=== PATIENT | female | born 2000 | race Caucasian/White ===

== ENCOUNTER 2021-11-30 13:02 | Emergency (ER) | payer OTHER, SELFPAY ==
[2021-11-30 13:22] VITALS: BP 120/86; BP 129/67; PULSE 80; RESP 16; TEMP 35.9; O2SAT 94; O2SAT 98; BMI 18.2
--- NOTE | 2021-11-30 13:59 | ED_ITS ---
HPI - General Adult General Chief complaint: ETOH/Substance Use Stated complaint: HEROIN SNORTED,NOT OD,NO NARCAN GIVEN PER EMS Time Seen by Provider: 11/30/21 13:55 Source: patient and EMS Mode of arrival: EMS Limitations: no limitations History of Present Illness HPI narrative: 21-year-old female history of drug abuse brought in by EMS for possible OD. Patient is known history of heroin abuser, patient admitted to snoring heroin today, found by her father who called the ambulance, reportedly that the patient was sober for a while. Patient in the ED is diaphoretic, semi responsive only to rubbing her chest, with pinpoint pupil, patient was given 4 mg of nasal Narcan more awake. Patient declined depression, no SI, no HI. Related Data Allergies Allergy/AdvReac Type Severity Reaction Status Date / Time egg [EGGS] Allergy Unknown UNKNOWN Unverified 04/09/20 19:11 gluten [GLUTEN] Allergy Unknown UNKNOWN Unverified 04/09/20 19:11 DAIRY PRODUCTS Allergy Unknown UNKNOWN Uncoded 04/09/20 19:11 Review of Systems Review of Systems: All other systems are reviewed and are negative Constitutional: Reports as per HPI and Reports no additional constitutional complaints Eyes: Reports as per HPI and Reports no additional eye complaints Reports system reviewed and no additional complaints, except as documented Cardiovascular: Reports as per HPI and Reports no additional cardiovascular complaints Respiratory: Reports as per HPI and Reports no additional respiratory complaints Gastrointestinal: Reports as per HPI and Reports no additional gastrointestinal complaints Genitourinary: Reports no additional female genitourinary complaints Musculoskeletal: Reports no additional musculoskeletal complaints Skin/Breast: Reports system reviewed and no additional complaints, except as docu Psychiatric: Reports no additional psychiatric complaints Endocrine: Reports no additional endocrine complaints Hematologic/Lymphatic: Reports no additional hematologic/lymphatic complaints Allergic/Immunologic: Reports no additional allergic/immunologic complaints Reports system reviewed and no additional complaints, except as documented and Reports Abnormal speech present [facility] Social History Social History Advance Directives: No Advance Directives Information Provided: No Patient : No Physical Exam ED Vital Signs: Vital Signs - 24 hr 11/30/21 13:22 11/30/21 15:54 Temperature 96.6 F L 97.8 F Pulse Rate 80 109 H Respiratory Rate 16 18 Blood Pressure 129/67 135/90 H Pulse Oximetry 98 99 BMI result Body Mass Index 18.2 Vital signs have been reviewed as appeared to be correct. Blood pressure normal. Heart rate normal. Respiration rate normal. Temperature normal. Oxygen saturation normal. Appearance: Alert. Oriented X3. No acute distress. Head: Normal external exam. Normocephalic. Atraumatic. No [place] signs noted. No raccoon eyes noted Eyes: Pin point pupils. EOMI. Conjunctiva and sclera normal. Eyelids normal. ENT: TM's Normal. Pharynx normal. Uvula midline. Moist mucous membranes. No trismus noted. No drooling noted. No muffled voice noted. Neck: Normal inspection. Neck supple. FROM. No adenopathy. Thyroid Normal. No meningeal signs. No neck mass noted. CVS: Normal heart rate and rhythm. Heart sound normal. No murmurs noted. Pulses normal throughout. Respiratory: No respiratory distress. Painless inspiration. Breath sounds normal. No wheezes/rales/rhonchi noted. Chest nontender. No accessory muscle usage noted or decreased air movement noted. Abdomen: Soft and nontender. Bowel sounds normal in all 4 quadrants. No distention noted. No organomegaly noted. No visible injury noted. Back: No CVA tenderness. Full range of motion noted. Skin: Skin warm and dry. Normal skin color. Normal skin turgor. No rashes/lesions/lacerations noted. Extremities: No lower extremity edema. Extremities exhibit normal range of motion. Extremities nontender. Neuro: Oriented X 3 after 4 mg of nasal Narcan was administrated. Cranial nerve exam: II-XII are grossly intact No motor deficit. No sensory deficit. Reflexes normal. Course Course Course Narrative: Assessment and plan. 21 years old female with history of heroin abuse, more responsive after was given nasal Narcan, will discharge with take-home nasal Narcan and interview with the care team. Patient declined any SI or HI. Reevaluation(s) Reevaluation #1: Several conversation with the patient to convince her for going to rehab and detox patient preferred to go home, patient feel safe to be discharged home. Time: 17:00 Discharge Plan Discharge Clinical Impression: Substance abuse Patient Disposition: Home, Self-Care Instructions: Polysubstance Abuse (ED)
[2021-11-30] MEDS: Naloxone HCl Nasal 4 MG SPRAY NOSTRILALT (14:03)
--- NOTE | 2021-11-30 14:07 | PC.NURSE ---
PT GIVEN 4 MG NASAL NARCAN D/T UNRESPONSIVENESS WHEN EVALUATED BY PROVIDER. PT RESPONSIVE TO MEDICATION, AWAKE AND ALERT, NOT IN ACUTE OPIATE WITHDRAWAL. TOLERATING PO W/O ISSUE. DENIES ANY SI/HI, BUT ADMITS TO RECREATIONAL, AND REGULAR HEROIN USE.
[2021-11-30] MEDS: methADONE HCl 20 MG/2 ML ORAL.CONC PO (15:08)
--- NOTE | 2021-11-30 15:26 | HO.SUDE ---
Addendum entered by Cee Nguyen 11/30/21 15:45: Please also see Addiction Medicine Consult note by Luzmaria Hughes APRN. Original Note: Met with pt in 6H to discuss substance use and overdose. Pt laying in bed, awake, alert, easily engaged in conversation. Pt reports using heroin, 1 bag IN [employer]. Prior to this, pt reports last use was 3 days ago. Pt had been using 1 bundle daily and reports IV use in the past. Age of first use was 15. In addition, pt reports using Vicodin, PO, to not get sick. Pt receives this through another person's prescription. Pt has been to treatment in the past, including ATS and 6 month residential tx in [place]. Most recent ATS admission in Jul 2021. Pt reporting withdrawal symptoms including upset stomach, body aches, chills. Pt visibly diaphoretic with dilated pupils. Pt is interested in methadone to address withdrawal symptoms. Has been prescribed Suboxone through [facility] on [address] as recently as 2 weeks ago but has been thinking about transitioning to methadone. Pts longest period in recovery was 2 years, pt reports having a boyfriend was helpful to maintain recovery. Pt is interested in ATS at this time. T/w will initiate bedsearch. Denies questions or concerns. Discussed with Luzmaria Hughes APRN.
--- NOTE | 2021-11-30 15:27 | HO.ADDICTCON ---
History of Present Illness Date of Service: 11/30/2021 Chief Complaint: HEROIN SNORTED,NOT OD,NO NARCAN GIVEN PER EMS Reason for Consult: overdose HPI Narrative: Patient is a 21 year old female in ED following opioid overdose requiring narcan. When seen by this fiction writer patient was awake, alert, diaphoretic, reporting chills, and restless. Reports she has been using opioids since age of 15. Had 2 years in recovery from [age] and started using again at 18. She has had approx 6 previous overdoses (this is first visit to [facility]) Has been on both vivitrol and buprenorphine--most recently buprenorphine up until about 2 weeks ago when she stopped taking it and was using heroin instead Has been using approx a bundle QD, reports prior to arrival using 1 bag IN History of IVDU Limited social supports. Lives with her father, but states he is unwilling to take her back home because I have done this to him so many times Denies any cocaine, benzodiazepine or alcohol use Tearful and requesting assistance with getting into treatment. Discussed treating withdrawals and patient declined restarting bupreorphine and accepted methadone--reporting that she had been considering transitioning to this. Only other previous methadone treatment has been in ATS setting when given as a taper during detox. Past Psychiatric History: Not reviewed Personal & Social History: Lives with her father, currently not employed. Limited social supports Review of Systems Constitutional: Reports as per HPI Diagnostics Vital Signs (24Hr): Vital Signs - 24 hr 11/30/21 13:22 Temperature 96.6 F L Pulse Rate 80 Respiratory Rate 16 Blood Pressure 129/67 Pulse Oximetry 98 BMI result Body Mass Index 18.2 Mental Status Exam Mental Status Exam Patient Appearance: Perspiring Patient Orientation: Person, Place, Time and Situation Patient Behavior: Cooperative and Crying Mood Description: Sad Affect Description: Sad Thought Process: Linear Thought Content: positive for Linear Judgement: Fair Medications Allergies Allergies Allergy/AdvReac Type Severity Reaction Status Date / Time egg [EGGS] Allergy Unknown UNKNOWN Unverified 04/09/20 19:11 gluten [GLUTEN] Allergy Unknown UNKNOWN Unverified 04/09/20 19:11 DAIRY PRODUCTS Allergy Unknown UNKNOWN Uncoded 04/09/20 19:11 Assessment & Plan Assessment & Plan (1) Opioid use disorder: Status: Acute Code(s): F11.90 - Opioid use, unspecified, uncomplicated Assessment and Plan: methadone 20mg administered to address withdrawal sx RSRN notified regarding patients desire for ATS referral/admission I spent __30____ minutes with the patient and/or on the patient floor today, greater than?50% of which was spent counseling/coordinating care. PMF Social History Social History Advance Directives: No Advance Directives Information Provided: No Patient : No
[2021-11-30 15:54] VITALS: BP 135/90; PULSE 109; RESP 18; TEMP 36.6; O2SAT 99
--- NOTE | 2021-11-30 16:30 | MHC.RECOVRN ---
Pt had been interested in ATS, referral sent to [facility] due to having a bed available. When [facility] requested phone screen, pt declined the bed. Pt states I just want to go home and see my dog and have a cigarette. My dad is coming to get me. As long as I go to treatment tomorrow I can go home. Pt plans to follow up with [facility] and encouraged to return to [facility] if needed. Pt provided with t/w contact information as well. Discussed with CARE Team as well as Luzmaria Hughes APRN.
[2021-11-30] MEDS: Ondansetron ODT 4 MG TAB.RAPDIS TRANSLINGU (16:51)
== END 2021-11-30 17:21 | disposition home or self-care (01) ==
LOC: HO.ED 14:42
PROVIDERS: Emergency Provider Emergency Medicine
DX: T40.1X1A Poisoning by heroin, accidental (unintentional), initial encounter (principal); Y92.9 Unspecified place or not applicable; F11.10 Opioid abuse, uncomplicated; Z71.51 Drug abuse counseling and surveillance of drug abuser
CPT/HCPCS: 99283

== ENCOUNTER 2023-04-13 07:50 | Outpatient (AMB) | payer OTHER, SELFPAY ==
[2023-04-13 07:55] VITALS: BP 104/52; PULSE 67; O2SAT 98; BMI 19.4
--- NOTE | 2023-04-13 07:55 | MHC.PC.OV ---
Vital Signs 04/13/23 07:55 Height 5 ft 4 in Weight 113 lb BMI 19.4 BP 104/52 L Blood Pressure Location Lt brachial Position Sitting Pulse 67 Pulse Source Pulse Oximeter Pulse Oximetry (%) 98 Oxygen Delivery Method Room Air Intake Visit Reasons: New patient-requesting physical Allergies egg [EGGS] Allergy (Unknown, Verified 04/13/23 08:10) UNKNOWN gluten [GLUTEN] Allergy (Unknown, Verified 04/13/23 08:10) UNKNOWN DAIRY PRODUCTS Allergy (Unknown, Uncoded 04/13/23 07:55) UNKNOWN Medication List - Last Reconciled 04/13/23 by Yonis Steward PA-C atomoxetine (Strattera) 40 mg PO DAILY oxcarbazepine (Trileptal) 600 mg PO BEDTIME quetiapine (Seroquel) 300 mg PO BEDTIME Tobacco use date assessed: 04/13/23 Dental Screening Dental Screen Date: 04/13/23 Did you have a dental visit in the last 12 months?: Yes Did you have a dental problem in the last 6 months where you did not have access to dental care?: No Was dental information given to patient?: Patient has dentist HPI New patient-requesting physical HPI Details Patient is a 22-year-old female here today as a new patient requesting annual physical. Patient has a past medical history significant for ADHD, major depressive disorder, opiate use disorder. .. MDD: does see a psyciatrsit and mental health therapist. He does have a history of the opiate do cyst order and has been clean and sober from opiates over the last nearly 17 months. Has had her Sever's license taken away due to reckless driving and now needs evaluations every month including drug screens to confirm her sobriety. RV paperwork filled out today in office. 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 1. Little interest or pleasure in doing things: more than half the days 2. Feeling down, depressed, or hopeless: more than half the days 3. Trouble falling or staying asleep, or sleeping too much: nearly every day 4. Feeling tired or having little energy: nearly every day 5. Poor appetite or overeating: more than half the days 6. Feeling bad about yourself - or that you are a failure or have let yourself or your family down: several days 7. Trouble concentrating on things, such as reading the newspaper or watching television: several days 8. Moving or speaking so slowly that other people could have noticed. Or the opposite - being so fidgety or restless that you have been moving around a lot more than usual: not at all 9. Thoughts that you would be better off or of hurting yourself in some way: not at all Total score: 14 Depression Screening Interpretation: Positive Source: Developed by Drs. Baltazar Granados, Estelle Taylor, David Brandt and colleagues, with an educational izabel from [employer]. Thrive Questionnaire Date Thrive assessed: 04/13/23 I am a: Patient What is your living situation today?: I have a steady place to live Within the past 12 months, did the food you bought not last and you didn't have the money to get more?: Never true Within the past 12 months, did you worry whether your food would run out before you got money to buy more?: Never true Do you have trouble paying for medicines?: No Do you have trouble getting transportation to medical appointments?: No Do you have trouble paying your heating and electricity bill?: No Do you have trouble taking care of your child, family member or friend?: No Do you have trouble with day-to-day activities such as bathing, preparing meals, shopping, managing finances, etc.?: No Are you currently unemployed and looking for a job?: No Are you interested in more education?: No Currently or been in a relationship where the following occur: no concerns reported AUDIT C Alcohol Use Questionnaire (AUDIT-C) 1. How often do you have a drink containing alcohol?: 2-4 times a month 2. How many drinks containing alcohol do you have on a typical day when you are drinking?: 1 or 2 3. How often do you have six or more drinks on one occasion?: Never Total Score: 2 MARY-7 AMB Questionnaire MARY-7 Date MARY - 7 assessed: 04/13/23 Feeling nervous, anxious, or on edge: 1 = Several days Not being able to stop or control worryin = Not at all Worrying too much about different things: 0 = Not at all Trouble relaxin = Several days Being so restless that it is hard to sit still: 1 = Several days Becoming easily annoyed or irritable: 2 = More than half the days Feeling afraid as if something awful might happen: 0 = Not at all Total MARY-7 score (0-4 normal; 5-9 mild; 10-14 moderate; 15-21 severe): 5 Source: Developed by Drs. Baltazar Granados, Estelle Taylor, David Brandt and colleagues, with an educational izabel from [employer]. Review of Systems Const Denies body aches, Denies chills, Denies excessive sweating, Denies fatigue, Denies fever(s) and Denies headache(s) Eyes Denies blurry vision ENT Denies dysphagia, Denies vertigo, Denies dizziness, Denies headache(s), Denies hearing loss and Denies tinnitus Card Denies chest pain, Denies chest pain with activity, Denies syncope, Denies irregular heart rhythm and Denies dyspnea Resp Denies chest congestion, Denies cough, Denies hemoptysis, Denies dyspnea and Denies wheezing GI Denies abdominal pain, Denies melena, Denies hematochezia, Denies coffee ground emesis, Denies dysphagia, Denies diarrhea, Denies nausea and Denies vomiting Denies urinary frequency, Denies dysuria, Denies urinary hesitancy and Denies urinary urgency Musc Denies arthralgias, Denies limited range of motion, Denies muscle cramps and Denies muscle weakness Skin/Breast Denies rash and Denies skin ulcer Neuro Denies Abnormal speech present, Denies confusion, Denies vertigo, Denies dizziness, Denies syncope, Denies headache(s), Denies memory loss and Denies seizure-like activity Psych Denies anxiety, Denies confusion, Denies depression, Denies memory loss, Denies panic attacks and Denies paranoia Endo Denies excessive sweating, Denies fatigue, Denies flushing, Denies polydipsia and Denies polyuria Aller/Immun Denies wheezing Physical exam (Primary Care) Vital Signs: Last Vital Signs Pulse 67 04/13/23 07:55 BP 104/52 L 04/13/23 07:55 Pulse Ox 98 04/13/23 07:55 Oxygen Delivery Method Room Air 04/13/23 07:55 BMI result Body Mass Index 19.4 Tobacco/Smoking Status: Tobacco use Status Tobacco use date assessed 04/13/23 04/13/23 08:07 Patient Tobacco Use Status Current everyday Tobacco 04/13/23 08:16 Tobacco use type Smokeless Tobacco 04/13/23 08:16 e-Cigarette/Vaping Use Currently Using 04/13/23 08:16 PHQ-9: PHQ-9 Score PHQ-9: Total score 14 04/13/23 08:12 Depression Screening Interpretation: Positive Thrive Assessment: Date of Thrive Assessment Date Thrive assessed 04/13/23 04/13/23 08:07 Currently or been in a relationship where the following occur: no concerns reported Const General: cooperative, comfortable, no acute distress, alert and awake; No confusion Orientation/consciousness: oriented to person, oriented to place, patient oriented x3 and No confusion HENMT Head: Yes normocephalic Ears: external ears normal and TM's normal bilaterally Face and sinus: No sinus tenderness Mouth: Normal oral and palatal mucosa present and tongue normal Teeth and gingiva: dentition normal and gingiva normal Throat: Yes posterior oropharynx normal, Yes tonsils normal and Yes uvula midline Eyes Conjunctivae: conjunctivae normal Sclerae: sclerae normal Pupils: Equal, round and reactive pupils present EOM: EOMs intact bilaterally Direct Ophthalmoscopy: No no photophobia Neck Neck: Yes no lymphadenopathy, No tender and Yes no JVD Thyroid: Thyroid normal Carotids: no bruits Chest Chest palpation & inspection: no tenderness Resp Effort & Inspection: normal respiratory effort, no audible wheezes, not labored and no stridor Auscultation: no crackles, no rales, no rhonchi and no wheezes Cardio Jugular venous distension: no JVD Rate: regular rate, not bradycardic and not tachycardic Rhythm: regular rhythm Bruits: no carotid bruits Peripheral pulses: Peripheral pulses 2+ throughout GI Inspection: Yes normal to inspection, No abdominal wall ecchymosis and No visible herniation Palpation (GI): Soft to palpation, nontender, no guarding, not rigid and No hepatosplenomegaly present Auscultation: normoactive bowel sounds General: Yes no CVA tenderness Back/Spine/Pelvis Back: no CVA tenderness and No back tenderness Cervical Spine: cervical ROM normal Thoracic/Lumbar Spine: thoracic and lumbar spine normal to inspection, straight leg raise negative bilaterally, No thoraco-lumbar ROM limited and No lumbar spinal tenderness Skin Lesions: no lesions Rashes: no rashes Wounds: no wounds Neuro General: oriented to person, oriented to place, patient oriented x3, CN's II-XI intact bilaterally and No confusion Cranial nerves: Yes Equal, round and reactive pupils present and Yes Normal accommodation reflex present Cognition (Neuro): normal cognition Speech: No Abnormal speech present Gait exam (Neuro): Normal gait present Motor exam (neuro): 5/5 motor strength present throughout Extrem Right upper extremity: full ROM; no cyanosis Left upper extremity: full ROM; no cyanosis Right lower extremity: no edema Left lower extremity: no edema Psych Appearance: grossly normal Mental Status: mental status grossly normal Affect: normal affect Attitude: cooperative Thought process: Normal thought process present Assessment and Plan Assessment & Plan (1) Annual physical exam: Code(s): Z00.00 - Encounter for general adult medical examination without abnormal findings (2) MDD (major depressive disorder), recurrent episode, moderate: Code(s): F33.1 - Major depressive disorder, recurrent, moderate Plan: Patient does have a history of major depressive disorder and bipolar disorder. See is seeing a mental health therapist and a psychiatrist who manages her mental health medication. She feels fairly well stable from a mental health point of view at this time. (3) Bipolar disorder: Code(s): F31.9 - Bipolar disorder, unspecified Qualifiers: Active/Remission status: in full remission Most recent bipolar episode type: hypomanic Qualified Code(s): F31.72 - Bipolar disorder, in full remission, most recent episode hypomanic Plan: As above Followed by psychiatrist and is on medication has stabilized her mood. (4) Screening for diabetes mellitus (DM): Code(s): Z13.1 - Encounter for screening for diabetes mellitus (5) Opioid use disorder: Code(s): F11.90 - Opioid use, unspecified, uncomplicated Plan: Patient has a history of opiate use disorder now in remission. Was on medication to help her with her opiate use disorder though now has been able to remain sober without medication. Now nearly 17 months sober from opiates. Orders: Orders Comprehensive Muse. Panel Fast Today Z13.1 - Encounter for screening for diabetes mellitus Drug Screen Urine Today F11.90 - Opioid use, unspecified, uncomplicated Drug Screen Urine Today F11.90 - Opioid use, unspecified, uncomplicated Drug Screen Urine Today F11.90 - Opioid use, unspecified, uncomplicated Drug Screen Urine Today F11.90 - Opioid use, unspecified, uncomplicated Drug Screen Urine Today F11.90 - Opioid use, unspecified, uncomplicated Drug Screen Urine Today F11.90 - Opioid use, unspecified, uncomplicated Drug Screen Urine Today F11.90 - Opioid use, unspecified, uncomplicated Drug Screen Urine Today F11.90 - Opioid use, unspecified, uncomplicated Drug Screen Urine Today F11.90 - Opioid use, unspecified, uncomplicated Drug Screen Urine Today F11.90 - Opioid use, unspecified, uncomplicated Drug Screen Urine Today F11.90 - Opioid use, unspecified, uncomplicated Drug Screen Urine Today F11.90 - Opioid use, unspecified, uncomplicated Coding Level of Care Code New Pt Prev Care [id number] Diagnoses Annual physical exam Z00.00 MDD (major depressive disorder), recurrent episode, moderate F33.1 Bipolar disorder, in full remission, most recent episode hypomanic F31.72 Active/Remission status: in full remission Most recent bipolar episode type: hypomanic Screening for diabetes mellitus (DM) Z13.1 Opioid use disorder F11.90
== END 2023-04-13 08:40 | disposition home or self-care (01) ==
PROVIDERS: PCP Physician Assistant; Visit Provider Physician Assistant
DX: Z00.00 Encounter for general adult medical examination without abnormal findings (principal); F33.1 Major depressive disorder, recurrent, moderate; Z13.1 Encounter for screening for diabetes mellitus; F11.90 Opioid use, unspecified, uncomplicated
CPT/HCPCS: 99385

== ENCOUNTER 2023-04-14 11:56 | Outpatient (REF) | payer OTHER, SELFPAY ==
[2023-04-14 14:06] LABS: Amphetamine Screen Urine Not Detected (Not Detect); Barbiturates, Urine Not Detected (Not Detect); Benzodiazepines Screen Urine Not Detected (Not Detect); Cannabinoid Screen Urine POSITIVE (Not Detect); Cocaine Screen Urine Not Detected (Not Detect); Fentanyl, urine Not Detected (Not Detect); Opiate Screen Urine Not Detected (Not Detect); Phencyclidine Screen Urine Not Detected (Not Detect)
[2023-04-14 14:12] LABS: Alanine Aminotransferase 10 U/L (0-31); Albumin Level 4.3 g/dL (3.5-5.0); Alkaline Phosphatase 62 U/L (39-117); Anion Gap 12 (12-20); Aspartate Amino Transferase 16 U/L (5-31); Bilirubin Total 0.3 mg/dL (0.0-1.0); Blood Urea Nitrogen 13 mg/dL (9-16); Carbon Dioxide 25 mmol/L (22-29); Chloride 108 mmol/L (96-108); Estimated Glomerular Filt Rate > 60; Glucose Fasting 90 mg/dL (60-99); Potassium 4.3 mmol/L (3.3-5.1); Sodium 141 mmol/L (135-145); Total Protein 6.8 g/dL (6.5-8.0)
== END 2023-04-14 11:57 | disposition home or self-care (01) ==
LOC: HO.LAB 11:56
PROVIDERS: PCP Physician Assistant; Visit Provider Physician Assistant
DX: F11.90 Opioid use, unspecified, uncomplicated (principal); Z13.1 Encounter for screening for diabetes mellitus
CPT/HCPCS: 80053; 80307

== ENCOUNTER 2023-05-11 09:42 | Outpatient (AMB) | payer OTHER, SELFPAY ==
--- NOTE | 2023-05-11 09:55 | MHC.PC.OV ---
Vital Signs 05/11/23 10:10 Height 5 ft 4 in Weight 106 lb 4 oz BMI 18.2 BP 90/66 Blood Pressure Location Lt brachial Position Sitting Respiration 16 Pulse 100 Pulse Source Pulse Oximeter Pulse Oximetry (%) 99 Oxygen Delivery Method Room Air Intake Visit Reasons: f/u Motorvehicle form Intake Note: Pt is here for [facility] Medical Evaluation Form Update. Lead Nitrate Processor Required: No Accompanied by: Self / Same As Patient Allergies egg [EGGS] Allergy (Unknown, Verified 05/11/23 10:12) UNKNOWN gluten [GLUTEN] Allergy (Unknown, Verified 05/11/23 10:12) UNKNOWN DAIRY PRODUCTS Allergy (Unknown, Uncoded 05/11/23 10:12) UNKNOWN Medication List - Last Reconciled 05/11/23 by Yonis Steward PA-C oxcarbazepine (Trileptal) 600 mg PO BEDTIME quetiapine (Seroquel) 300 mg PO BEDTIME Tobacco use date assessed: 04/13/23 Dental Screening Dental Screen Date: 05/11/23 Did you have a dental visit in the last 12 months?: Yes Did you have a dental problem in the last 6 months where you did not have access to dental care?: No Was dental information given to patient?: Patient has dentist HPI f/u Motorvehicle form HPI Details Patient is a 22-year-old female here today for follow-up visit.. Patient has a past medical history significant for ADHD, major depressive disorder, opiate use disorder. .. MDD: does see a psychiatrist and mental health therapist. He does have a history of the opiate use disorder and has been clean and sober from opiates over the last 1 1/2 yrs. Has had her Sever's license taken away due to reckless driving and now needs evaluations every month including drug screens to confirm her sobriety. RV paperwork filled out today in office. Concern--> she also reports having bilateral foot arch pain and flat feet. She has used [id number] foot arch support though has not been effective. She would like to see a advertising copywriter for professional evaluation Laboratory Tests 04/14/23 12:57 Urine Opiates Scre en Not Detected U Marijuana (THC) Screen POSITIVE H PFSH Family History Mother Lung cancer metastatic to brain Father No problems noted. 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 Baltazar Granados, Estelle Taylor, David Brandt and colleagues, with an educational iazbel from [employer]. Review of Systems Const Denies headache(s) Eyes Denies loss of vision ENT Denies vertigo, Denies dizziness, Denies headache(s) and Denies sore throat Card Denies chest pain, Denies leg edema and Denies lightheadedness Resp Denies cough, Denies hemoptysis and Denies wheezing GI Denies abdominal pain, Denies melena, Denies constipation, Denies diarrhea and Denies vomiting Denies urinary frequency, Denies dysuria and Denies urinary urgency Musc Denies arthralgias, Denies joint swelling, Denies numbness and Denies tingling Neuro Denies Abnormal speech present, Denies behavioral changes, Denies vertigo, Denies dizziness, Denies headache(s), Denies loss of vision, Denies memory loss, Denies numbness and Denies tingling Psych Denies anxiety, Denies behavioral changes, Denies depression, Denies memory loss and Denies panic attacks Abilio/Lymph Denies easy bleeding and Denies easy bruising Aller/Immun Denies wheezing Physical exam (Primary Care) Vital Signs: Last Vital Signs Pulse 100 05/11/23 10:10 Resp 16 05/11/23 10:10 BP 90/66 05/11/23 10:10 Pulse Ox 99 05/11/23 10:10 Oxygen Delivery Method Room Air 05/11/23 10:10 BMI result Body Mass Index 18.2 Tobacco/Smoking Status: Tobacco use Status Tobacco use date assessed 04/13/23 05/11/23 09:56 Patient Tobacco Use Status Current everyday Tobacco 05/11/23 09:56 Tobacco use type Smokeless Tobacco 05/11/23 09:56 e-Cigarette/Vaping Use Currently Using 05/11/23 09:56 Thrive Assessment: Date of Thrive Assessment Date Thrive assessed 04/13/23 05/11/23 09:56 Const General: healthy appearing, no acute distress, alert and awake Nutritional Appearance: well nourished Orientation/consciousness: oriented to person, oriented to place and oriented to time HENMT Ears: TM's normal bilaterally General nose exam: Normal nasal mucous membranes and turbinates present Eyes Conjunctivae: conjunctivae normal Sclerae: sclerae normal Pupils: Equal, round and reactive pupils present Neck Neck: Yes no lymphadenopathy and Yes no JVD Thyroid: Thyroid normal Carotids: no bruits Resp Effort & Inspection: normal respiratory effort and not tachypneic Auscultation: no crackles, no rales, no rhonchi and no wheezes Cardio Rate: regular rate Rhythm: regular rhythm Heart sounds: no murmurs and normal S1 and S2 GI Palpation (GI): Soft to palpation, nontender, no hepatomegaly and no splenomegaly Auscultation: normal bowel sounds Skin General skin exam: no rashes or lesions noted and dry skin Neuro General: oriented to person, oriented to place and oriented to time Cranial nerves: Yes Equal, round and reactive pupils present Speech: No Abnormal speech present Gait exam (Neuro): Normal gait present Motor exam (neuro): no tremor noted Extrem Right upper extremity: full ROM Left upper extremity: full ROM Right lower extremity: full ROM; no edema Left lower extremity: full ROM; no edema Psych Mental Status: mental status grossly normal Speech and movement: Normal speech and movement present Affect: normal affect Attitude: cooperative Thought process: Normal thought process present Assessment and Plan Assessment & Plan (1) Opioid use disorder: Code(s): F11.90 - Opioid use, unspecified, uncomplicated Plan: Patient has a history of opiate use disorder now in remission. Was on medication to help her with her opiate use disorder though now has been able to remain sober without medication. Has been sober now over a year and half. (2) Flat feet, bilateral: Code(s): M21.41 - Flat foot [pes planus] (acquired), right foot; M21.42 - Flat foot [pes planus] (acquired), left foot (3) MDD (major depressive disorder), recurrent episode, moderate: Code(s): F33.1 - Major depressive disorder, recurrent, moderate Plan: Patient does have a history of major depressive disorder and bipolar disorder. See is seeing a mental health therapist and a psychiatrist who manages her mental health medication. She feels fairly well stable from a mental health point of view at this time. (4) Bipolar disorder: Code(s): F31.9 - Bipolar disorder, unspecified Qualifiers: Active/Remission status: in full remission Most recent bipolar episode type: hypomanic Qualified Code(s): F31.72 - Bipolar disorder, in full remission, most recent episode hypomanic Plan: As above Followed by psychiatrist and is on medication has stabilized her mood. Orders: Referrals Podiatry Referral M21.41 - Flat foot [pes planus] (acquired), right foot, M21.42 - Flat foot [pes planus] (acquired), left foot Coding Level of Care Code Est Pt Level 3 (41013) Diagnoses Opioid use disorder F11.90 Flat feet, bilateral M21.41; M21.42 MDD (major depressive disorder), recurrent episode, moderate F33.1 Bipolar disorder, in full remission, most recent episode hypomanic F31.72 Active/Remission status: in full remission Most recent bipolar episode type: hypomanic
[2023-05-11 10:10] VITALS: BP 90/66; PULSE 100; RESP 16; O2SAT 99; BMI 18.2
== END 2023-05-11 10:22 | disposition home or self-care (01) ==
PROVIDERS: PCP Physician Assistant; Visit Provider Physician Assistant
DX: M21.41 Flat foot [pes planus] (acquired), right foot (principal); F31.72 Bipolar disorder, in full remission, most recent episode hypomanic; F11.90 Opioid use, unspecified, uncomplicated; M21.42 Flat foot [pes planus] (acquired), left foot
CPT/HCPCS: 99213

== ENCOUNTER 2023-06-08 14:08 | Outpatient (AMB) | payer OTHER, SELFPAY ==
[2023-06-08 14:18] VITALS: BP 102/62; PULSE 90; O2SAT 99; BMI 18.8
--- NOTE | 2023-06-08 14:18 | A.OFFPC_ITS ---
Vital Signs 06/08/23 14:18 Height 5 ft 4 in Weight 109 lb 8 oz BMI 18.8 BP 102/62 Blood Pressure Location Rt brachial Position Sitting Pulse 90 Pulse Source Pulse Oximeter Pulse Oximetry (%) 99 Oxygen Delivery Method Room Air Intake Visit Reasons: f/u Motor vehicle Mysql Database Developer Required: No Accompanied by: Self / Same As Patient Allergies egg [EGGS] Allergy (Unknown, Verified 06/08/23 14:27) UNKNOWN gluten [GLUTEN] Allergy (Unknown, Verified 06/08/23 14:27) UNKNOWN DAIRY PRODUCTS Allergy (Unknown, Uncoded 05/11/23 10:12) UNKNOWN Tobacco use date assessed: 04/13/23 Dental Screening Dental Screen Date: 06/08/23 Did you have a dental visit in the last 12 months?: Yes Did you have a dental problem in the last 6 months where you did not have access to dental care?: No Was dental information given to patient?: Patient has dentist HPI f/u Motor vehicle HPI Details Patient is a 22-year-old female here today for follow-up visit.. Patient has a past medical history significant for ADHD, major depressive disorder, opiate use disorder. .. MDD: does see a psychiatrist and mental health therapist. He does have a history of the opiate use disorder and has been clean and sober from opiates over the last 1 1/2 yrs. 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 RV paperwork filled out today in office. [facility] Family History Mother Lung cancer metastatic to brain Father No problems noted. 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 Baltazar Granados, Estelle Taylor, David Brandt and colleagues, with an educational izabel from [employer]. Review of Systems Const Denies headache(s) Eyes Denies loss of vision ENT Denies vertigo, Denies dizziness, Denies headache(s) and Denies sore throat Card Denies chest pain, Denies leg edema and Denies lightheadedness Resp Denies cough, Denies hemoptysis and Denies wheezing GI Denies abdominal pain, Denies melena, Denies constipation, Denies diarrhea and Denies vomiting Denies urinary frequency, Denies dysuria and Denies urinary urgency Musc Denies arthralgias, Denies joint swelling, Denies numbness and Denies tingling Neuro Denies Abnormal speech present, Denies behavioral changes, Denies vertigo, Denies dizziness, Denies headache(s), Denies loss of vision, Denies memory loss, Denies numbness and Denies tingling Psych Denies anxiety, Denies behavioral changes, Denies depression, Denies memory loss and Denies panic attacks Abilio/Lymph Denies easy bleeding and Denies easy bruising Aller/Immun Denies wheezing Physical exam (Primary Care) Vital Signs: Last Vital Signs Pulse 90 06/08/23 14:18 BP 102/62 06/08/23 14:18 Pulse Ox 99 06/08/23 14:18 Oxygen Delivery Method Room Air 06/08/23 14:18 BMI result Body Mass Index 18.8 Tobacco/Smoking Status: Tobacco use Status Tobacco use date assessed 04/13/23 06/08/23 14:25 Patient Tobacco Use Status Current everyday Tobacco 06/08/23 14:25 Tobacco use type Smokeless Tobacco 06/08/23 14:25 e-Cigarette/Vaping Use Currently Using 06/08/23 14:25 Thrive Assessment: Date of Thrive Assessment Date Thrive assessed 04/13/23 06/08/23 14:25 Const General: healthy appearing, no acute distress, alert and awake Nutritional Appearance: well nourished Orientation/consciousness: oriented to person, oriented to place and oriented to time HENMT Ears: TM's normal bilaterally General nose exam: Normal nasal mucous membranes and turbinates present Eyes Conjunctivae: conjunctivae normal Sclerae: sclerae normal Pupils: Equal, round and reactive pupils present Neck Neck: Yes no lymphadenopathy and Yes no JVD Thyroid: Thyroid normal Carotids: no bruits Resp Effort & Inspection: normal respiratory effort and not tachypneic Auscultation: no crackles, no rales, no rhonchi and no wheezes Cardio Rate: regular rate Rhythm: regular rhythm Heart sounds: no murmurs and normal S1 and S2 GI Palpation (GI): Soft to palpation, nontender, no hepatomegaly and no splenomegaly Auscultation: normal bowel sounds Skin General skin exam: no rashes or lesions noted and dry skin Neuro General: oriented to person, oriented to place and oriented to time Cranial nerves: Yes Equal, round and reactive pupils present Speech: No Abnormal speech present Gait exam (Neuro): Normal gait present Motor exam (neuro): no tremor noted Extrem Right upper extremity: full ROM Left upper extremity: full ROM Right lower extremity: full ROM; no edema Left lower extremity: full ROM; no edema Psych Mental Status: mental status grossly normal Speech and movement: Normal speech and movement present Affect: normal affect Attitude: cooperative Thought process: Normal thought process present Assessment and Plan Assessment & Plan (1) Opioid use disorder: Code(s): F11.90 - Opioid use, unspecified, uncomplicated Plan: Patient has a history of opiate use disorder now in remission. Was on medication to help her with her opiate use disorder though now has been able to remain sober without medication. Has been sober now over a year and half. (2) MDD (major depressive disorder), recurrent episode, moderate: Code(s): F33.1 - Major depressive disorder, recurrent, moderate Plan: Patient does have a history of major depressive disorder and bipolar disorder. She is seeing a mental health therapist and a psychiatrist who manages her mental health medication. She feels fairly well stable from a mental health point of view at this time. (3) Bipolar disorder: Code(s): F31.9 - Bipolar disorder, unspecified Qualifiers: Active/Remission status: in full remission Most recent bipolar episode type: hypomanic Qualified Code(s): F31.72 - Bipolar disorder, in full remission, most recent episode hypomanic Plan: As above Followed by psychiatrist and is on medication has stabilized her mood. Coding Level of Care Code Est Pt Level 3 (79446) Diagnoses Opioid use disorder F11.90 MDD (major depressive disorder), recurrent episode, moderate F33.1 Bipolar disorder, in full remission, most recent episode hypomanic F31.72 Active/Remission status: in full remission Most recent bipolar episode type: hypomanic
== END 2023-06-08 15:06 | disposition home or self-care (01) ==
PROVIDERS: PCP Physician Assistant; Visit Provider Physician Assistant
DX: F11.90 Opioid use, unspecified, uncomplicated (principal); F31.72 Bipolar disorder, in full remission, most recent episode hypomanic
CPT/HCPCS: 99213

== ENCOUNTER 2023-06-08 15:16 | Outpatient (REF) | payer OTHER, MEDICAID, SELFPAY ==
[2023-06-08 16:21] LABS: Amphetamine Screen Urine Not Detected (Not Detect); Barbiturates, Urine Not Detected (Not Detect); Benzodiazepines Screen Urine Not Detected (Not Detect); Cannabinoid Screen Urine Not Detected (Not Detect); Cocaine Screen Urine Not Detected (Not Detect); Fentanyl, urine Not Detected (Not Detect); Opiate Screen Urine Not Detected (Not Detect); Phencyclidine Screen Urine Not Detected (Not Detect)
== END 2023-06-08 15:17 | disposition home or self-care (01) ==
LOC: HO.LAB 15:16
PROVIDERS: PCP Physician Assistant; Visit Provider Physician Assistant
DX: F11.90 Opioid use, unspecified, uncomplicated (principal)
CPT/HCPCS: 80307

== ENCOUNTER 2023-07-01 09:28 | Emergency (ER) | payer OTHER, SELFPAY ==
[2023-07-01 09:52] VITALS: BP 111/77; PULSE 103; RESP 16; TEMP 36.8; O2SAT 96; BMI 18.3
--- NOTE | 2023-07-01 10:31 | ED_ITS ---
HPI - Female Genitourinary General Chief complaint: Urogenital-Female Stated complaint: quest uti Time Seen by Provider: 07/01/23 10:31 Source: patient Mode of arrival: ambulatory Limitations: no limitations History of Present Illness HPI Narrative: Patient is a 23 year old assigned female at with a history of depression and substance use presenting to the emergency department today with painful burning with urination and increased urinary frequency. Patient states that over the last week she has had pain with urination and increased urinary frequency. Patient denies any dizziness, lightheadedness, abdominal pain, nausea, vomiting, fever, chills, blurry vision, double vision, loss of vision, chest pain, difficulty breathing, shortness of breath, back pain, night sweats, increased urinary urgency, blood in her urine or stool, syncope or a near syncopal episode, recent trauma or falls, bowel incontinence, bladder incontinence, bowel retention, bladder retention, or any other complaints at this time. MD elicited complaint: dysuria Onset (ago): week(s) (1) Severity: mild Severity scale (1-10): 2 Vaginal bleeding: none Related Data Home Medications Medication Instructions Recorded Confirmed oxcarbazepine 600 mg tablet 600 mg PO BEDTIME 04/13/23 05/11/23 (Trileptal) quetiapine 300 mg tablet (Seroquel) 300 mg PO BEDTIME 04/13/23 05/11/23 Previous Rx's Medication Instructions Recorded cefuroxime axetil 250 mg tablet 250 mg PO BID 7 days #14 tabs 07/01/23 Allergies Allergy/AdvReac Type Severity Reaction Status Date / Time egg [EGGS] Allergy Unknown UNKNOWN Verified 06/08/23 14:27 gluten [GLUTEN] Allergy Unknown UNKNOWN Verified 06/08/23 14:27 DAIRY [employer]ODUCTS Allergy Unknown UNKNOWN Uncoded 05/11/23 10:12 Review of Systems Constitutional: Constitutional: Reports no additional constitutional complaints, Denies chills, Denies fever(s) and Denies night sweats Eyes: Eyes: Reports no additional eye complaints, Denies blurry vision, Denies change in vision, Denies diplopia, Denies eye discharge, Denies loss of vision and Denies eye pain ENT: Denies dizziness Cardiovascular: Cardiovascular: Reports no additional cardiovascular complaints, Denies chest pain, Denies lightheadedness, Denies Loss of Consciousness and Denies dyspnea Respiratory: Respiratory: Reports no additional respiratory complaints and Denies dyspnea Gastrointestinal: Gastrointestinal: Reports no additional gastrointestinal complaints, Denies abdominal pain, Denies melena, Denies hematochezia, Denies change in bowel habits and Denies change in stool character Genitourinary: Genitourinary: Denies hematuria, Denies urinary frequency, Reports dysuria, Denies urinary incontinence, Denies urinary hesitancy and Denies urinary urgency Comments: increased urinary urgency Musculoskeletal: Musculoskeletal: Reports no additional musculoskeletal com plaints, Denies numbness and Denies tingling Neurologic: Denies dizziness, Denies loss of vision, Denies numbness and Denies tingling Psychiatric: Psychiatric: Reports no additional psychiatric complaints Endocrine: Endocrine: Reports no additional endocrine complaints Hematologic/Lymphatic: Hematologic/Lymphatic: Reports no additional hematologic/lymphatic complaints Allergic/Immunologic: Allergic/Immunologic: Reports no additional allergic/immunologic complaints [facility] Past Medical History Attestation statement: The following information was validated with the patient. Source: old records reviewed and nursing notes reviewed Medical History Flat feet, bilateral Annual physical exam Screening for diabetes mellitus (DM) Juvenile absence epilepsy Hx of substance abuse Depression, major, in partial remission Family History Family History Mother Lung cancer metastatic to brain Father No problems noted. 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 [employer] Cognitive needs: No Hearing needs: No Vision needs: Yes Physical Exam Vital Signs: Vital Signs: Last Vital Signs Temp 98.3 F 07/01/23 09:52 Pulse 103 H 07/01/23 09:52 Resp 16 07/01/23 09:52 BP 111/77 07/01/23 09:52 Pulse Ox 96 07/01/23 09:52 BMI result Body Mass Index 18.3 Const: General: cooperative, no acute distress, alert and awake Nutritional Appearance: well nourished Orientation/consciousness: patient oriented x3 Limitations: no limitations HEENT: Head: Yes normal to inspection and Yes atraumatic Ears: hearing grossly normal bilaterally and external ears normal General nose exam: Normal external nose present, no nasal discharge noted and no epistaxis Face and sinus: Yes normal facial exam, No abrasion and No laceration Mouth: Normal oral and palatal mucosa present, no drooling and no muffled voice Eyes: General: appearance normal, both eyes and all related structures Periorbital: periorbital findings normal Eyelids: Yes eyelids normal Conjunctivae: conjunctivae normal Pupils: Equal, round and reactive pupils present EOM: EOMs intact bilaterally Neck: Neck: Yes normal visual inspection, Yes full ROM and Yes no lymphadenopathy Chest: Chest palpation & inspection: normal inspection of the chest Resp: Effort & Inspection: normal respiratory effort and able to speak in complete sentences GI: Inspection: Yes normal to inspection Neuro: General: patient oriented x3 and moves all extremities Cranial nerves: Yes Equal, round and reactive pupils present Cognition (Neuro): normal cognition Motor exam (neuro): 5/5 motor strength present throughout Sensory Exam: Normal double simultaneous stimulation for sensation Coordination: [id number] test normal Extrem: General: Yes normal to inspection, Yes full ROM and Yes capillary refill normal Psych: Appearance: grossly normal Mental Status: mental status grossly normal Affect: normal affect Attitude: cooperative Thought process: Normal thought process present Thought content: Normal thought content present Insight: Good insight present (Psych) Medical Decision Making Medical Decision Making MDM Narrative: Patient is a 23 year old assigned female at with a history of depression and substance use presenting to the emergency department today with painful urination and increased urinary frequency. Patient's physical exam was unremarkable. Patient's urine showed a possible infection, given patient's symptoms, will treat. I explained my physical exam findings as well as all test results to the patient. I answered all questions asked by the patient. I stressed the importance of the patient taking her medication as prescribed. I s tressed the importance of the patient following up with her primary care provider. I stressed the importance of the patient returning to the emergency department immediately if her symptoms were to worsen or if she were to develop any dizziness, shortness of breath, difficulty breathing, chest pain, blurry vision, loss of vision, nausea, vomiting, abdominal pain, fever, chills, back pain, or any other complaints. Patient verbalized agreement and understanding with this treatment plan and discharge. Differential Diagnosis Differential Diagnoses: The differential diagnosis associated with the presentation includes UTI Admission/Observation Consideration of admission/observation: Escalation of care including admission/observation considered Patient would have been admitted to the hospital had her work up had any findings where hospital admission was appropriate and her clinical presentation warranted hospital admission. Lab Data [facility] Lab Attestation statement: I reviewed the patient's lab results. My interpretation of these results are in the [facility] Rationale portion of this note. Labs: Lab Results 07/01/23 07/01/23 Range/Units 10:45 12:25 Urine Color [place] Urine Appearance Clear Urine pH 5.0 (5.0-9.0) Ur Specific [place] 1.025 (1.005-1.025) Urine Protein 100 (2+) H (Neg-Trace) mg/dL Urine Glucose (UA) 250 H (Negative) mg/dL Urine Ketones Trace (Negative) mg/dL Urine Blood Negative (Negative) Urine Nitrite Positive H (Negative) Ur Leukocyte Esterase Trace H (Negative) Urine RBC 6-10 H (0-2) /HPF Urine WBC 0-5 (0-5) /HPF Ur Squamous Epith Cells 3-5 (0-2) /HPF Urine Bacteria None Seen (None Seen) Hyaline Casts 0-2 (0-2) /LPF Urine Test NEGATIVE (NEGATIVE) Chlam trachomat DNA PCR NOT DETECTED (Not Detect.) N.gonorrhoeae DNA (PCR) NOT DETECTED (Not Detect.) Prescription Management I considered prescription management with: Antibiotic (patient prescribed antibiotic for possible UTI) Discharge Plan Discharge Clinical Impression: Urinary tract infection Patient Disposition: Home, Self-Care Instructions: Urinary Tract Infection in Women (DC) Additional Instructions: Follow up with your primary care provider. Return to the emergency department immediately if your symptoms worsen or if you develop any dizziness, shortness of breath, difficulty breathing, chest pain, blurry vision, loss of vision, nausea, vomiting, abdominal pain, fever, chills, back pain, or any other complaints. Prescriptions: New cefuroxime axetil 250 mg tablet 250 mg PO BID 7 Days Qty: 14 0RF No Action quetiapine [Seroquel] 300 mg tablet 300 mg PO BEDTIME oxcarbazepine [Trileptal] 600 mg tablet 600 mg PO BEDTIME Referrals: Yonis Steward PA-C [Primary Care Provider] - Interventions: ED Discharge Assessment Last Done: 07/01/23 12:59 Discharge Date/Time: 07/01/23 12:59 Print Language: Pashto
--- OUTSIDE RECORDS SUMMARY | 2023-07-01 10:38 | XMS_ITS | Continuity of Care Document ---
Author Name Unknown Organization [email or web address] Address [address] [place] [address]- Care Team Providers Care Costume Maker Name Role Phone Saurav NANCE, Lisa Domingo Primary Care Physician [phone] Encounter [facility] NBR [id number] Date(s): 05/27/22 - 06/26/22 [email or web address] [address] [place] [id number] [place] Allergies, Adverse Reactions, Alerts Substance Reaction Severity Status Glutens 1 Active Lactose 2 Active Egg Allergy 3 Active 1acne 2acne 3acne Medications OXcarbazepine 600 mg oral tablet 1 tablet = 600 mg, By Mouth, 2 times a day, # 60 tablet, 0 Refills, Maintenance, 05/27/22 9:28:00 EDT, Tablet, Partial fill upon patient request if the prescription is for a schedule II opioid drug. Start Date: 05/27/22 Status: Ordered SEROquel 200 mg oral tablet 200 mg, 1, tablet, By Mouth, Daily at bedtime, take 1 tablet by mouth daily at bedtime, # 30 tablet, Refills 0, Tot. Refills 0, Maintenance, 06/09/20 9:58:00 EST, Print Requisition Start Date: 06/09/20 Stop Date: 07/09/20 Status: Ordered Sublocade 100 mg/0.5 mL subcutaneous solution, extended release = 100 mg, Subcutaneous Infusion, Every 28 days, Prescribed by [facility] suboxone [facility], # 1 each, 0 Refills, Maintenance, 05/27/22 11:42:00 EDT, Partial fill upon patient request if the prescription is for a schedule II opioid drug. Start Date: 05/27/22 Stop Date: 06/26/22 Status: Ordered Problem List Condition Confirmation Course Effective Dates Status Health St atus Informant Childhood absence epilepsy Confirmed Stable Active Hx of substance abuse Confirmed Active Depression, major, in partial remission Confirmed Active Underweight Confirmed Active Social History Social History Type Response Smoking Status Former smoker; Type: Cigarettes entered on: 07/30/17 Sex Patient Care team information Care Team Personnel Name: Lisa Mg MD Position: [facility] Primary Care Physician Member Role: PCP Address: Address: [address] [place], [place] [address] [address]- Name: Jina Hi RN Position: [facility] RN Member Role: Primary Care Nurse Name: Prosper Pacheco RN Position: [facility] RN Member Role: Primary Care Nurse Name: Dasha Le RN Position: [facility] RN Member Role: Primary Care Nurse Name: Cee Parikh RN Position: [facility] RN Member Role: Primary Care Nurse Name: Mala Tilley RN Position: [facility] RN Member Role: Primary Care Nurse Care Team Related Persons Name: CHRISTINATanyaGWENDOLYN Address: [address] [address] Name: BENNY BENITEZ Address: [address] [address]
--- OUTSIDE RECORDS SUMMARY | 2023-07-01 10:38 | XMS_ITS | Continuity of Care Document ---
Author Name Unknown Organization [facility] Address [address] [place] [id number]- Care Team Providers Care Agricultural Inspector Name Role Phone Avery NANCE, Suellen Hogue Primary Care Physician Encounter [facility] Date(s): 06/10/21 - 06/10/[address] [address]- Discharge Disposition: A-D/C Home Attending Physician: Dakota Rojas DO Admitting Physician: Dakota Rojas DO Referring Physician: Not on Staff, Referring MD Allergies, Adverse Reactions, Alerts Substance Reaction Severity Status Glutens 1 Active Lactose 2 Active Egg Allergy 3 Active 1acne 2acne 3acne Medications cloNIDine 0.1 mg oral tablet 0.1 mg, 1, tablet, By Mouth, Daily at bedtime, # 30 tablet, Refills 0, Tot. Refills 0, Maintenance,06/09/20 9:58:00 EST, Print Requisition, Partial fill upon patient request Start Date: 06/09/20 Status: Ordered Effexor XR 150 mg oral capsule, extended release 300 mg, 2, capsule, By Mouth, Daily, take 2 capsules (=300 mg) by mouth daily, # 60 capsule, Refills 0, Tot. Refills 0, Maintenance, 06/09/20 9:58:00 EST, Print Requisition Start Date: 06/09/20 Stop Date: 07/09/20 Status: Ordered lamotrigine 100 mg oral tablet 100 mg, 1, tablet, By Mouth, Daily, taket 1 tablet by mouth daily, # 30 tablet, Refills 0, Tot. Refills 0, Maintenance, 06/09/20 9:58:00 EST, Print Requisition Start Date: 06/09/20 Stop Date: 07/09/20 Status: Ordered SEROquel 200 mg oral tablet 200 mg, 1, tablet, By Mouth, Daily at bedtime, take 1 tablet by mouth daily at bedtime, # 30 tablet, Refills 0, Tot. Refills 0, Maintenance, 06/09/20 9:58:00 EST, Print Requisition Start Date: 06/09/20 Stop Date: 07/09/20 Status: Ordered Problem List Condition Effective Dates Status Health Status Inform ant Childhood absence epilepsy(Confirmed)(Stable) Active Underweight(Confirmed) Active Vital Signs Most recent to oldest [Reference Range]: 1 2 3 Oxygen Saturation [94-100 %] 98 % (06/10/21 1:43 PM) 95 % (06/10/21 10:24 AM) 98 % (06/10/21 8:22 AM) Pulse Rate [55-90 bpm] 84 bpm (06/10/21 1:43 PM) 98 bpm *H* (06/10/21 10:24 AM) 116 bpm *H* (06/10/21 8:22 AM) Blood Pressure [90-138/55-84 mm Hg] 116/75mm Hg (06/10/21 1:43 PM) 95/53mm Hg (06/10/21 10:24 AM) 110/52mm Hg (06/10/21 8:22 AM) Respiratory Rate [16-30 br/min] 19 br/min (06/10/21 1:43 PM) 14 br/min *L* (06/10/21 10:24 AM) 14 br/min *L* (06/10/21 8:22 AM) Temperature [96.8-100.4 DegF] 98.2 DegF (06/10/21 1:43 PM) 98.2 DegF (06/10/21 10:24 AM) 98.3 DegF (06/10/21 8:22 AM) Mode of Delivery (Oxygen) Room air (06/10/21 1:43 PM) Room air (06/10/21 10:24 AM) Room air (06/10/21 8:22 AM) Blood pressure sites Arm, left (06/10/21 10:24 AM) Temperature Route Oral (06/10/21 1:43 PM) Oral (06/10/21 10:24 AM) Oral (06/10/21 8:22 AM) Social History Social History Type Response Smoking Status Never smoker; Tobacc o user in household: No entered on: 09/08/17 Sex
--- OUTSIDE RECORDS SUMMARY | 2023-07-01 10:38 | XMS_ITS | Continuity of Care Document ---
Author Name Unknown Organization [facility] Address [address] [place] [address]- Care Team Providers Care Manager Of Administration Name Role Phone Lisa Mg MD Primary Care Physician [id number] Date(s): 05/23/22 - 05/30/22 [facility] [address] [place] [id number]- Attending Physician: Lisa Mg MD Allergies, Adverse Reactions, Alerts Substance Reaction [...] Subcutaneous Infusion, Every 28 days, Prescribed by [facility] suboxone [facility], # 1 each, 0 Refills, Maintenance, 05/27/22 [...] smoker; Type: Cigarettes entered on: 07/30/17 Sex Note * Berkley Welsh: PERFORM, SIGN, VERIFY Event Display: Patient Education/Instruction Authored Date: [id number] [facility] *BMP [facility] Clinical Summary Name EZRA BENITEZ Age 21 Years 2000 PCP Saurav NANCE, Lisa Domingo PCP Visit Date 05/23/2022 10:45:00 Additional Instructions: Scheduled Appointments?? Future Appointments ?No Future Appointments Scheduled Follow-Up Instructions ?? With: Address: When: Lisa Mg Within 3 months Diagnosis Persons encountering health services in other specified circumstances; Major depressive disorder, single episode, in partial remission; Other psychoactive substance abuse, in remission Medications: Please continue your medications until treatment is completed or stopped by your provider. Discuss any questions related to medications with your provider. Medications to Continue with No Changes These medications were not printed or sent to your pharmacy Clonidine (cloNIDine 0.1 mg oral tablet) 1 tab(s) Oral Daily at Bedtime. Refills: 0. Next Dose: Lamotrigine (lamotrigine 100 mg oral tablet) 1 tab(s) Oral Daily for 30 Days. taket 1 tablet by mouth daily. Refills: 0. Next Dose: Quetiapine (SEROquel 200 mg oral tablet) 1 tab(s) Oral Daily at Bedtime for 30 Days. take 1 tablet by mouth daily at bedtime. Refills: 0. Next Dose: Venlafaxine (Effexor XR 150 mg oral capsule, extended release) 2 capsule Oral Daily for 30 Days. take 2 capsules (=300 mg) by mouth daily. Refills: 0. Next Dose: Allergy Info:?? Egg Allergy; Lactose; Glutens Medications Given This Visit Future Orders ?No future orders Vital Signs Height Weight BMI Blood Pressure / Temperature Pulse Rate Respiratory Rate 02 Sat Mode of Delivery / You can now view a summary of your hospital visit from the comfort of your home through a free online portal called [employer]. [employer] is a website that allows you to securely view your medical information including discharge summary, medications and follow-up visits. ??You can alsosend a secure electronic message to your doctor???s office to request appointments, renew medications or just ask a question. You can enroll at [email or web address] or register during your next office visit. Disclaimer:?? The information provided is of a general nature and is intended to be used in conjunction with the recommendations and advice of your health care practitioner. ??Every effort has been made to ensure that the information provided is accurate and complete at the time it is provided to you however, as your needs change, or, as new ??information becomes available, different or additional instructions may be required. If you have questions, please consult with your primary care provider or pharmacist, as appropriate. ??This information is not intended to serve as substitution for assessment and evaluation by a qualified health care provider. If you do not have a primary care provider, you may find a [facility] provider by calling [facility] [employer] Link at [phone]. For information about the plan of care including goals and instructions for your diagnosis, please see the patient education orders section of this document. Patient Education Materials?? The content of this educational material or handout may have been modified, supplemented, or adapted from its original content and format to support your individualized medical care. Patient Care team information Care Team Personnel Name: Lisa Mg MD Position: [facility] Primary Care Physician Member Role: PCP Address: Address: [address] [place] [address] [facility] [place], [place] [address] Name: Jina Hi RN Position: [facility] RN Member Role: Primary Care Nurse Name: Prosper Pacheco RN Position: [facility] RN Member Role: Primary Care Nurse Name: Dasha Le RN Position: [facility] RN Member Role: Primary Care Nurse Name: Cee Parikh RN Position: [facility] RN Member Role: Primary Care Nurse Name: Mala Tilley RN Position: [facility] RN Member Role: Primary Care Nurse Care Team Related Persons Name: GWENDOLYN BENITEZ Address: [address] [address] Name: BENNY BENITEZ Address: [place] [address] [place] [address]
--- OUTSIDE RECORDS SUMMARY | 2023-07-01 10:38 | XMS_ITS | Continuity of Care Document ---
Author Name Unknown Organization [facility] [employer] [facility] Address [address] [place] [address]- Care Team Providers Care Crew Person Name Role Phone Lisa Mg MD Primary Care Physician [phone] [id number] Date(s): 05/27/22 - 06/03/22 [facility] [employer] Adult Medicine [address] [place] [address]- Attending Physician: Lisa Mg MD Allergies, Adverse [...] Subcutaneous Infusion, Every 28 days, Prescribed by [facility] suboxone [facility], # 1 [...] partial remission Confirmed Active Underweight Confirmed Active Vital Signs Most recent to oldest [Reference Range]: 1 Height 167 cm (05/27/22 9:26 AM) Weight 48.1 kg (05/27/22 9:26 AM) Pulse Rate [55-90 bpm] 86 bpm (05/27/22 9:26 AM) Body Mass Index [18.5-24.99 kg/m2] 17.25 kg/m2 *L* (05/27/22 9:26 AM) Blood Pressure [90-138/55-84 mm Hg] 108/ 62mm Hg (05/27/22 9:26 AM) Temperature [96.8-100.4 DegF] 97.6 DegF (05/27/22 9: AM) Liters per Minute 0 L/min (05/27/22 9:26 AM) Mode of Delivery (Oxygen) Room air (05/27/22 9:26 AM) Blood pressure sites Arm, left (05/27/22 9:26 AM) Temperature Route Temporal (05/27/22 9:26 AM) Weight Obtained Via Standing scale (05/27/22 9:26 AM) Social History Social History Type Response Smoking Status Former smoker; Type: Cigarettes entered on: 07/30/17 Sex Note * Berkley Welsh: PERFORM, SIGN, VERIFY Event Display: Patient Education/Instruction Authored Date: [id number] [facility] *BMP Quab Adlt Med Bltn Clinical Summary Name EZRA BENITEZ Age 21 Years 2000 PCP Saurav NANCE, Lisa Domingo [id number] Visit Date 05/27/2022 09:13:00 Additional Instructions: Scheduled Appointments?? Future Appointments ?*BMP??Quab??Adlt??Med??Bltn ?[address],??[place],??[address] ?Phone:??--?Fax:??-- ?Appt. Date:??08/05/2022?3:45 PM ?Scheduled Provider:??Saurav NANCE, Lisa Domingo Follow-Up Instructions ?? Diagnosis Medications: Please continue your medications until treatment is completed or stopped by your provider. Discuss any questions related to medications with your provider. New Medications These medications were not printed or sent to your pharmacy Buprenorphine (Sublocade 100 mg/0.5 mL subcutaneous solution, extended release) 100 Milligram Subcutaneous Infusion Every 28 days for 30 Days. Prescribed by [facility] suboxone [facility]. Refills: 0. Next Dose: Medications to Continue with No Changes These medications were not printed or sent to your pharmacy Oxcarbazepine (OXcarbazepine 600 mg oral tablet) 1 tab(s) Oral twice a day. Next Dose: Quetiapine (SEROquel 200 mg oral tablet) 1 tab(s) Oral Daily at Bedtime for 30 Days. take 1 tablet by mouth daily at bedtime. Refills: 0. Next Dose: No Longer Take the Following Medications Clonidine (cloNIDine 0.1 mg oral tablet) 1 tab(s) Oral Daily at Bedtime. Refills: 0. Lamotrigine (lamotrigine 100 mg oral tablet) 1 tab(s) Oral Daily for 30 Days. taket 1 tablet by mouth daily. Refills: 0. Venlafaxine (Effexor XR 150 mg oral capsule, extended release) 2 capsule Oral Daily for 30 Days. take 2 capsules (=300 mg) by mouth daily. Refills: 0. Allergy Info:?? Egg Allergy; Lactose; Glutens Medications Given This Visit Future Orders ?No future orders Vital Signs Height 167 cm Weight 48.1 kg BMI 17.25 kg/m2 Blood Pressure 108 mm Hg/62 mm Hg Temperature 97.6 DegF Pulse Rate 86 bpm Respiratory Rate 02 Sat Mode of Delivery /Room air You can now view a summary of your hospital visit from the comfort of your home through a free online portal called [employer]. [employer] is a website that allows you to securely view your medical information including discharge summary, medications and follow-up visits. ??You can alsosend a secure electronic message to your doctor???s office to request appointments, renew medications or just ask a question. You can enroll at [email or web address] or register during your next office [...] primary care provider, you may find a [facility] provider by calling [facility] [employer] at [phone]. For information about the plan of care [...] Team Personnel Name: Lisa Mg MD Position: [facility] Primary Care Physician Member Role: PCP Address: Address: [address] [place] [address] Adult [place], [place] [address] Name: Jina Hi RN Position: S RN Member Role: Primary Care Nurse Name: Prosper Pacheco RN Position: [facility] RN Member Role: Primary Care Nurse Name: Dasha Le RN Position: [facility] RN Member Role: Primary Care Nurse Name: Cee Parikh RN Position: S RN Member Role: Primary Care Nurse Name: Mala Tilley RN Position: S RN Member Role: Primary Care Nurse Care Team Related Persons Name: EUFEMIADANUTAGWENDOLYN ORTIZ Address: [address] [place] [address] Name: CHRISTINATanya BENNY Address: [address] [place] [address]
--- OUTSIDE RECORDS SUMMARY | 2023-07-01 10:38 | XMS_ITS | Continuity of Care Document ---
Author Name Unknown Organization [facility] [employer] Adult [facility] Address [address] [place] [address]- Care Team Providers Care Moss Gatherer Name Role Phone Lisa Mg MD Primary Care Physician [id number] Date[facility] 06/09/22 - 06/16/22 [facility] [employer] Adult Medicine [address] [place] [address]- Attending Physician: Lisa Mg MD Allergies, Adverse [...] Subcutaneous Infusion, Every 28 days, Prescribed by [facility] suboxone [facility], # 1 each, 0 Refills, Maintenance, [...] oldest [Reference Range]: 1 Height 167 cm (06/09/22 2:58 PM) Weight 47 kg (06/09/22 2:58 PM) Pulse Rate [55-90 bpm] 78 bpm (06/09/22 2:58 PM) Body Mass Index [18.5-24.99 kg/m2] 16.85 kg/m2 *L* (06/09/22 2:58 PM) Blood Pressure [90-138/55-84 mm Hg] 100/ 78mm Hg (06/09/22 2:58 PM) Respiratory Rate [16-30 br/min] 18 br/mi n (06/09/22 2:58 PM) Temperature [96.8-100.4 DegF] 98.6 DegF (06/09/22 2:58 PM) Social History Social History Type Response Smoking Status Former smoker; Type: Cigarettes entered on: 07/30/17 Sex Note * Berkley Welsh: PERFORM, SIGN, VERIFY Event Display: Patient Education/Instruction Authored Date: [id number] [facility] *BMP Quab Adlt Med Bltn Clinical Summary Name EZRA BENITEZ Age 21 Years 2000 PCP Lisa Mg MD PCP Visit Date 06/09/2022 14:54:00 Additional Instructions: Scheduled Appointments?? Future Appointments ?*BMP??Quab??Adlt??Med??Bltn ?[address]??[place],??[place],??[address] ?Phone:??--?Fax:??-- ?Appt. Date:??07/15/2022?4:00 PM ?Scheduled Provider:??Lisa Mg MD ?*BMP??Quab??Adlt??Med??Bltn ?[address]??[place],??[place],??[address] ?Phone:??--?Fax:??-- ?Appt. Date:??08/05/2022?3:45 PM ?Scheduled Provider:??Lisa Mg MD Follow-Up Instructions ?? Diagnosis Medications: Please continue [...] 28 days for 30 Days. Prescribed by [facility] suboxone clinic. Refills: 0. Next Dose: Oxcarbazepine (OXcarbazepine 600 mg oral tablet) 1 tab(s) Oral twice a day. Next Dose: Quetiapine (SEROquel 200 mg oral tablet) 1 tab(s) Oral Daily at Bedtime for 30 Days. take 1 tablet by mouth daily at bedtime. Refills: 0. Next Dose: Allergy Info:?? Egg Allergy; Lactose; Glutens Medications Given This Visit Future Orders ?No future orders Vital Signs Height 167 cm Weight 47 kg BMI 16.85 kg/m2 Blood Pressure 100 mm Hg/78 mm Hg Temperature 98.6 DegF Pulse Rate 78 bpm Respiratory Rate 18 br/min 02 Sat Mode of Delivery / You can now view a summary of your hospital visit from the comfort of your home through a free online portal called [employer]. [employer] is a website that allows you to securely view your medical information including discharge summary, medications and follow-up visits. ??You can alsosend a secure electronic message to your doctor???s office to request appointments, renew medications or just ask a question. You can enroll at [email or web address] or register during your next office [...] primary care provider, you may find a [facility] provider by calling [facility] [employer] at [phone]. For information about the plan of care [...] Team Personnel Name: Lisa Mg MD Position: [facility] Primary Care Physician Member Role: PCP Address: Address: [address] [place] [address] [place] [address]- Name: Jina Hi RN Position: S RN Member Role: Primary Care Nurse Name: Prosper Pacheco RN Position: S RN Member Role: Primary Care Nurse Name: Dasha Le RN Position: S RN Member Role: Primary Care Nurse Name: Cee Parikh RN Position: S RN Member Role: Primary Care Nurse Name: Mala Tilley RN Position: [facility] RN Member Role: Primary Care Nurse Care Team Related Persons Name: GWENDOLYN BENITEZ Address: [address] [address] Name: BENNY BENITEZ Address: [address] [address]"
--- OUTSIDE RECORDS SUMMARY | 2023-07-01 10:38 | XMS_ITS | Continuity of Care Document ---
Author Name Unknown Organization [facility] Address [address] [place] [address]- Care Team Providers Care Director Hedis Name Role Phone Avery NANCE, Suellen Hogue Primary Care Physician Encounter [facility] Date(s): 04/23/20 - 04/24/[address] [address]- [facility] Discharge Disposition: Transfer to Psych Facility Attending Physician: Dakota Rojas DO Admitting Physician: Dakota Rojas DO Referring Physician: Not on Staff, Referring MD Allergies, Adverse Reactions, Alerts Substance Reaction Severity Status Glutens 1 Active Lactose 2 Active Egg Allergy 3 Active 1acne 2acne 3acne Medications lamotrigine 100 mg oral tablet 100 mg, 1, tablet, By Mouth, Daily, Refills 0, Maintenance, 04/24/20 12:27:00 EDT Start Date: 04/24/20 Status: Ordered SEROquel 200 mg oral tablet 200 mg, 1, tablet, By Mouth, Daily at bedtime, Refills 0, Maintenance, 04/24/20 12:26:00 EDT Start Date: 04/24/20 Status: Ordered venlafaxine 225 mg oral tablet, extended release 225 mg, 1, tablet, By Mouth, Daily, # 30 tablet, Refills 0, Maintenance, 04/24/20 12:26:00 EDT Start Date: 04/24/20 Status: Ordered Problem List Condition Effective Dates Status Health Status Inform ant Childhood absence epilepsy(Confirmed)(Stable) Active Vital Signs Most recent to oldest [Reference Range]: 1 2 Oxygen Saturation [94-100 %] 100 % (04/23/20 6:17 PM) 100 % (04/23/20 2:52 PM) Pulse Rate [55-90 bpm] 98 bpm *H* (04/23/20 6:17 PM) 110 bpm *H* (04/23/20 2:52 PM) Blood Pressure [90-138/55-84 mm Hg] 122/ 87mm Hg (04/23/20 6:17 PM) 130/79mm Hg (04/23/20 2:52 PM) Respiratory Rate [16-30 br/min] 20 br/mi n (04/23/20 6:17 PM) 24 br/min (04/23/20 2:52 PM) Temperature [96.8-100.4 DegF] 98.5 DegF (04/23/20 2:52 PM) Liters per Minute 0 L/min (04/23/20 2:52 PM) Mode of Delivery (Oxygen) Room air (04/23/20 6:17 PM) Room air (04/23/20 2:52 PM) Blood pressure sites Arm, left (04/23/20 2:52 PM) Temperature Route Oral (04/23/20 2:52 PM) Social History Social History Type Response Smoking Status Never smoker; Tobacc o user in household: No entered on: 09/08/17 Sex
--- OUTSIDE RECORDS SUMMARY | 2023-07-01 10:38 | XMS_ITS | Continuity of Care Document ---
Author Name Unknown Organization [facility] Address [address] [place] [address]- Care Team Providers Care Community Associate Name Role Phone Avery NANCE, Suellen Hogue Primary Care Physician [phone] [facility] Date(s): 06/09/21 - 06/09/[address] [address]- Encounter Diagnosis Opioid overdose(Final) - 06/09/21 Discharge Disposition: A-D/C Home Attending Physician: Arturo Ellis MD Admitting Physician: Arturo Ellis MD Referring Physician: Not on Staff, Referring MD [...] recent to oldest [Reference Range]: 1 2 Height 167 cm (06/09/21 5:45 PM) 167 cm (06/09/21 2:40 PM) Weight 50 kg (06/09/21 5:45 PM) 50 kg (06/09/21 2:40 PM) Oxygen Saturation [94-100 %] 98 % (06/09/21 5:45 PM) 96 % (06/09/21 2:40 PM) Pulse Rate [55-90 bpm] 98 bpm *H* (06/09/21 5:45 PM) 115 bpm *H* (06/09/21 2:40 PM) Body Mass Index [18.5-24.99] 17.93 *L* (06/09/21 5:45 PM) Blood Pressure [90-138/55-84 mm Hg] 108/ 76mm Hg (06/09/21 5:45 PM) 136/88mm Hg (06/09/21 2:40 PM) Respiratory Rate [16-30 br/min] 16 br/mi n (06/09/21 5:45 PM) 18 br/min (06/09/21 2:40 PM) Temperature [96.8-100.4 DegF] 97.7 DegF (06/09/21 5:45 PM) 98.3 DegF (06/09/21 2:40 PM) Mode of Delivery (Oxygen) Room air (06/09/21 5:45 PM) Room air (06/09/21 2:40 PM) Blood pressure sites Arm, right (06/09/21 5:45 PM) Arm, right (06/09/21 2:40 PM) Temperature Route Oral (06/09/21 5:45 PM) Oral (06/09/21 2:40 PM) Weight Obtained Via Patient/family state d (06/09/21 2:40 PM) Social History Social History Type Response Smoking Status Never smoker; Tobacc o user in household: No entered on: 09/08/17 Sex
--- OUTSIDE RECORDS SUMMARY | 2023-07-01 10:38 | XMS_ITS | Continuity of Care Document ---
Author Name Unknown Organization [facility] Address [address] [place] [address]- Care Team Providers Care Building Principal Name Role Phone Avery NANCE, Suellen Hogue Primary Care Physician Encounter [facility] Date(s): 03/23/21 - 03/23/[address] [address]- Encounter Diagnosis Intoxication by drug(Final) - 03/23/21 Discharge Disposition: A-D/C Home Attending Physician: Peyton Neal MD Admitting Physician: Peyton Neal MD Referring Physician: Not on Staff, Referring [...] 2 Oxygen Saturation [94-100 %] 100 % (03/23/21 1:15 PM) 100 % (03/23/21 11:41 AM) Pulse Rate [55-90 bpm] 88 bpm (03/23/21 1:15 PM) 88 bpm (03/23/21 11:41 AM) Blood Pressure [90-138/55-84 mm Hg] 118/ 71mm Hg (03/23/21 1:15 PM) 117/72mm Hg (03/23/21 11:41 AM) Respiratory Rate [16-30 br/min] 19 br/mi n (03/23/21 1:15 PM) 18 br/min (03/23/21 11:41 AM) Temperature [96.8-100.4 DegF] 98.0 DegF (03/23/21 1:15 PM) 98.0 DegF (03/23/21 11:41 AM) Mode of Delivery (Oxygen) Room air (03/23/21 1:15 PM) Room air (03/23/21 11:41 AM) Blood pressure sites Arm, right (03/23/21 1:15 PM) Arm, right (03/23/21 11:41 AM) Temperature Route Oral (03/23/21 1:15 PM) Oral (03/23/21 11:41 AM) Social History Social History Type Response Smoking Status Never smoker; Tobacc o user in household: No entered on: 09/08/17 Sex
--- OUTSIDE RECORDS SUMMARY | 2023-07-01 10:38 | XMS_ITS | Continuity of Care Document ---
Author Name Unknown Organization [facility] Address [address] [place] [address]- Care Team Providers Care Process Control Board Operator Name Role Phone Lisa Mg MD Primary Care Physician Encounter [facility] Date(s): 08/05/22 - 10/07/22 [facility] Adult Medicine [address] [place] [address]- Attending Physician: Lisa Mg MD Allergies, Adverse Reactions, Alerts Substance Reaction Severity Status Glutens 1 Active Lactose 2 Active Egg Allergy 3 Active 1acne 2acne 3acne Immunizations Given and Recorded Vaccine Date Status Refusal Reason meningococcal group B vaccine 06/07/19 Recorded Meningococcal Conjugate Vaccine 06/07/19 Recorded Measles/Mumps/Rubella Virus Vaccine 01/19/17 Recor ded influenza virus vaccine, live 07/09/15 Recorded Human Papillomavirus Vaccine 01/09/15 Recorded Hepatitis A Pediatric Vaccine 01/09/15 Recorded Medications OXcarbazepine 600 mg oral tablet 1 tablet = 600 mg, By Mouth, Daily at bedtime, # 60 tablet, 0 Refills, Maintenance, 05/27/22 9:28:00 EDT, Tablet, Partial fill upon patient request if the prescription is for a schedule II opioid drug. Start Date: 05/27/22 Status: Ordered SEROquel 300 mg oral tablet 1 tablet = 300 mg, By Mouth, Daily, # 30 tablet, 0 Refills, Maintenance, 08/05/22 16:00:00 EST, Partial fill upon patient request if the prescription is for a schedule II opioid drug. Start Date: 08/05/22 Status: Ordered Sublocade 100 mg/0.5 mL subcutaneous solution, extended release = 100 mg, Subcutaneous Infusion, Every 28 days, Prescribed by [facility] suboxone [facility], # 1 each, 0 Refills, Maintenance, 05/27/22 [...] Name: Lisa Mg MD Position: [facility] Primary Care Physician Member Role: PCP Address: Address: [address] [place] [address] [place] [address]- Name: Jina Hi RN Position: [facility] RN Member Role: Primary Care Nurse Name: Prosper Pacheco RN Position: [facility] RN Member Role: Primary Care Nurse Name: Dasha Le RN Position: [facility] RN Member Role: Primary Care Nurse Name: Cee Parikh RN Position: [facility] RN Member Role: Primary Care Nurse Name: Mala Tilley RN Position: [facility] RN Member Role: Primary Care Nurse Care Team Related Persons Name: GWENDOLYN BENITEZ Address: [address] [place] [address] Name: BENNY BENITEZ Address: [address] [place] [address]
--- OUTSIDE RECORDS SUMMARY | 2023-07-01 10:38 | XMS_ITS | Continuity of Care Document ---
Author Name Unknown Organization [facility] [place] [facility] Address [address] [place] [address]- Care Team Providers Care Tool Repairer Name Role Phone Lisa Mg MD Primary Care Physician [phone] Encounter [facility] Date(s): 10/13/22 - 12/24/22 [facility] Adult Medicine [address] [place] [address]- Attending Physician: Lisa Mg MD Allergies, Adverse [...] Subcutaneous Infusion, Every 28 days, Prescribed by [facility] suboxone [facility], # 1 each, 0 Refills, Maintenance, [...] Team Personnel Name: Lisa Mg MD Position: [facility] Physician - Primary Care Member Role: PCP Address: Address: [address] [place] [address] [place] [address]- Name: Jina Hi RN Position: [facility] RN Member Role: Primary Care Nurse Name: Prosper Pacheco RN Position: [facility] RN Member Role: Primary Care Nurse Name: Dasha Le RN Position: [facility] RN Member Role: Primary Care Nurse Name: Cee Parikh RN Position: [facility] RN Member Role: Primary Care Nurse Care Team Related Persons Name: GWENDOLYN BENITEZ Address: [address] [place] [address] Name: BENNY BENITEZ Address: [address] [place] [address]
--- OUTSIDE RECORDS SUMMARY | 2023-07-01 10:38 | XMS_ITS | Continuity of Care Document ---
Author Name Unknown Organization [facility] [place] [facility] Address [address] [place] [address]- Care Team Providers Care Junior Marketing Associate Name Role Phone Lisa Mg MD Primary Care Physician Encounter [facility] Date(s): 12/20/22 - 02/05/23 [facility] Adult Medicine [address] [place] [address]- Attending Physician: Lisa Mg MD Allergies, Adverse [...] Subcutaneous Infusion, Every 28 days, Prescribed by [facility] suboxone [facility], # 1 each, 0 Refills, [...] Team Personnel Name: Lisa Mg MD [facility] Physician - Primary Care Member Role: PCP Address: Address: [address] [place] [address] [place] [address]- Name: Jina Hi RN [facility] RN Member Role: Primary Care Nurse Name: Prosper Pacheco RN [facility] RN Member Role: Primary Care Nurse Name: Dasha Le RN Position: S RN Member Role: Primary Care Nurse Name: Cee Parikh RN [facility] RN Member Role: Primary Care Nurse Care Team Related Persons Name: GWENDOLYN BENITEZ Address: [address] [place] [address] Name: BENNY BENITEZ Address: [address] [place] [address]
--- OUTSIDE RECORDS SUMMARY | 2023-07-01 10:38 | XMS_ITS | Continuity of Care Document ---
Author Name Unknown Organization [facility] [place] [facility] Address [address] [place] [address]- Care Team Providers Care Sales Representative Publications Name Role Phone Saurav NANCE, iLsa Domingo Primary Care Physician Encounter [facility] Date(s): 01/06/23 - 02/05/23 [facility] Adult Medicine [address] [place] [address]- Attending Physician: Brit Díaz Admitting Physician: AdmBrit rodriguez Referring Physician: AdmtrBrit Allergies, Adverse Reactions, Alerts Substance Reaction Severity [...] Subcutaneous Infusion, Every 28 days, Prescribed by [facility] suboxone [facility], # 1 each, 0 Refills, Maintenance, [...] Care team information Care Team Personnel Name: Saurav NANCE, Lisa Domingo Position: [facility] Physician - Primary Care Member Role: PCP Address: Address: [address] [place] [address] [place] [address]- Name: Jina Hi RN Position: [facility] RN Member Role: Primary Care Nurse Name: Prosper Pacheco RN Position: S RN Member Role: Primary Care Nurse Name: Dasha Le RN Position: S RN Member Role: Primary Care Nurse Name: Cee Parikh RN Position: S RN Member Role: Primary Care Nurse Care Team Related Persons Name: GWENDOLYN BENITEZ Address: [address] [place] [address] Name: BENNY BENITEZ Address: [address] [place] [address]
--- OUTSIDE RECORDS SUMMARY | 2023-07-01 10:38 | XMS_ITS | Continuity of Care Document ---
Author Name Unknown Organization [facility] [place] [facility] Address [address] [place] [address]- Care Team Providers Care Camp Program Director Name Role Phone Saurav NANCE, Lisa Domingo Primary Care Physician [id number] Date(s): 10/26/22 - [facility]27[facility] [address] [place] [address]- Attending Physician: Not on Staff, Attending MD Allergies, Adverse Reactions, Alerts Substance Reaction [...] Infusion, Every 28 days, Prescribed by [facility] suboxone [facility], # 1 each, 0 Refills, Maintenance, [...] Team Personnel Name: Lisa Mg MD Position: [facility] Primary Care Physician Member Role: PCP Address: Address: [address] [place] [address] [place] [address]- Name: Jina Hi RN Position: [facility] RN Member Role: Primary Care Nurse Name: Prosper Pacheco RN Position: [facility] RN Member Role: Primary Care Nurse Name: Dasha Le RN Position: [facility] RN Member Role: Primary Care Nurse Name: Cee Parikh RN Position: [facility] RN Member Role: Primary Care Nurse Care Team Related Persons Name: GWENDOLYN BENITEZ Address: [address] [place] [address] Name: BENNY BENITEZ Address: [address] [place] [address]
--- OUTSIDE RECORDS SUMMARY | 2023-07-01 10:38 | XMS_ITS | Continuity of Care Document ---
Author Name Unknown Organization [facility] Address [address] [place] [address]- Care Team Providers Care Buildings Painter Name Role Phone Lisa Mg MD Primary Care Physician Encounter [facility] Date(s): 10/25/22 - 11/24/22 [facility] [address] [place] [id number]- [place] Allergies, Adverse Reactions, Alerts Substance Reaction [...] Subcutaneous Infusion, Every 28 days, Prescribed by [facility] suboxone [facility], # 1 each, 0 Refills, Maintenance, [...] Team Personnel Name: Lisa Mg MD Position: [facility] Primary Care Physician Member Role: PCP Address: Address: [address] [place] [address] Adult [place], [place] [address] Name: Jina Hi RN Position: [facility] RN Member Role: Primary Care Nurse Name: Prosper Pacheco RN Position: [facility] RN Member Role: Primary Care Nurse Name: Dasha Le RN Position: [facility] RN Member Role: Primary Care Nurse Name: Cee Parikh RN Position: [facility] RN Member Role: Primary Care Nurse Care Team Related Persons Name: GWENDOLYN BENITEZ Address: [address] [place] [address] Name: BENNY BENITEZ Address: [address] [place] [address]
--- OUTSIDE RECORDS SUMMARY | 2023-07-01 10:38 | XMS_ITS | Continuity of Care Document ---
Author Name Unknown Organization [facility] Address [address] [place] [address]- Care Team Providers Care Packing Machine Operator Name Role Phone Avery NANCE, Suellen Hogue Primary Care Physician Encounter [facility] Date(s): 11/15/21 - 11/16/[address] [address]- Discharge Disposition: A-D/C Walkout Attending Physician: Not on Staff, Attending MD Admitting Physician: Not on Staff, Admitting MD Referring Physician: Not on Staff, Referring [...] Range]: 1 2 Oxygen Saturation [94-100 %] 95 % (11/16/21 12:13 AM) 94 % (11/15/21 10:29 PM) Pulse Rate [55-90 bpm] 98 bpm *H* (11/16/21 12:13 AM) 110 bpm *H* (11/15/21 10:29 PM) Blood Pressure [90-138/55-84 mm Hg] 106/ 63mm Hg (11/16/21 12:13 AM) 112/67mm Hg (11/15/21 10:29 PM) Respiratory Rate [16-30 br/min] 16 br/mi n (11/16/21 12:13 AM) 16 br/min (11/15/21 10:29 PM) Temperature [96.8-100.4 DegF] 98.1 DegF (11/15/21 10:29 PM) Mode of Delivery (Oxygen) Room air (11/16/21 12:13 AM) Room air (11/15/21 10:29 PM) Blood pressure sites Arm, right (11/16/21 12:13 AM) Arm, right (11/15/21 10:29 PM) Temperature Route Oral (11/15/21 10:29 PM) Social History Social History Type Response Smoking Status Never smoker; Tobacc o user in household: No entered on: 09/08/17 Sex
--- OUTSIDE RECORDS SUMMARY | 2023-07-01 10:38 | XMS_ITS | Continuity of Care Document ---
Author Name Unknown [facility] Address [address] [place] [address]- Care Team Providers Care Exam Proctor Name Role Phone Lisa Mg MD Primary Care Physician Encounter [facility] Date(s): 10/13/22 - 10/20/22 [facility] [address] [place] [address]- Attending Physician: Lisa Mg MD Allergies, Adverse [...] Subcutaneous Infusion, Every 28 days, Prescribed by [facility] suboxone [facility], # 1 each, 0 Refills, Maintenance, [...] oldest [Reference Range]: 1 Height 167 cm (10/13/22 12:44 PM) Weight 47.7 kg (10/13/22 12:44 PM) Oxygen Saturation [94-100 %] 98 % (10/13/22 12:44 PM) Pulse Rate [55-90 bpm] 84 bpm (10/13/22 12:44 PM) Body Mass Index [18.5-24.99 kg/m2] 17.1 kg/m2 *L* (10/13/22 12:44 PM) Blood Pressure [90-138/55-84 mm Hg] 118/ 62mm Hg (10/13/22 12:44 PM) Temperature [96.8-100.4 DegF] 98.1 DegF (10/13/22 12:44 PM) Liters per Minute 0 L/min (10/13/22 12:44 PM) Mode of Delivery (Oxygen) Room air (10/13/22 12:44 PM) Blood pressure sites Arm, right (10/13/22 12:44 PM) Temperature Route Temporal (10/13/22 12:44 PM) Weight Obtained Via Standing scale (10/13/22 12:44 PM) Social History Social History Type Response Smoking Status Former smoker; Type: Cigarettes entered on: 07/30/17 Sex Note * Milvia High: PERFORM, SIGN, VERIFY Event Display: Patient Education/Instruction Authored Date: [id number] [facility] *BMP Quab Adlt Med Bltn Clinical Summary Name EZRA BENITEZ Age 22 Years 2000 PCP Saurav NANCE, Lisa Domingo PCP Visit Date 10/13/2022 12:40:00 Additional Instructions: Scheduled Appointments?? Future Appointments ?*BMP??Quab??Adlt??Med??Bltn ?[address],??[place],??[address] ?Phone:??--?Fax:??-- ?Appt. Date:??11/24/2022?12:45 PM ?Scheduled Provider:??Saurav NANCE, Lisa Domingo Follow-Up [...] 28 days for 30 Days. Prescribed by [facility] suboxone [facility]. Refills: 0. Next Dose: Oxcarbazepine (OXcarbazepine 600 mg oral tablet) 1 tab(s) Oral Daily at Bedtime. Next Dose: Quetiapine (SEROquel 300 mg oral tablet) 1 tab(s) Oral Daily. Refills: 0. Next Dose: Allergy Info:?? Egg Allergy; Lactose; Glutens Medications Given This Visit Future Orders ?No future orders Vital Signs Height 167 cm Weight 47.7 kg BMI 17.1 kg/m2 Blood Pressure 118 mm Hg/62 mm Hg Temperature 98.1 DegF Pulse Rate 84 bpm Respiratory Rate 02 Sat Mode of Delivery 98 %/Room air You can now view a summary of your hospital visit from the comfort of your home through a free online portal called [employer]. [employer] is a website that allows you to securely view your medical information including discharge summary, medications and follow-up visits. ??You can alsosend a secure electronic message to your doctor???s office to request appointments, renew medications or just ask a question. You can enroll at [email or web address] or register during your next office visit. [...] primary care provider, you may find a [facility] provider by calling [facility] [employer] Link at [phone]. For information about the plan of care [...] Physician Member Role: PCP Address: Address: [address] [place] [address] Adult [place], [place] [address] Name: Jina Hi RN Position: [facility] [...] Care Nurse Care Team Related Persons Name: ELI GWENDOLYN Address: [address] [address] Name: BENNY BENITEZ Address: [address] [place] [address]
--- OUTSIDE RECORDS SUMMARY | 2023-07-01 10:39 | XMS_ITS | Continuity of Care Document ---
Author Name Unknown Organization [facility] Address [address] [place] [address]- Care Team Providers Care Psychology Fellow Name Role Phone Lisa Mg MD Primary Care Physician Encounter [facility] Date(s): 04/26/22 - 05/26/22 [facility] [address] [place], [place] [id number]- [place] Allergies, Adverse Reactions, Alerts Substance Reaction [...] Date: 07/09/20 Status: Ordered Problem List Condition Confirmation Course Effective Dates Status Health St atus Informant Childhood absence epilepsy Confirmed Stable Active Hx of substance abuse Confirmed Active Depression, major, in partial remission Confirmed Active Underweight Confirmed Active Social History Social History Type Response Smoking Status Never smoker; Tobacc o user in household: No entered on: 09/08/17 Sex Patient Care team information Personnel Name: Saurav NANCE, Lisa Domingo Address: Address: [address] [place] [address] Adult [place], [place] [address]
--- OUTSIDE RECORDS SUMMARY | 2023-07-01 10:39 | XMS_ITS | Continuity of Care Document ---
Author Name Unknown Organization [facility] Address [address] [place] [address]- Care Team Providers Care Director Of Mobile Marketing Name Role Phone Lisa Mg MD Primary Care Physician Encounter [facility] Date(s): 07/15/22 - 07/22/22 [facility] [address] [address]- Attending Physician: Lisa Mg MD Allergies, Adverse [...] Subcutaneous Infusion, Every 28 days, Prescribed by [facility] suboxone [facility], # 1 each, 0 Refills, Maintenance, [...] oldest [Reference Range]: 1 Height 167 cm (07/15/22 3:54 PM) Weight 47.5 kg (07/15/22 3:54 PM) Oxygen Saturation [94-100 %] 99 % (07/15/22 3:54 PM) Pulse Rate [55-90 bpm] 63 bpm (07/15/22 3:54 PM) Body Mass Index [18.5-24.99 kg/m2] 17.03 kg/m2 *L* (07/15/22 3:54 PM) Blood Pressure [90-138/55-84 mm Hg] 124/ 68mm Hg (07/15/22 3:54 PM) Temperature [96.8-100.4 DegF] 98.0 DegF (07/15/22 3:54 PM) Liters per Minute 0 L/min (07/15/22 3:54 PM) Mode of Delivery (Oxygen) Room air (07/15/22 3:54 PM) Blood pressure sites Arm, right (07/15/22 3:54 PM) Temperature Route Temporal (07/15/22 3:54 PM) Weight Obtained Via Standing scale (07/15/22 3:54 PM) Social History Social History Type Response Smoking Status Former smoker; Type: Cigarettes entered on: 07/30/17 Sex Note * Berkley Welsh: PERFORM, SIGN, VERIFY Event Display: Patient Education/Instruction Authored Date: [id number] [facility] *BMP Quab Adlt Med Bltn Clinical Summary Name EZRA BENITEZ Age 22 Years 2000 PCP Lisa Mg MD PCP Visit Date 07/15/2022 15:51:00 Additional Instructions: Scheduled Appointments?? Future Appointments ?*BMP??Quab??Adlt??Med??Bltn ?[address],??[place],??[address] ?Phone:??--?Fax:??-- ?Appt. Date:??08/05/2022?3:45 PM ?Scheduled Provider:??Saurav NANCE, [...] 28 days for 30 Days. Prescribed by [facility] suboxone clinic. Refills: 0. Next Dose: [...] orders Vital Signs Height 167 cm Weight 47.5 kg BMI 17.03 kg/m2 Blood Pressure 124 mm Hg/68 mm Hg Temperature 98.0 DegF Pulse Rate 63 bpm Respiratory Rate 02 Sat Mode of Delivery 99 %/Room air You can now view a summary of your hospital visit from the comfort of your home through a free online portal called [employer]. [employer] is a website that allows you to securely view your medical information including discharge summary, medications and follow-up visits. ??You can alsosend a secure electronic message to your doctor???s office to request appointments, renew medications or just ask a question. You can enroll at [email or web address] or register during your next office [...] primary care provider, you may find a [facility] provider by calling [facility] Impact Link at [phone]. For information about the plan of care [...] Team Personnel Name: Lisa Mg MD Position: [facility] Primary Care Physician Member Role: PCP Address: Address: [address] [place] [address]- Name: Jina Hi RN Position: S RN [...] Persons Name: GWENDOLYN BENITEZ Address: [address] [place] [address] Name: BENNY BENITEZ Address: [address] [place] [address]
--- OUTSIDE RECORDS SUMMARY | 2023-07-01 10:39 | XMS_ITS | Continuity of Care Document ---
Author Name Unknown Organization [facility] Address [address] [place] [address]- Care Team Providers Care Scholarship Counselor Name Role Phone Lisa Mg MD Primary Care Physician [phone] [id number] Date(s): 08/05/22 - 08/12/22 [facility] [address] [place] [address]- Attending Physician: Lisa Mg MD Allergies, Adverse [...] Subcutaneous Infusion, Every 28 days, Prescribed by [facility] suboxone [facility], # 1 each, 0 Refills, Maintenance, 05/27/22 [...] oldest [Reference Range]: 1 Height 167 cm (08/05/22 3:48 PM) Weight 48.2 kg (08/05/22 3:48 PM) Oxygen Saturation [94-100 %] 99 % (08/05/22 3:48 PM) Pulse Rate [55-90 bpm] 66 bpm (08/05/22 3:48 PM) Body Mass Index [18.5-24.99 kg/m2] 17.28 kg/m2 *L* (08/05/22 3:48 PM) Blood Pressure [90-138/55-84 mm Hg] 114/ 62mm Hg (08/05/22 3:48 PM) Temperature [96.8-100.4 DegF] 97.8 DegF (08/05/22 3:48 PM) Liters per Minute 0 L/min (08/05/22 3:48 PM) Mode of Delivery (Oxygen) Room air (08/05/22 3:48 PM) Blood pressure sites Arm, left (08/05/22 3:48 PM) Temperature Route Temporal (08/05/22 3:48 PM) Weight Obtained Via Standing scale (08/05/22 3:48 PM) Social History Social History Type Response Smoking Status Former smoker; Type: Cigarettes entered on: 07/30/17 Sex Note * Berkley Welsh: PERFORM, SIGN, VERIFY Event Display: Patient Education/Instruction Authored Date: [id number] [facility] *BMP Quab Adlt Med Bltn Clinical Summary Name EZRA BENITEZ Age 22 Years 2000 PCP Lisa Mg MD PCP Visit Date 08/05/2022 15:40:00 Additional Instructions: Scheduled Appointments?? Future Appointments ?*BMP??Quab??Adlt??Med??Bltn ?[address],??[place],??[address] ?Phone:??--?Fax:??-- ?Appt. Date:??09/07/2022?3:45 PM ?Scheduled Provider:??Saurav NANCE, Lisa Domingo Follow-Up Instructions ?? With: Address: When: Lisa Mg , only if needed Diagnosis Medications: Please continue your medications until treatment is completed or stopped by your provider. Discuss any questions related to medications with your provider. New Medications These medications were not printed or sent to your pharmacy Quetiapine (SEROquel 300 mg oral tablet) 1 tab(s) Oral Daily. Refills: 0. Next Dose: Medications to Continue Taking That Have Changed These medications were not printed or sent to your pharmacy - Oxcarbazepine (OXcarbazepine 600 mg oral tablet) 1 tab(s) Oral Daily at Bedtime. Next Dose: Medications to Continue with No Changes These medications were not printed or sent to your pharmacy Buprenorphine (Sublocade 100 mg/0.5 mL subcutaneous solution, extended release) 100 Milligram Subcutaneous Infusion Every 28 days for 30 Days. Prescribed by [facility] suboxone clinic. Refills: 0. Next Dose: Allergy Info:?? Egg Allergy; Lactose; Glutens Medications Given This Visit Future Orders ?No future orders Vital Signs Height 167 cm Weight 48.2 kg BMI 17.28 kg/m2 Blood Pressure 114 mm Hg/62 mm Hg Temperature 97.8 DegF Pulse Rate 66 bpm Respiratory Rate 02 Sat Mode of Delivery 99 %/Room air You can now view a summary of your hospital visit from the comfort of your home through a free online portal called [employer]. [employer] is a website that allows you to securely view your medical information including discharge summary, medications and follow-up visits. ??You can alsosend a secure electronic message to your doctor???s office to request appointments, renew medications or just ask a question. You can enroll at [email or web address] or register during your next office [...] primary care provider, you may find a [facility] provider by calling [facility] [employer] Link at [phone]. For information about the plan of care [...] Team Personnel Name: Lisa Mg MD Position: [facility] Primary Care Physician Member Role: PCP Address: Address: [address] [place] [address]- Name: Jina Hi RN Position: S RN Member Role: Primary Care Nurse Name: Prosper Pacheco RN Position: S RN Member Role: Primary Care Nurse Name: Dasha Le RN Position: S RN Member Role: Primary Care Nurse Name: Cee Parikh RN Position: S RN Member Role: Primary Care Nurse Name: Mala Tilley RN Position: Lex RN Member Role: Primary Care Nurse Care Team Related Persons Name: GWENDOLYN BENITEZ Address: [address] [place] [address] Name: BENNY BENITEZ Address: [address] [place] [address]
[2023-07-01 12:33] LABS: Appearance Urine Clear; Glucose Urine UA 250 mg/dL (Negative); Leukocyte Esterase Urine Trace (Negative); Nitrite Urine Positive (Negative); Specific Gravity - Urine 1.025 (1.005-1.025); UMIC TRIGGER UACC YES; Urine Blood Negative (Negative); Urine Ketones Trace mg/dL (Negative); Urine Protein 100 (2+) mg/dL (Neg-Trace)
[2023-07-01 12:38] LABS: UPreg QC Valid YES; Urine Pregnancy NEGATIVE (NEGATIVE)
[2023-07-01 12:39] LABS: Color Urine Orange
[2023-07-01 12:41] LABS: Bacteria Urine None Seen (None Seen); Hyaline Casts Urine 0-2 /LPF (0-2); UACC Culture Trigger YES; WBC Urine 0-5 /HPF (0-5)
[2023-07-01 12:47] LABS: CT PCR NOT DETECTED (Not Detect.); NG PCR NOT DETECTED (Not Detect.)
== END 2023-07-01 12:59 | disposition home or self-care (01) ==
PROVIDERS: Physician Assistant Medical; Emergency Provider Emergency Medicine Emergency Medical Services; PCP Physician Assistant
DX: N39.0 Urinary tract infection, site not specified (principal); Z72.89 Other problems related to lifestyle
CPT/HCPCS: 0353U; 81001; 81025; 87086; 99282

== ENCOUNTER 2023-07-06 10:37 | Outpatient (AMB) | payer OTHER, SELFPAY ==
[2023-07-06 10:40] VITALS: BP 100/50; PULSE 60; RESP 16; BMI 18.1
--- NOTE | 2023-07-06 10:40 | A.OFFPC_ITS ---
Vital Signs 07/06/23 10:40 Height 5 ft 5 in Weight 108 lb 8 oz BMI 18.1 BP 100/50 L Blood Pressure Location Lt brachial Position Sitting Respiration 16 Pulse 60 Pulse Source Palpation Intake Visit Reasons: f/u RMV form Tool Distributor Required: No Accompanied by: Self / Same As Patient Allergies egg [EGGS] Allergy (Unknown, Verified 07/06/23 10:55) UNKNOWN gluten [GLUTEN] Allergy (Unknown, Verified 07/06/23 10:55) UNKNOWN DAIRY PRODUCTS Allergy (Unknown, Uncoded 07/06/23 10:55) UNKNOWN Tobacco use date assessed: 04/13/23 Dental Screening Dental Screen Date: 07/06/23 Did you have a dental visit in the last 12 months?: Yes Did you have a dental problem in the last 6 months where you did not have access to dental care?: No Was dental information given to patient?: Patient has dentist HPI f/u RMV form HPI Details Patient is a 23-year-old female here today for follow-up visit.. Patient has a past medical history significant for ADHD, major depressive disorder, opiate use disorder. .. MDD: does see a psychiatrist and mental health therapist. He does have a history of the opiate use disorder and has been clean and sober from opiates over the last 1 1/2 yrs. 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 RV paperwork filled out today in office. [facility] Medical History Flat feet, bilateral Annual physical exam Screening for diabetes mellitus (DM) Juvenile absence epilepsy Hx of substance abuse Depression, major, in partial remission Family History Mother Lung cancer metastatic to brain Father No problems noted. 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 Baltazar Granados, Estelle Taylor, David Brandt and colleagues, with an educational izabel from [employer] Review of Systems Const Denies headache(s) Eyes Denies loss of vision ENT Denies vertigo, Denies dizziness, Denies headache(s) and Denies sore throat Card Denies chest pain, Denies leg edema and Denies lightheadedness Resp Denies cough, Denies hemoptysis and Denies wheezing GI Denies abdominal pain, Denies melena, Denies constipation, Denies diarrhea and Denies vomiting Denies urinary frequency, Denies dysuria and Denies urinary urgency Musc Denies arthralgias, Denies joint swelling, Denies numbness and Denies tingling Neuro Denies Abnormal speech present, Denies behavioral changes, Denies vertigo, Denies dizziness, Denies headache(s), Denies loss of vision, Denies memory loss, Denies numbness and Denies tingling Psych Denies anxiety, Denies behavioral changes, Denies depression, Denies memory loss and Denies panic attacks Abilio/Lymph Denies easy bleeding and Denies easy bruising Aller/Immun Denies wheezing Physical exam (Primary Care) Vital Signs: Last Vital Signs Pulse 60 07/06/23 10:40 Resp 16 07/06/23 10:40 BP 100/50 L 07/06/23 10:40 BMI result Body Mass Index 18.1 Tobacco/Smoking Status: Tobacco use Status Tobacco use date assessed 04/13/23 07/06/23 10:40 Patient Tobacco Use Status Current everyday Tobacco 07/06/23 10:40 Tobacco use type Smokeless Tobacco 07/06/23 10:40 e-Cigarette/Vaping Use Currently Using 07/06/23 10:40 Thrive Assessment: Date of Thrive Assessment Date Thrive assessed 04/13/23 07/06/23 10:40 Const General: healthy appearing, no acute distress, alert and awake Nutritional Appearance: well nourished Orientation/consciousness: oriented to person, oriented to place and oriented to time HENMT Ears: TM's normal bilaterally General nose exam: Normal nasal mucous membranes and turbinates present Eyes Conjunctivae: conjunctivae normal Sclerae: sclerae normal Pupils: Equal, round and reactive pupils present Neck Neck: Yes no lymphadenopathy and Yes no JVD Thyroid: Thyroid normal Carotids: no bruits Resp Effort & Inspection: normal respiratory effort and not tachypneic Auscultation: no crackles, no rales, no rhonchi and no wheezes Cardio Rate: regular rate Rhythm: regular rhythm Heart sounds: no murmurs and normal S1 and S2 GI Palpation (GI): Soft to palpation, nontender, no hepatomegaly and no splenomegaly Auscultation: normal bowel sounds Skin General skin exam: no rashes or lesions noted and dry skin Neuro General: oriented to person, oriented to place and oriented to time Cranial nerves: Yes Equal, round and reactive pupils present Speech: No Abnormal speech present Gait exam (Neuro): Normal gait present Motor exam (neuro): no tremor noted Extrem Right upper extremity: full ROM Left upper extremity: full ROM Right lower extremity: full ROM; no edema Left lower extremity: full ROM; no edema Psych Mental Status: mental status grossly normal Speech and movement: Normal speech and movement present Affect: normal affect Attitude: cooperative Thought process: Normal thought process present Assessment and Plan Assessment & Plan (1) Opioid use disorder: Code(s): F11.90 - Opioid use, unspecified, uncomplicated Plan: Patient has a history of opiate use disorder now in remission. Was on medication to help her with her opiate use disorder though now has been able to remain sober without medication. Has been sober now over a year and half. (2) MDD (major depressive disorder), recurrent episode, moderate: Code(s): F33.1 - Major depressive disorder, recurrent, moderate Plan: Patient does have a history of major depressive disorder and bipolar disorder. She is seeing a mental health therapist and a psychiatrist who manages her mental health medication. She feels fairly well stable from a mental health point of view at this time. (3) Bipolar disorder: Code(s): F31.9 - Bipolar disorder, unspecified Qualifiers: Active/Remission status: in full remission Most recent bipolar episode type: hypomanic Qualified Code(s): F31.72 - Bipolar disorder, in full remission, most recent episode hypomanic Plan: As above Followed by psychiatrist and is on medication has stabilized her mood. Coding Level of Care Code Est Pt Level 3 (93717) Diagnoses Opioid use disorder F11.90 MDD (major depressive disorder), recurrent episode, moderate F33.1 Bipolar disorder, in full remission, most recent episode hypomanic F31.72 Active/Remission status: in full remission Most recent bipolar episode type: hypomanic
== END 2023-07-06 11:15 | disposition home or self-care (01) ==
PROVIDERS: PCP Physician Assistant; Visit Provider Physician Assistant
DX: F31.72 Bipolar disorder, in full remission, most recent episode hypomanic (principal); F11.90 Opioid use, unspecified, uncomplicated
CPT/HCPCS: 99213

== ENCOUNTER 2023-07-07 14:30 | Outpatient (REF) | payer OTHER, SELFPAY ==
[2023-07-07 18:53] LABS: Amphetamine Screen Urine Not Detected (Not Detect); Barbiturates, Urine Not Detected (Not Detect); Benzodiazepines Screen Urine Not Detected (Not Detect); Cannabinoid Screen Urine Not Detected (Not Detect); Cocaine Screen Urine Not Detected (Not Detect); Fentanyl, urine Not Detected (Not Detect); Opiate Screen Urine Not Detected (Not Detect); Phencyclidine Screen Urine Not Detected (Not Detect)
== END 2023-07-07 14:31 | disposition home or self-care (01) ==
LOC: HO.LAB 14:30
PROVIDERS: PCP Physician Assistant; Visit Provider Physician Assistant
DX: F11.90 Opioid use, unspecified, uncomplicated (principal)
CPT/HCPCS: 80307

== ENCOUNTER 2023-08-03 10:39 | Outpatient (AMB) | payer OTHER, SELFPAY ==
[2023-08-03 10:59] VITALS: BP 100/60; PULSE 62; RESP 16; BMI 18.1
--- NOTE | 2023-08-03 10:59 | MHC.PC.OV ---
Vital Signs 08/03/23 10:59 Height 5 ft 5 in Weight 109 lb BMI 18.1 BP 100/60 Blood Pressure Location Lt brachial Position Sitting Respiration 16 Pulse 62 Pulse Source Palpation Intake Visit Reasons: f/u RMV Intake Note: The patient is present for two referrals: one for a chro and another for the Ortho-Gissel product test specialist. The patient no longer requires RMV forms, as she has obtained her permit. Fulfillment Specialist Required: No Accompanied by: Self / Same As Patient Allergies egg [EGGS] Allergy (Unknown, Verified 08/03/23 11:32) UNKNOWN gluten [GLUTEN] Allergy (Unknown, Verified 08/03/23 11:32) UNKNOWN DAIRY PRODUCTS Allergy (Unknown, Uncoded 08/03/23 11:02) UNKNOWN Medication List - Last Reconciled 08/03/23 by Yonis Steward PA-C oxcarbazepine (Trileptal) 600 mg PO BEDTIME quetiapine (Seroquel) 300 mg PO BEDTIME Tobacco use date assessed: 08/03/23 Dental Screening Dental Screen Date: 08/03/23 Did you have a dental visit in the last 12 months?: Yes Did you have a dental problem in the last 6 months where you did not have access to dental care?: No Was dental information given to patient?: Patient has dentist HPI f/u RMV HPI Details Patient is a 23-year-old female here today for follow-up visit.. Patient has a past medical history significant for ADHD, major depressive disorder, opiate use disorder. .. MDD: does see a psychiatrist and mental health therapist. He does have a history of the opiate use disorder and has been clean and sober from opiates over the last 1 1/2 yrs. She did receive her permanent now needs a road test through the [facility].. would like to see METALLURGICAL SPECIALIST -given phone number to the [place] household appliance mechanic office Does have bilateral flat feet and bunions. She would like to see a web marketing specialist for evaluation and treatment. [facility] Medical History Screening for diabetes mellitus (DM) Flat feet, bilateral Annual physical exam Juvenile absence epilepsy Hx of substance abuse Depression, major, in partial remission Family History Mother Lung cancer metastatic to brain Father No problems noted. 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 1. Little interest or pleasure in doing things: not at all 2. Feeling down, depressed, or hopeless: not at all 3. Trouble falling or staying asleep, or sleeping too much: not at all 4. Feeling tired or having little energy: not at all 5. Poor appetite or overeating: not at all 6. Feeling bad about yourself - or that you are a failure or have let yourself or your family down: not at all 7. Trouble concentrating on things, such as reading the newspaper or watching television: not at all 8. Moving or speaking so slowly that other people could have noticed. Or the opposite - being so fidgety or restless that you have been moving around a lot more than usual: not at all 9. Thoughts that you would be better off or of hurting yourself in some way: not at all Total score: 0 Depression Screening Interpretation: Negative Depression Screening Done: Yes 70345 - PHQ-9 Billing: Yes Source: Developed by Drs. Baltazar Granados, Estelle Taylor, David Brandt and colleagues, with an educational izabel from [employer]. Thrive Questionnaire Date Thrive assessed: 08/03/23 I am a: Patient What is your living situation today?: I have a steady place to live Within the past 12 months, did the food you bought not last and you didn't have the money to get more?: Never true Within the past 12 months, did you worry whether your food would run out before you got money to buy more?: Never true Do you have trouble paying for medicines?: No Do you have trouble getting transportation to medical appointments?: No Do you have trouble paying your heating and electricity bill?: No Do you have trouble taking care of your child, family member or friend?: No Do you have trouble with day-to-day activities such as bathing, preparing meals, shopping, managing finances, etc.?: No Are you currently unemployed and looking for a job?: No Are you interested in more education?: No Please select the resources that you would like help with: None Currently or been in a relationship where the following occur: no concerns reported AUDIT C Alcohol Use Questionnaire (AUDIT-C) 1. How often do you have a drink containing alcohol?: Never 3. How often do you have six or more drinks on one occasion?: Never Total Score: 0 MARY-7 AMB Questionnaire MARY-7 Date MARY - 7 assessed: 08/03/23 Feeling nervous, anxious, or on edge: 0 = Not at all Not being able to stop or control worryin = Not at all Worrying too much about different things: 0 = Not at all Trouble relaxin = Not at all Being so restless that it is hard to sit still: 0 = Not at all Becoming easily annoyed or irritable: 0 = Not at all Feeling afraid as if something awful might happen: 0 = Not at all Total MARY-7 score (0-4 normal; 5-9 mild; 10-14 moderate; 15-21 severe): 0 Source: Developed by Drs. Baltazar Granados, Estelle Taylor, David Brandt and colleagues, with an educational izabel from [employer]. MARY-7 Assessment Billing MARY-7 Assessment Tool: MARY-7 Assessment [id number] Review of Systems Const Denies headache(s) Eyes Denies loss of vision ENT Denies vertigo, Denies dizziness, Denies headache(s) and Denies sore throat Card Denies chest pain, Denies leg edema and Denies lightheadedness Resp Denies cough, Denies hemoptysis and Denies wheezing GI Denies abdominal pain, Denies melena, Denies constipation, Denies diarrhea and Denies vomiting Denies urinary frequency, Denies dysuria and Denies urinary urgency Musc Denies arthralgias, Denies joint swelling, Denies numbness and Denies tingling Neuro Denies Abnormal speech present, Denies behavioral changes, Denies vertigo, Denies dizziness, Denies headache(s), Denies loss of vision, Denies memory loss, Denies numbness and Denies tingling Psych Denies anxiety, Denies behavioral changes, Denies depression, Denies memory loss and Denies panic attacks Abilio/Lymph Denies easy bleeding and Denies easy bruising Aller/Immun Denies wheezing Physical exam (Primary Care) Vital Signs: Last Vital Signs Pulse 62 08/03/23 10:59 Resp 16 08/03/23 10:59 BP 100/60 08/03/23 10:59 BMI result Body Mass Index 18.1 Tobacco/Smoking Status: Tobacco use Status Tobacco use date assessed 08/03/23 08/03/23 11:08 Patient Tobacco Use Status Current everyday Tobacco 08/03/23 11:02 Tobacco use type Smokeless Tobacco 08/03/23 11:02 e-Cigarette/Vaping Use Currently Using 08/03/23 11:02 PHQ-9: PHQ-9 Score PHQ-9: Total score 0 08/03/23 11:08 Depression Screening Interpretation: Negative Thrive Assessment: Date of Thrive Assessment Date Thrive assessed 08/03/23 08/03/23 11:08 Currently or been in a relationship where the following occur: no concerns reported Const General: healthy appearing, no acute distress, alert and awake Nutritional Appearance: well nourished Orientation/consciousness: oriented to person, oriented to place and oriented to time HENMT Ears: TM's normal bilaterally General nose exam: Normal nasal mucous membranes and turbinates present Eyes Conjunctivae: conjunctivae normal Sclerae: sclerae normal Pupils: Equal, round and reactive pupils present Neck Neck: Yes no lymphadenopathy and Yes no JVD Thyroid: Thyroid normal Carotids: no bruits Resp Effort & Inspection: normal respiratory effort and not tachypneic Auscultation: no crackles, no rales, no rhonchi and no wheezes Cardio Rate: regular rate Rhythm: regular rhythm Heart sounds: no murmurs and normal S1 and S2 GI Palpation (GI): Soft to palpation, nontender, no hepatomegaly and no splenomegaly Auscultation: normal bowel sounds Skin General skin exam: no rashes or lesions noted and dry skin Neuro General: oriented to person, oriented to place and oriented to time Cranial nerves: Yes Equal, round and reactive pupils present Speech: No Abnormal speech present Gait exam (Neuro): Normal gait present Motor exam (neuro): no tremor noted Extrem Right upper extremity: full ROM Left upper extremity: full ROM Right lower extremity: full ROM; no edema Left lower extremity: full ROM; no edema Psych Mental Status: mental status grossly normal Speech and movement: Normal speech and movement present Affect: normal affect Attitude: cooperative Thought process: Normal thought process present Assessment and Plan Assessment & Plan (1) Bilateral bunions: Code(s): M21.611 - Bunion of right foot; M21.612 - Bunion of left foot Plan: Would like to see Podiatry. (2) Cervical cancer screening: Code(s): Z12.4 - Encounter for screening for malignant neoplasm of cervix (3) Flat feet, bilateral: Code(s): M21.41 - Flat foot [pes planus] (acquired), right foot; M21.42 - Flat foot [pes planus] (acquired), left foot Plan: To see web marketing specialist (4) Opioid use disorder: Code(s): F11.90 - Opioid use, unspecified, uncomplicated Plan: Patient has a history of opiate use disorder now in remission. Was on medication to help her with her opiate use disorder though now has been able to remain sober without medication. Has been sober now over a year and half. She does have her permanent and is doing a Road test through the [facility] today. (5) MDD (major depressive disorder), recurrent episode, moderate: Code(s): F33.1 - Major depressive disorder, recurrent, moderate Plan: Patient does have a history of major depressive disorder and bipolar disorder. She is seeing a mental health therapist and a psychiatrist who manages her mental health medication. She feels fairly well stable from a mental health point of view at this time. (6) Bipolar disorder: Code(s): F31.9 - Bipolar disorder, unspecified Qualifiers: Active/Remission status: in full remission Most recent bipolar episode type: hypomanic Qualified Code(s): F31.72 - Bipolar disorder, in full remission, most recent episode hypomanic Plan: As above Followed by psychiatrist and is on medication has stabilized her mood. Orders: Orders Comprehensive [place]. Panel Fast 8 Months Z13.1 - Encounter for screening for diabetes mellitus Referrals Podiatry Referral M21.41 - Flat foot [pes planus] (acquired), right foot, M21.42 - Flat foot [pes planus] (acquired), left foot, M21.611 - Bunion of right foot, M21.612 - Bunion of left foot Coding Level of Care Code Est Pt Level 3 (14143) Diagnoses Bilateral bunions M21.611; M21.612 Cervical cancer screening Z12.4 Flat feet, bilateral M21.41; M21.42 Opioid use disorder F11.90 MDD (major depressive disorder), recurrent episode, moderate F33.1 Bipolar disorder, in full remission, most recent episode hypomanic F31.72 Active/Remission status: in full remission Most recent bipolar episode type: hypomanic Additional Codes MARY-7 Assessment Billing - MARY-7 Assessment Tool: MARY-7 Assessment [id number] ([id number])
== END 2023-08-03 11:39 | disposition home or self-care (01) ==
PROVIDERS: PCP Physician Assistant; Visit Provider Physician Assistant
DX: M21.611 Bunion of right foot (principal); M21.612 Bunion of left foot; M21.41 Flat foot [pes planus] (acquired), right foot; M21.42 Flat foot [pes planus] (acquired), left foot; F11.90 Opioid use, unspecified, uncomplicated
CPT/HCPCS: 99213

== ENCOUNTER 2023-10-05 11:01 | Outpatient (REF) | payer OTHER, SELFPAY | END 2023-10-05 11:02 | disposition home or self-care (01) | LOC: HO.LAB 11:01 | PROVIDERS: PCP Physician Assistant; Visit Provider Advanced Practice Midwife | DX: Z01.419 Encounter for gynecological examination (general) (routine) without abnormal findings (principal); Z20.2 Contact with and (suspected) exposure to infections with a predominantly sexual mode of transmission; Z62.810 Personal history of physical and sexual abuse in childhood; Z79.899 Other long term (current) drug therapy | CPT/HCPCS: 88142; 99385 ==

== ENCOUNTER 2023-10-05 11:01 | Outpatient (AMB) | payer OTHER, SELFPAY ==
[2023-10-05 11:06] VITALS: BP 112/60; BMI 17.3
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
== END 2023-10-05 12:19 | disposition home or self-care (01) ==
PROVIDERS: PCP Physician Assistant; Visit Provider Advanced Practice Midwife
DX: Z12.4 Encounter for screening for malignant neoplasm of cervix (principal); Z01.419 Encounter for gynecological examination (general) (routine) without abnormal findings; Z62.810 Personal history of physical and sexual abuse in childhood; Z11.3 Encounter for screening for infections with a predominantly sexual mode of transmission
CPT/HCPCS: 99385

== ENCOUNTER 2023-10-05 12:16 | Outpatient (REF) | payer OTHER, SELFPAY ==
[2023-10-06 03:48] LABS: Syphilis Screen Nonreactive (Nonreactive)
[2023-10-06 04:36] LABS: HBsAGNum1 0.42 S/CO (0.00-0.99); HIV AB/AG Nonreactive (Nonreactive); HIV Num 1 0.06 S/CO (0.00-0.99); Hepatitis B Surface Antigen Negative (Negative); ~HepC Num1 0.19 S/CO (0.00-0.79); ~Hepatitis C Antibody Nonreactive (Nonreactive)
[2023-10-06 11:41] LABS: CT PCR NOT DETECTED (Not Detect.); NG PCR NOT DETECTED (Not Detect.)
[2023-10-06 13:57] LABS: BV Int Neg Control Negative (Negative); BV Int Pos Control Positive (Positive)
== END 2023-10-05 12:17 | disposition home or self-care (01) ==
LOC: HO.HHCL 12:16
PROVIDERS: Visit Provider Advanced Practice Midwife
DX: Z01.419 Encounter for gynecological examination (general) (routine) without abnormal findings (principal); Z20.2 Contact with and (suspected) exposure to infections with a predominantly sexual mode of transmission
CPT/HCPCS: 0353U; 86780; 86803; 87340; 87389; 87480; 87510; 87660

== ENCOUNTER 2023-12-19 11:32 | Emergency (ER) | payer OTHER, SELFPAY ==
[2023-12-19 12:06] VITALS: BP 128/68; PULSE 99; RESP 18; TEMP 36.6; O2SAT 99; BMI 17.1
--- NOTE | 2023-12-19 12:13 | ECG_ITS ---
Test Reason : CP Blood Pressure : / mmHG Vent. Rate : 070 BPM Atrial Rate : 070 BPM P-R Int : 116 ms QRS Dur : 090 ms QT Int : 376 ms P-R-T Axes : 060 071 066 degrees QTc Int : 406 ms Normal sinus rhythm Normal ECG When compared with ECG of 30-JUN-2016 16:15, No significant change was found Referred By: Li Haynes Electronically Signed By:NELY MALHOTRA
--- NOTE | 2023-12-19 12:14 | ED.GENADULT ---
HPI - General Adult General Chief complaint: General Medical Stated complaint: rib pain , multiple other problems Source: patient Mode of arrival: ambulatory Limitations: no limitations History of Present Illness ED Provider: Li Haynes PA-C HPI narrative: Patient is a 23 year old assigned female at with a history of bipolar disorder, MDD, and opioid use disorder presenting to the emergency department today with rib pain and difficulty breathing. Patient states that earlier today she began to have shortness of breath and rib pain but both of those things have now resolved. Patient states that she has also had increased in urination. Patient denies any dizziness, lightheadedness, abdominal pain, nausea, vomiting, fever, chills, blurry vision, double vision, loss of vision, chest pain, difficulty breathing, shortness of breath, back pain, night sweats, pain with urination, increased urinary urgency, blood in [his/her/their] urine or stool, syncope or a near syncopal episode, recent trauma or falls, bowel incontinence, bladder incontinence, bowel retention, bladder retention, or any other complaints at this time. Relieving factors: none Exacerbating factors: none Associated symptoms: denies other symptoms Treatments prior to arrival: none Related Data Home Medications ?Medication ?Instructions ?Recorded ?Confirmed oxcarbazepine 600 mg tablet 600 mg PO BEDTIME 04/13/23 10/05/23 (Trileptal) quetiapine 300 mg tablet (Seroquel) 300 mg PO BEDTIME 04/13/23 10/05/23 etonogestrel 68 mg subdermal subdermal 10/05/23 10/05/23 implant (Nexplanon) lisdexamfetamine 30 mg capsule 30 mg PO QAM 10/05/23 10/05/23 (Vyvanse) Allergies Allergy/AdvReac Type Severity Reaction Status Date / Time No Known Allergies Allergy Verified 12/19/23 12:10 Review of Systems Constitutional: Constitutional: Reports no additional constitutional complaints, Denies chills, Denies fever(s) and Denies night sweats Eyes: Eyes: Reports no additional eye complaints, Denies blurry vision, Denies change in vision, Denies diplopia, Denies eye discharge, Denies loss of vision and Denies eye pain ENT: Denies dizziness Cardiovascular: Cardiovascular: Reports no additional cardiovascular complaints, Denies chest pain, Denies lightheadedness, Denies Loss of Consciousness and Denies dyspnea Respiratory: Respiratory: Reports no additional respiratory complaints and Denies dyspnea Gastrointestinal: Gastrointestinal: Reports no additional gastrointestinal complaints, Denies abdominal pain, Denies melena, Denies hematochezia, Denies change in bowel habits and Denies change in stool character Genitourinary: Genitourinary: Denies hematuria, Denies urinary frequency, Denies dysuria, Denies urinary incontinence, Denies urinary hesitancy and Denies urinary urgency Comments: increased urinary frequency Musculoskeletal: Musculoskeletal: Reports no additional musculoskeletal complaints, Denies numbness and Denies tingling Neurologic: Denies dizziness, Denies loss of vision, Denies numbness and Denies tingling Psychiatric: Psychiatric: Reports no additional psychiatric complaints Endocrine: Endocrine: Reports no additional endocrine complaints Hematologic/Lymphatic: Hematologic/Lymphatic: Reports no additional hematologic/lymphatic complaints Allergic/Immunologic: Allergic/Immunologic: Reports no additional allergic/immunologic complaints PMFSH Past Medical History Attestation statement: The following information was validated with the patient. Source: old records reviewed and nursing notes reviewed Medical History Screening for diabetes mellitus (DM) Flat feet, bilateral Annual physical exam Juvenile absence epilepsy Hx of substance abuse Depression, major, in partial remission Family History Family History Mother Lung cancer metastatic to brain Father No problems noted. 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 [employer] Cognitive needs: No Hearing needs: No Vision needs: Yes Physical Exam ED Vital Signs: Vital Signs - 24 hr 12/19/23 12:06 Temperature 97.8 F Pulse Rate 99 Respiratory Rate 18 Blood Pressure 128/68 Pulse Oximetry 99 Oxygen Delivery Method Room Air BMI result Body Mass Index 17.1 Const General: cooperative, no acute distress, alert and awake Nutritional Appearance: cachectic and malnourished Orientation/consciousness: patient oriented x3 Limitations: no limitations HENMT Head: Yes normal to inspection and Yes atraumatic Ears: hearing grossly normal bilaterally and external ears normal General nose exam: Normal external nose present, no nasal discharge noted and no epistaxis Face and sinus: Yes normal facial exam, No abrasion and No laceration Mouth: Normal oral and palatal mucosa present, no drooling and no muffled voice Eyes General: appearance normal, both eyes and all related structures Periorbital: periorbital findings normal Eyelids: Yes eyelids normal Conjunctivae: conjunctivae normal Pupils: Equal, round and reactive pupils present EOM: EOMs intact bilaterally Neck Neck: Yes normal visual inspection, Yes full ROM and Yes no lymphadenopathy Chest Chest palpation & inspection: normal inspection of the chest Resp Effort & Inspection: normal respiratory effort and able to speak in complete sentences GI Inspection: Yes normal to inspection Neuro General: patient oriented x3 and moves all extremities Cranial nerves: Yes Equal, round and reactive pupils present Cognition (Neuro): normal cognition Motor exam (neuro): 5/5 motor strength present throughout Sensory Exam: Normal double simultaneous stimulation for sensation Coordination: [id number] test normal Extrem General: Yes normal to inspection, Yes full ROM and Yes capillary refill normal Psych Appearance: grossly normal Mental Status: mental status grossly normal Affect: normal affect Attitude: cooperative Thought process: Normal thought process present Thought content: Normal thought content present Insight: Good insight present (Psych) Course Course Course Narrative: RME performed by Li Haynes PA-C. Patient is a 23 year old assigned female at presenting to the emergency department with rib pain and weight loss. Patient states that she has been having much more weight loss than she anticipated and is having increased urinary frequency. Detailed physical exam and review of systems are deferred to the director of primary care. EKG, labs, and swabs ordered. Patient placed back in the waiting room pending room availability and results. Medical Decision Making Medical Decision Making MDM Narrative: Patient is a 23 year old assigned female at with a history of bipolar disorder, MDD, and opioid use disorder presenting to the emergency department today with increased urinary frequency, resolve chest pain, and resolved shortness of breath. Patient's limited physical exam performed in triage showed a malnourished / cachetic looking individual but was otherwise unremarkable. Patient's blood work was unremarkable. Patient's urine showed no acute process. Patient's EKG was unremarkable. Patient left the department without completing treatment. Patient left the department before myself or any of the other emergency department clinicians could explain to or review with the patient; physical exam findings, test results, need or lack there of for additional testing, need or lack there of for a procedure to be performed, need or lack there of for hospital admission / transfer, need or lack there of for prescription medication, treatment options, or a treatment plan. Differential Diagnosis Differential Diagnoses: The differential diagnosis associated with the presentation includes Electrolyte abnormality Drug use Opiate use Opiate abuse Chest pain Admission/Observation Consideration of admission/observation: Escalation of care including admission/observation considered Patient would have been admitted to the hospital had she completed her work up and it had any findings where hospital admission was appropriate, her clinical presentation warranted hospital admission, had myself or any other emergency [facility] department supervisor had the ability to discuss need or lack there of for hospital admission, and the patient hadn't left the department without completing treatment. Lab Data MDM Lab Attestation statement: I reviewed the patient's lab results. My interpretation of these studies and their corresponding values is that they are grossly normal. 12/19/23 12:34 12/19/23 12:34 Labs: Lab Results 12/19/23 Range/Units 12:34 WBC 7.4 (4.8-10.8) X10*3/uL RBC 5.00 (4.20-5.50) X10*6/uL Hgb 15.2 (12.0-16.0) g/dl Hct 44.1 (37.0-47.0) % MCV 88.2 (80.0-98.0) fL MCH 30.4 (27.0-33.0) pg MCHC 34.5 (31.0-35.0) g/dl RDW 13.2 (11.0-16.0) % Plt Count 267 (160-400) X10*3/uL MPV 10.0 (9.4-12.3) fL Immature Gran % (Auto) 0.3 (0.0-0.4) % Neut % (Auto) 56.8 (45-73) % Lymph % (Auto) 33.0 (20-40) % [place] % (Auto) 8.0 (2-11) % Eos % (Auto) 0.8 (0-4) % Baso % (Auto) 1.1 (0-2) % Lymph # (Auto) 2.4 (1.2-4.9) X10*3/uL [place] # (Auto) 0.6 (0.1-1.2) X10*3/uL Eos # (Auto) 0.1 (0.0-0.4) X10*3/uL Baso # (Auto) 0.1 (0.0-0.2) X10*3/uL Abs Immat Gran (auto) 0.02 (0.00-0.03) X10*3/uL Absolute Neuts (auto) 4.2 (2.0-8.3) x10*3/uL Absolute Nucleated RBC 0.000 (0.0-0.012) X10*3/uL Nucleated RBC % (auto) 0.0 (0.0-0.2) /100WBC Sodium 141 (135-145) mmol/L Potassium 4.1 (3.3-5.1) mmol/L Chloride 105 (96-108) mmol/L Carbon Dioxide 28 (22-29) mmol/L Anion Gap 12 (12-20) BUN 9 (9-16) mg/dL Creatinine 0.78 (0.5-1.4) mg/dL Estim Creat Clear Calc 82.6 Estimated GFR > 60 Random Glucose 93 (60-115) mg/dL Calcium 9.6 D (8.4-10.2) mg/dL Magnesium 2.0 (1.6-2.6) mg/dL Total Bilirubin 0.4 (0.0-1.0) mg/dL AST 15 (5-31) U/L ALT 14 (0-31) U/L Alkaline Phosphatase 55 (39-117) U/L Troponin I High Sens < 2.7 (<3.5-17.0) ng/L Total Protein 7.4 (6.5-8.0) g/dL Albumin 4.9 (3.5-5.0) g/dL TSH 0.49 (0.32-4.0) uIU/mL Beta HCG, Quant < 2 mIU/mL Urine Color Yellow Urine Appearance Clear Urine pH 7.0 (5.0-9.0) Ur Specific [place] 1.020 (1.005-1.025) Urine Protein Negative (Neg-Trace) mg/dL Urine Glucose (UA) Negative (Negative) mg/dL Urine Ketones Negative (Negative) mg/dL Urine Blood Negative (Negative) Urine Nitrite Negative (Negative) Ur Leukocyte Esterase Negative (Negative) Influenza Type A (PCR) NEGATIVE (Negative) Influenza Type B (PCR) NEGATIVE (Negative) RSV RNA Qual (PCR) NEGATIVE (Negative) SARS-CoV-2 RNA (RT-PCR) NEGATIVE (Negative) Independent Interpretation I performed an independent interpretation of an: EKG Interpretation: Vent. Rate: 070 BPM Atrial Rate: 070 BPM P-R Int: 116 ms QRS Dur: 090 ms QT Int: 376 ms P-R-T Axes: 060 071 066 degrees QTc Int: 406 ms Normal sinus rhythm Normal ECG When compared with ECG of 30-JUN-2016 16:15, No significant change was found Electronically Signed By:NELY MCKINNEY Dictated By: Nely Mckinney MD Signed By: Electronically signed by Nely Mckinney MD 12/19/23 1506 Discharge Plan Discharge Clinical Impression: Increased urinary frequency Patient Disposition: Left W/O Completing Treatment Prescriptions: No Action quetiapine [Seroquel] 300 mg tablet 300 mg PO BEDTIME oxcarbazepine [Trileptal] 600 mg tablet 600 mg PO BEDTIME lisdexamfetamine [Vyvanse] 30 mg capsule 30 mg PO QAM Nexplanon 68 mg implant subdermal Discharge Date/Time: 12/19/23 19:23
[2023-12-19 12:40] LABS: MANUAL DIFF FLAG NO
[2023-12-19 12:42] LABS: Basophils Absolute Auto 0.1 X10*3/uL (0.0-0.2); Basophils Percent Auto 1.1 % (0-2); Eosinophils Absolute Auto 0.1 X10*3/uL (0.0-0.4); Eosinophils Percent Auto 0.8 % (0-4); Hematocrit 44.1 % (37.0-47.0); Hemoglobin 15.2 g/dl (12.0-16.0); Imm Gran Abs Auto 0.02 X10*3/uL (0.00-0.03); Imm Gran Pct Auto 0.3 % (0.0-0.4); Lymphocytes Absolute Auto 2.4 X10*3/uL (1.2-4.9); Mean Corpuscular HGB Conc 34.5 g/dl (31.0-35.0); Mean Corpuscular Hemoglobin 30.4 pg (27.0-33.0); Mean Corpuscular Volume 88.2 fL (80.0-98.0); Monocytes Absolute Auto 0.6 X10*3/uL (0.1-1.2); Neutrophils Absolute Auto 4.2 x10*3/uL (2.0-8.3); Neutrophils Percent Auto 56.8 % (45-73); Platelet Count 267 X10*3/uL (160-400); Red Cell Distribution Width 13.2 % (11.0-16.0); White Blood Count 7.4 X10*3/uL (4.8-10.8)
[2023-12-19 12:46] LABS: Appearance Urine Clear; Color Urine Yellow; Glucose Urine UA Negative (Negative); Leukocyte Esterase Urine Negative (Negative); Nitrite Urine Negative (Negative); Urine Blood Negative (Negative); Urine Ketones Negative (Negative); Urine Protein Negative (Neg-Trace)
[2023-12-19 12:59] LABS: Alanine Aminotransferase 14 U/L (0-31); Albumin Level 4.9 g/dL (3.5-5.0); Alkaline Phosphatase 55 U/L (39-117); Anion Gap 12 (12-20); Aspartate Amino Transferase 15 U/L (5-31); Bilirubin Total 0.4 mg/dL (0.0-1.0); Blood Urea Nitrogen 9 mg/dL (9-16); Calcium 9.6 mg/dL (8.4-10.2); Carbon Dioxide 28 mmol/L (22-29); Chloride 105 mmol/L (96-108); Creatinine Clr Calc Pharmacy 82.6; Estimated Glomerular Filt Rate > 60; Glucose Random 93 mg/dL (60-115); Potassium 4.1 mmol/L (3.3-5.1); Sodium 141 mmol/L (135-145); Total Protein 7.4 g/dL (6.5-8.0)
[2023-12-19 13:09] LABS: Troponin-I High Sensitivity < 2.7 ng/L (<3.5-17.0)
[2023-12-19 13:19] LABS: Influenza A PCR NEGATIVE (Negative); Influenza B PCR NEGATIVE (Negative); Resp Syncy Virus RNA Qual PCR NEGATIVE (Negative); SARS COV2 PCR INHOUSE NEGATIVE (Negative)
[2023-12-19 13:24] LABS: HCG Quantitative < 2 mIU/mL; TSH reflex Free T4 0.49 uIU/mL (0.32-4.0)
== END 2023-12-19 19:23 | disposition left against medical advice (07) ==
PROVIDERS: Physician Assistant Medical; Emergency Provider Emergency Medicine; PCP Physician Assistant
DX: R35.0 Frequency of micturition (principal); R07.81 Pleurodynia; R06.02 Shortness of breath; F11.90 Opioid use, unspecified, uncomplicated; F32.9 Major depressive disorder, single episode, unspecified; Z03.818 Encounter for observation for suspected exposure to other biological agents ruled out
CPT/HCPCS: 0241U; 36415; 80053; 81003; 83735; 84443; 84484; 84702; 85025; 93005; 99283

== ENCOUNTER → 2023-12-19 12:13 | Outpatient (BNV) | payer OTHER, SELFPAY | PROVIDERS: PCP Physician Assistant; Visit Provider Internal Medicine | DX: R07.9 Chest pain, unspecified (principal) | CPT/HCPCS: 93010 ==

== ENCOUNTER 2024-01-10 08:33 | Outpatient (AMB) | payer OTHER, SELFPAY ==
--- NOTE | 2024-01-10 08:34 | A.OFFVIS_ITS ---
VS Expanded 01/10/24 10:19 Height 5 ft 5 in Weight 102 lb 2.1 oz BMI 17.0 Intake Visit Reasons: Eating disorder, unspecified/LVM Allergies No Known Allergies Allergy (Verified 12/19/23 12:10) Nutrition Presentation Details: Pt presents for MNT for hx of eating disorder. Pt looking to work on meal planning. Pt was referred by PCPAlida Pt reports feeling full fast and having 1/2 of meal served 9 am: granola bar and premier protein shake (300 charan Lunch: sand or taco or bag of chips , snapple ice tea (reg), sometimes diet 300 charan dinner: 1/2 burger and small fries, diet soda (300-400) snack fruit or chips (120-150 charan etoh--- smoking--- vomiting denies lax: denies Per [facility] record wt hx 109 in 07/2023, 113 lbs in 2022, 120 in 11/2021 food frequency reports having 3 -4 meals/d feels full too fast and eat 1/2 of meal served dairy: choosing almond milk (choice) protein: 4-6 oz /day reports weighing self at home daily and today was 102 lbs BS Monitoring Most Recent Diabetes Results: Creatinine 0.78 mg/dL (0.5-1.4) 12/19/23 Blood Urea Nitrogen 9 mg/dL (9-16) 12/19/23 Sodium 141 mmol/L (135-145) 12/19/23 Potassium 4.1 mmol/L (3.3-5.1) 12/19/23 Chloride 105 mmol/L (96-108) 12/19/23 Carbon Dioxide 28 mmol/L (22-29) 12/19/23 Calcium 9.6 mg/dL (8.4-10.2) 12/19/23 AST 15 U/L (5-31) 12/19/23 ALT 14 U/L (0-31) 12/19/23 Total Protein 7.4 g/dL (6.5-8.0) 12/19/23 Albumin 4.9 g/dL (3.5-5.0) 12/19/23 [facility] Medical History Screening for diabetes mellitus (DM) Flat feet, bilateral Annual physical exam Juvenile absence epilepsy Hx of substance abuse Depression, major, in partial remission Family History Mother Lung cancer metastatic to brain Father No problems noted. 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 [employer] Cognitive needs: No Hearing needs: No Vision needs: Yes Female Reproductive History Menstrual Age of Menarche: 13 Assessment & Plan Assessment & Plan (1) Eating disorder: Code(s): F50.9 - Eating disorder, unspecified Category: Medical Plan: Wt: 46.8 Kg ( 12/19/23 at PCP ) Est kcal needs as per MSJ: 1450 + gradual increase of calories by 400-500 every 2-4 days to promote healthy weight gain (40% carb, 30% protein/fat) Est fluid needs as per 25-30 ml/d: 1400 Est prot per day as per 1.2 g/kg bw: min 56g Recommend fiber intake : 8-10 g per day and gradually increase to 25-28 g per day for women and 35-38 g for men or as tolerated Recommend sodium intake per day : 2000 mg Educated patient on: ( R = reviewed V = verbalizes understanding N/R = needs review N/A = not applicable * : Balancing meals, increasing nutrients/vitamin via fat/protein/starches Patient Instructions: Increase calories by 400 by having full fat cows milk in place of almond milk have regular soda in place of diet with the meals work on having small meals, 5-6 small meals a day will monitor weight weekly at next f/u keep a food record and bring to your next appointment Coding Level of Care Code Nutr Indiv Intake (63990) Diagnoses Eating disorder F50.9 Time Spent (min) 30
[2024-01-10 10:19] VITALS: BMI 17.0
== END 2024-01-10 09:18 | disposition home or self-care (01) ==
PROVIDERS: PCP Physician Assistant; Visit Provider Dietitian, Registered
DX: F50.9 Eating disorder, unspecified (principal)

== ENCOUNTER → 2024-01-10 08:33 | Outpatient (BNVA) | payer OTHER, SELFPAY | PROVIDERS: PCP Physician Assistant; Visit Provider Dietitian, Registered | DX: F50.9 Eating disorder, unspecified (principal) | CPT/HCPCS: 97802 ==

== ENCOUNTER 2024-02-07 08:26 | Outpatient (AMB) | payer OTHER, SELFPAY ==
--- NOTE | 2024-02-07 08:32 | MHC.AMNUTRGE ---
VS Expanded 02/07/24 08:40 Height 5 ft 5 in Weight 102 lb 8.239 oz BMI 17.1 Intake Visit Reasons: UNDERWEIGHT/LVM Allergies No Known Allergies Allergy (Verified 12/19/23 12:10) Nutrition Presentation Details: Pt presents for MNT f/u related to eating disorder Pt reports working on keeping hydrated, weighs self 2 times a week, reducing on frequency from daily 7-9 am : -gnanola kodiac and premier protein -cheese stick and trail , water or juice 4pm : burger with fries (small fries with ketchup, 1/2 of burger or non), coke zero or sprite reg 7-8 pm : ramen , coke zero BS Monitoring Most Recent Diabetes Results: Creatinine 0.78 mg/dL (0.5-1.4) 12/19/23 Blood Urea Nitrogen 9 mg/dL (9-16) 12/19/23 Sodium 141 mmol/L (135-145) 12/19/23 Potassium 4.1 mmol/L (3.3-5.1) 12/19/23 Chloride 105 mmol/L (96-108) 12/19/23 Carbon Dioxide 28 mmol/L (22-29) 12/19/23 Calcium 9.6 mg/dL (8.4-10.2) 12/19/23 AST 15 U/L (5-31) 12/19/23 ALT 14 U/L (0-31) 12/19/23 Total Protein 7.4 g/dL (6.5-8.0) 12/19/23 Albumin 4.9 g/dL (3.5-5.0) 12/19/23 [facility] Medical History Screening for diabetes mellitus (DM) Flat feet, bilateral Annual physical exam Juvenile absence epilepsy Hx of substance abuse Depression, major, in partial remission Family History Mother Lung cancer metastatic to brain Father No problems noted. 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 [employer] Cognitive needs: No Hearing needs: No Vision needs: Yes Female Reproductive History Menstrual Age of Menarche: 13 Assessment & Plan Assessment & Plan (1) Eating disorder: Code(s): F50.9 - Eating disorder, unspecified Category: Medical Plan: Wt: 46.8 Kg ( 12/19/23 at PCP ) Est kcal needs as per MSJ: 1450 + gradual increase calories by 500-1000 every 2-4 days to promote healthy weight gain (40% carb, 30% protein/fat) Est fluid needs as per 25-30 ml/d: 1400 Est prot per day as per 1.2 g/kg bw: min 56g Recommend fiber intake : 8-10 g per day and gradually increase to 25-28 g per day for women and 35-38 g for men or as tolerated Recommend sodium intake per day : 2000 mg Educated patient on: ( R = reviewed V = verbalizes understanding N/R = needs review N/A = not applicable : Balancing meals, increasing nutrients/vitamin via fat/protein/starches increasing calories to promote weight gain - relationship of increased calories to current body weight Patient Instructions: incorporate snacks: 11 am : chocolate milk and peanut butter sandwich (crackers or bread) Have juice or regular soda or chocolate milk with meals instead of diet beverages include a protein and fat in each meal/snack example : have fries with cheese or burger or fruit with peanut butter/cottage cheese or premier protein and donut, cereal with nuts or cereal and protein shake as snack Coding Level of Care Code Nutr Indiv Subseq (80237) Diagnoses Eating disorder F50.9 Time Spent (min) 30
[2024-02-07 08:40] VITALS: BMI 17.1
== END 2024-02-07 08:55 | disposition home or self-care (01) ==
PROVIDERS: PCP Physician Assistant; Visit Provider Dietitian, Registered
DX: F50.9 Eating disorder, unspecified (principal)

== ENCOUNTER → 2024-02-07 08:26 | Outpatient (BNVA) | payer OTHER, SELFPAY | PROVIDERS: PCP Physician Assistant; Visit Provider Dietitian, Registered | DX: R63.6 Underweight (principal); F50.9 Eating disorder, unspecified; Z71.3 Dietary counseling and surveillance; Z68.1 Body mass index [BMI] 19.9 or less, adult | CPT/HCPCS: 97803 ==

== ENCOUNTER 2024-02-13 15:55 | Outpatient (REF) | payer OTHER, SELFPAY ==
[2024-02-14 08:27] LABS: Syphilis Screen Nonreactive (Nonreactive)
[2024-02-14 08:50] LABS: HIV AB/AG Nonreactive (Nonreactive); HIV Num 1 0.05 S/CO (0.00-0.99)
[2024-02-14 12:06] LABS: CT PCR NOT DETECTED (Not Detect.); NG PCR NOT DETECTED (Not Detect.)
[2024-02-14 18:23] LABS: Herpes Simplex Type 2 IgG <0.90 index
== END 2024-02-13 15:56 | disposition home or self-care (01) ==
LOC: HO.LAB 15:55
PROVIDERS: PCP Physician Assistant; Visit Provider Physician Assistant
DX: Z20.2 Contact with and (suspected) exposure to infections with a predominantly sexual mode of transmission (principal)
CPT/HCPCS: 86695; 86696; 86780; 87389; 87491; 87591

== ENCOUNTER 2024-02-28 09:26 | Outpatient (AMB) | payer OTHER, SELFPAY ==
--- NOTE | 2024-02-28 09:33 | MHC.AMNUTRGE ---
VS Expanded 02/28/24 09:40 Height 5 ft 5 in Weight 106 lb 4.205 oz BMI 17.7 Intake Visit Reasons: Underweight/CONFIRMED Allergies No Known Allergies Allergy (Verified 12/19/23 12:10) Nutrition Presentation Details: Pt presents for MNT f/u for eating disorder Pt reports working on increasing food portions Reports having increased appetite for sweets Has whole milk with flavors at least 2 glasses per day (about 16-24 oz) morning meal p.b. and jelly sand with protein shake snack: trail mixes/crackers , candies evening: burger/fries, reg soda protein shakes with crackers evening: cereal with milk physical activity: using stairs at school denies constipation may have diarrhea once- twice/wk Pt reports following up with therapist on a weekly basis sees OBYARA BS Monitoring Most Recent Diabetes Results: Creatinine 0.78 mg/dL (0.5-1.4) 12/19/23 Blood Urea Nitrogen 9 mg/dL (9-16) 12/19/23 Sodium 141 mmol/L (135-145) 12/19/23 Potassium 4.1 mmol/L (3.3-5.1) 12/19/23 Chloride 105 mmol/L (96-108) 12/19/23 Carbon Dioxide 28 mmol/L (22-29) 12/19/23 Calcium 9.6 mg/dL (8.4-10.2) 12/19/23 AST 15 U/L (5-31) 12/19/23 ALT 14 U/L (0-31) 12/19/23 Total Protein 7.4 g/dL (6.5-8.0) 12/19/23 Albumin 4.9 g/dL (3.5-5.0) 12/19/23 [facility] Medical History Screening for diabetes mellitus (DM) Flat feet, bilateral Annual physical exam Juvenile absence epilepsy Hx of substance abuse Depression, major, in partial remission Family History Mother Lung cancer metastatic to brain Father No problems noted. 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 [employer] Cognitive needs: No Hearing needs: No Vision needs: Yes Female Reproductive History Menstrual Age of Menarche: 13 Assessment & Plan Assessment & Plan (1) Eating disorder: Code(s): F50.9 - Eating disorder, unspecified Category: Medical Plan: Wt: 46.8 Kg ( 12/19/23 at PCP ), 48 kg (03/16) Est kcal needs as per MSJ: 1450 + gradual increase calories by 500-1000 every 2-4 days to promote healthy weight gain (40% carb, 30% protein/fat) Est fluid needs as per 25-30 ml/d: 1400 Est prot per day as per 1.2 g/kg bw: min 56g Recommend fiber intake : 8-10 g per day and gradually increase to 25-28 g per day for women and 35-38 g for men or as tolerated Recommend sodium intake per day : 2000 mg Educated patient on: ( R = reviewed V = verbalizes understanding N/R = needs review N/A = not applicable Balancing meals, increasing nutrients/vitamin via fat/protein/starches increasing calories to promote weight gain - relationship of increased calories to current body weight Balancing sugars/protein during the day with increased appetite Patient Instructions: -Carry nuts, trail mixes, crackers with peanut butter, muffins/cupcakes as snacks -Combine with protein/fats sources: example candies and peanuts/cashews, cookies and cheese , muffins with cream cheese or nut butter, chips and hummus, smoothies Coding Level of Care Code Nutr Indiv Subseq (89102) Diagnoses Eating disorder F50.9 Time Spent (min) 15
[2024-02-28 09:40] VITALS: BMI 17.7
== END 2024-02-28 09:43 | disposition home or self-care (01) ==
PROVIDERS: PCP Physician Assistant; Visit Provider Dietitian, Registered
DX: F50.9 Eating disorder, unspecified (principal)

== ENCOUNTER → 2024-02-28 09:26 | Outpatient (BNVA) | payer OTHER, SELFPAY | PROVIDERS: PCP Physician Assistant; Visit Provider Dietitian, Registered | DX: F50.9 Eating disorder, unspecified (principal) | CPT/HCPCS: 97803 ==

== ENCOUNTER 2024-04-09 20:07 | Emergency (ER) | payer OTHER, SELFPAY ==
--- NOTE | ~2024-04-09 | US_ITS ---
EXAMINATION: US PELVIS CLINICAL INFORMATION: Heavy vaginal bleeding. COMPARISON: None available. TECHNIQUE: Ultrasound of the pelvis is performed using both transabdominal and transvaginal transducers along with Doppler. Transvaginal imaging is performed due to inadequate visualization transabdominally. FINDINGS: Uterus: The uterus is anteverted and measures 6.4 x 2.5 x 3.6 cm. The double wall endometrial thickness is 2 mm. The uterus is smooth in contour and has normal myometrial echogenicity. No visible fibroid. Nabothian cysts at the cervix. Adnexa: Both ovaries are visualized. There is normal color flow to the adnexa. There is no ovarian torsion. There is no pelvic ascites or fluid collection. Right ovary measures 3.4 x 2.5 x 1.9 cm. 8.4 mL Left ovary measures 3.6 x 2.2 x 2.1 cm. 8.7 mL US/US pelvic and transvaginal IMPRESSION: Normal ultrasound of pelvis. Electronically signed by: Chino Hernandez MD 04/09/2024 10:08 PM EDT
[2024-04-09 20:31] VITALS: BP 135/90; PULSE 86; RESP 18; TEMP 36.9; O2SAT 99; BMI 24.5
--- NOTE | 2024-04-09 20:36 | ED_ITS ---
HPI - Female Genitourinary General Chief complaint: General Medical Stated complaint: L arm numbness/Menstrual for 4 mos Time Seen by Provider: 04/10/24 00:39 Source: patient and family Mode of arrival: ambulatory Limitations: no limitations History of Present Illness ED Provider: Dr. Gomez HPI Narrative: Patient has norplant in place and has been bleeding for 4 weeks. Today she got pain in the arm that has the hormone implants, her eyes became foggy but she did not pass out. She presents because of the arm pain and the bleeding. Related Data Home Medications ?Medication ?Instructions ?Recorded ?Confirmed oxcarbazepine 600 mg tablet 600 mg PO BEDTIME 04/13/23 10/05/23 (Trileptal) quetiapine 300 mg tablet (Seroquel) 300 mg PO BEDTIME 04/13/23 10/05/23 etonogestrel 68 mg subdermal subdermal 10/05/23 10/05/23 implant (Nexplanon) lisdexamfetamine 30 mg capsule 30 mg PO QAM 10/05/23 10/05/23 (Vyvanse) Allergies Allergy/AdvReac Type Severity Reaction Status Date / Time No Known Allergies Allergy Verified 04/09/24 20:38 Review of Systems 2 Review of Systems: Yes all other systems are reviewed and are negative Neurologic: Denies Sensory deficit (Neuro) PMFSH Past Medical History Medical History Screening for diabetes mellitus (DM) Flat feet, bilateral Annual physical exam Juvenile absence epilepsy Hx of substance abuse Depression, major, in partial remission Family History Family History Mother Lung cancer metastatic to brain Father No problems noted. Social History Social History Housing: Other Alcohol intake: current Alcohol intake frequency: a few times a month Alcohol type: beer Patient Tobacco Use Status: Current everyday Tobacco user Tobacco use type: Smokeless Tobacco Smoked in Last 30 Days: No e-Cigarette/Vaping Use: Currently Using Second Hand Smoke Exposure: Yes Use of substances other than those prescribed or required for medical reasons: Yes Substance Use Type: Marijuana Substance Use Frequency: Daily Advance Directives: No Advance Directives Information Provided: No Do you have a plan to hurt others: No Plan Patient : No service: No Current occupational status: unemployed and student 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 Cognitive needs: No Hearing needs: No Vision needs: Yes Physical Exam 2 Vital Signs: Vital Signs: Last Vital Signs Temp 98.7 F 04/09/24 23:45 Pulse 83 04/09/24 23:45 Resp 16 04/09/24 23:45 BP 127/87 04/09/24 23:45 Pulse Ox 100 04/09/24 23:45 O2 Del Method Room Air 04/09/24 23:45 BMI result Body Mass Index 24.5 Const: Other: very thin female in no acute distress General: healthy appearing Nutritional Appearance: underweight O rientation/consciousness: oriented to person and patient oriented x3 L imitations: no limitations HEENT: Head: Yes normal to inspection Ears: external ears normal General nose exam: Normal external nose present Mouth: Normal oral and palatal mucosa present and oropharynx normal Throat: Yes posterior oropharynx normal Eyes: General: appearance normal, both eyes and all related structures Neck: Other: supple Neck: Yes normal visual inspection Chest: Chest palpation & inspection: normal inspection of the chest Resp: Auscultation: clear to auscultation bilaterally Cardio: Jugular venous distension: no JVD Rate: regular rate Rhythm: r egular rhythm Heart sounds: S1 normal heart sound present and S2 normal heart sound present GI: Inspection: Yes normal to inspection Palpation (GI): Soft to palpation, nontender and No hepatosplenomegaly present Auscultation: normal bowel sounds : General: Yes no CVA tenderness Back/Spine/Pelvis: Back: no CVA tenderness Skin: General skin exam: no rashes or lesions noted Neuro: General: oriented to person and patient oriented x3 Cranial nerves: Yes CN's II-XII intact bilaterally Motor exam (neuro): 5/5 motor strength present throughout Sensory Exam: No Sensory deficit (Neuro) Extrem: Other: good pulses, no edema, no erythema, no lymphadenopathy, no fluctuance Psych: Appearance: grossly normal Course Course Course Narrative: This is a Rapid Medical Examination (RME) performed by Irene Mak PA-C in triage. Full HPI, ROS, assessment and treatment plan per primary provider in the Main ED. 23 yo female with history of bipolar, depression, hx IVDA presents to the ER for evaluation of vaginal bleeding for the last 4 months. waxes and wanes with heaviness, sometimes light and sometimes very heavy. endorses lightheadedness, and feeling like she was going to pass out when driving today with blurred vision. has the nexplanon with pain at the site, has had it for 2 years. Plan: lab workup, pelvic u/s Reevaluation(s) Reevaluation #1: Patient with normal HCT, normal pelvic us, arm with no evidence of clot or infection will dc home Time: 00:55 Medical Decision Making Differential Diagnosis Differential Diagnoses: The differential diagnosis associated with the presentation includes (near syncope, cellulitis, arm abscess, DVT, vascular clot) Admission/Observation Consideration of admission/observation: Escalation of care including admission/observation considered (upon arrival patient considered for admission) Lab Data 04/09/24 20:52 04/09/24 20:52 Labs: Lab Results 04/09/24 Range/Units 20:52 WBC 11.2 H (4.8-10.8) X10*3/uL RBC 4.62 (4.20-5.50) X10*6/uL Hgb 14.1 (12.0-16.0) g/dl Hct 40.4 (37.0-47.0) % MCV 87.4 (80.0-98.0) fL MCH 30.5 (27.0-33.0) pg MCHC 34.9 (31.0-35.0) g/dl RDW 12.8 (11.0-16.0) % Plt Count 311 (160-400) X10*3/uL MPV 9.5 (9.4-12.3) fL Immature Gran % (Auto) 0.4 (0.0-0.4) % Neut % (Auto) 61.8 (45-73) % Lymph % (Auto) 28.2 (20-40) % Cache % (Auto) 8.3 (2-11) % Eos % (Auto) 0.5 (0-4) % Baso % (Auto) 0.8 (0-2) % Lymph # (Auto) 3.2 (1.2-4.9) X10*3/uL Cache # (Auto) 0.9 (0.1-1.2) X10*3/uL Eos # (Auto) 0.1 (0.0-0.4) X10*3/uL Baso # (Auto) 0.1 (0.0-0.2) X10*3/uL Abs Immat Gran (auto) 0.05 H (0.00-0.03) X10*3/uL Absolute Neuts (auto) 6.9 (2.0-8.3) x10*3/uL Absolute Nucleated RBC 0.000 (0.0-0.012) X10*3/uL Nucleated RBC % (auto) 0.0 (0.0-0.2) /100WBC Sodium 141 (135-145) mmol/L Potassium 4.0 (3.3-5.1) mmol/L Chloride 108 (96-108) mmol/L Carbon Dioxide 25 (22-29) mmol/L Anion Gap 12 (12-20) BUN 6 L (9-16) mg/dL Creatinine 0.80 (0.5-1.4) mg/dL Estim Creat Clear Calc 98.3 Estimated GFR > 60 Random Glucose 99 (60-115) mg/dL Calcium 9.4 (8.4-10.2) mg/dL Magnesium 2.0 (1.6-2.6) mg/dL Total Bilirubin 0.6 (0.0-1.0) mg/dL Direct Bilirubin 0.2 (0.0-0.5) mg/dL AST 16 (5-31) U/L ALT 12 (0-31) U/L Alkaline Phosphatase 47 (39-117) U/L Total Protein 6.9 (6.5-8.0) g/dL Albumin 4.6 (3.5-5.0) g/dL Urine Color Yellow Urine Appearance Clear Urine pH 6.5 (5.0-9.0) Ur Specific [place] 1.010 (1.005-1.025) Urine Protein Negative (Neg-Trace) mg/dL Urine Glucose (UA) Negative (Negative) mg/dL Urine Ketones Negative (Negative) mg/dL Urine Blood Negative (Negative) Urine Nitrite Negative (Negative) Ur Leukocyte Esterase Negative (Negative) Urine Test NEGATIVE (NEGATIVE) Radiology Impression Discussion of test interpretation with radiology: I have reviewed the radiologist's reading. (normal pelvic US) Independent Historian Clinical information obtained from an independent historian. History obtained from or confirmed by: Parent Prescription Management I considered prescription management with: Antibiotic (no UTI on UA will not give abx) Chronic Conditions Patient?s care impacted by: Other (psychiatric illness) Discharge Plan Discharge Clinical Impression: Near syncope, Arm pain, DUB (dysfunctional uterine bleeding) Patient Disposition: Home, Self-Care Instructions: Dysfunctional Uterine Bleeding (ED), Near Syncope (ED) Prescriptions: No Action quetiapine [Seroquel] 300 mg tablet 300 mg PO BEDTIME oxcarbazepine [Trileptal] 600 mg tablet 600 mg PO BEDTIME lisdexamfetamine [Vyvanse] 30 mg capsule 30 mg PO QAM Nexplanon 68 mg implant subdermal Referrals: Yonis Steward PA-C [Primary Care Provider] - 3 days Print Language: Sami
[2024-04-09 20:57] LABS: MANUAL DIFF FLAG NO
[2024-04-09 21:00] LABS: Appearance Urine Clear; Basophils Absolute Auto 0.1 X10*3/uL (0.0-0.2); Basophils Percent Auto 0.8 % (0-2); Color Urine Yellow; Eosinophils Absolute Auto 0.1 X10*3/uL (0.0-0.4); Eosinophils Percent Auto 0.5 % (0-4); Glucose Urine UA Negative (Negative); Hematocrit 40.4 % (37.0-47.0); Hemoglobin 14.1 g/dl (12.0-16.0); Imm Gran Abs Auto 0.05 X10*3/uL (0.00-0.03); Imm Gran Pct Auto 0.4 % (0.0-0.4); Leukocyte Esterase Urine Negative (Negative); Lymphocytes Absolute Auto 3.2 X10*3/uL (1.2-4.9); Lymphocytes Percent Auto 28.2 % (20-40); Mean Corpuscular HGB Conc 34.9 g/dl (31.0-35.0); Mean Corpuscular Hemoglobin 30.5 pg (27.0-33.0); Mean Corpuscular Volume 87.4 fL (80.0-98.0); Mean Platelet Volume 9.5 fL (9.4-12.3); Monocytes Absolute Auto 0.9 X10*3/uL (0.1-1.2); Monocytes Percent Auto 8.3 % (2-11); Neutrophils Absolute Auto 6.9 x10*3/uL (2.0-8.3); Neutrophils Percent Auto 61.8 % (45-73); Nitrite Urine Negative (Negative); PH 6.5 (5.0-9.0); Platelet Count 311 X10*3/uL (160-400); Red Blood Count 4.62 X10*6/uL (4.20-5.50); Red Cell Distribution Width 12.8 % (11.0-16.0); Urine Blood Negative (Negative); Urine Ketones Negative (Negative); Urine Protein Negative (Neg-Trace); White Blood Count 11.2 X10*3/uL (4.8-10.8)
[2024-04-09 21:03] LABS: UPreg QC Valid YES; Urine Pregnancy NEGATIVE (NEGATIVE)
[2024-04-09 21:16] LABS: Alanine Aminotransferase 12 U/L (0-31); Albumin Level 4.6 g/dL (3.5-5.0); Alkaline Phosphatase 47 U/L (39-117); Anion Gap 12 (12-20); Aspartate Amino Transferase 16 U/L (5-31); Bilirubin Direct 0.2 mg/dL (0.0-0.5); Bilirubin Total 0.6 mg/dL (0.0-1.0); Blood Urea Nitrogen 6 mg/dL (9-16); Calcium 9.4 mg/dL (8.4-10.2); Carbon Dioxide 25 mmol/L (22-29); Chloride 108 mmol/L (96-108); Creatinine Clr Calc Pharmacy 98.3; Estimated Glomerular Filt Rate > 60; Glucose Random 99 mg/dL (60-115); Sodium 141 mmol/L (135-145); Total Protein 6.9 g/dL (6.5-8.0)
[2024-04-09 23:45] VITALS: BP 127/87; PULSE 83; RESP 16; TEMP 37.1; O2SAT 100
--- NOTE | 2024-04-10 00:31 | PC.NURSE ---
pt and mother upset with wait time. requesting to leave
[2024-04-10 01:23] VITALS: BP 131/90; PULSE 82; RESP 16; TEMP 37.1; O2SAT 96
[2024-04-10 01:39] VITALS: BP 131/90; PULSE 82; RESP 16; TEMP 37.1; O2SAT 96
== END 2024-04-10 01:40 | disposition home or self-care (01) ==
PROVIDERS: Physician Assistant; Emergency Provider Emergency Medicine; PCP Physician Assistant
DX: R55 Syncope and collapse (principal); M79.602 Pain in left arm; N93.8 Other specified abnormal uterine and vaginal bleeding; R10.2 Pelvic and perineal pain; Z79.899 Other long term (current) drug therapy
CPT/HCPCS: 36415; 76830; 76856; 80048; 80076; 81003; 81025; 83735; 85025; 99284

== ENCOUNTER 2024-04-11 11:25 | Outpatient (AMB) | payer OTHER, SELFPAY ==
[2024-04-11 11:32] VITALS: BP 92/72; PULSE 118; O2SAT 99; BMI 17.2
--- NOTE | 2024-04-11 11:32 | A.OFFPC_ITS ---
Vital Signs 04/11/24 11:32 Height 5 ft 5 in Weight 103 lb 4 oz BMI 17.2 BP 92/72 Blood Pressure Location Lt brachial Position Sitting Pulse 118 H Pulse Source Pulse Oximeter Pulse Oximetry (%) 99 Oxygen Delivery Method Room Air Intake Visit Reasons: L arm numbness/Menstrual for 4 mons 04/09 Intake Note: Patient is here to follow-up after a [place] [facility] [place], Arm pain, DUB on 04/09/24. Stable Helper Required: No Accompanied by: Father Allergies No Known Allergies Allergy (Verified 04/11/24 11:59) Medication List - Last Reconciled 04/11/24 by Yonis Steward PA-C clonidine HCl 0.1 mg PO BID PRN etonogestrel (Nexplanon) subdermal fluoride (sodium) 1.1% (Denta 5000 Plus) appl PO fluticasone propionate 50 mcg/actuation intranasal lisdexamfetamine (Vyvanse) 30 mg PO QAM oxcarbazepine (Trileptal) 600 mg PO BEDTIME quetiapine (Seroquel) 300 mg PO BEDTIME Tobacco use date assessed: 08/03/23 Dental Screening Dental Screen Date: 08/03/23 HPI L arm numbness/Menstrual for 4 mons 04/09 HPI Details Patient is a 23-year-old female here today for ER follow-up visit. Patient was seen at the ER on April 09 for acute right arm pain, near syncopal episode. Workup while the ER occluding labs was negative. She was also seen previously at urgent care for acute strep throat and another episode of a scalp rash over the right side of her head that was thought to be shingles. She also reports having a menstrual period over the last 4 months. Of note CBC while in the ER without any significant anemia. 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 [facility] Medical History Screening for diabetes mellitus (DM) Flat feet, bilateral Annual physical exam Juvenile absence epilepsy Hx of substance abuse Depression, major, in partial remission Family History Mother Lung cancer metastatic to brain Father No problems noted. 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 1. Little interest or pleasure in doing things: not at all 2. Feeling down, depressed, or hopeless: not at all 3. Trouble falling or staying asleep, or sleeping too much: not at all 4. Feeling tired or having little energy: nearly every day 5. Poor appetite or overeating: several days 6. Feeling bad about yourself - or that you are a failure or have let yourself or your family down: not at all 7. Trouble concentrating on things, such as reading the newspaper or watching television: several days 8. Moving or speaking so slowly that other people could have noticed. Or the opposite - being so fidgety or restless that you have been moving around a lot more than usual: not at all 9. Thoughts that you would be better off or of hurting yourself in some way: not at all Total score: 5 Depression Screening Interpretation: Positive Depression Screening Follow-up: Existing condition Depression Screening Done: Yes 85796 - PHQ-9 Billing: Yes Source: Developed by Drs. Baltazar Granados, Estelle Taylor, David Brandt and colleagues, with an educational izabel from [employer]. Thrive Questionnaire Date Thrive assessed: 04/11/24 I am a: Patient What is your living situation today?: I have a steady place to live Within the past 12 months, did the food you bought not last and you didn't have the money to get more?: Never true Within the past 12 months, did you worry whether your food would run out before you got money to buy more?: Never true Do you have trouble paying for medicines?: No Do you have trouble getting transportation to medical appointments?: No Do you have trouble paying your heating and electricity bill?: No Do you have trouble taking care of your child, family member or friend?: No Do you have trouble with day-to-day activities such as bathing, preparing meals, shopping, managing finances, etc.?: No Are you currently unemployed and looking for a job?: I choose not to answer this question Are you interested in more education?: Yes Please select the resources that you would like help with: None Currently or been in a relationship where the following occur: I choose not to answer THRIVE Score: 0 AUDIT C Alcohol Use Questionnaire (AUDIT-C) 1. How often do you have a drink containing alcohol?: Monthly or less 2. How many drinks containing alcohol do you have on a typical day when you are drinking?: 1 or 2 3. How often do you have six or more drinks on one occasion?: Never Total Score: 1 MARY-7 AMB Questionnaire MARY-7 Date MARY - 7 assessed: 04/11/24 Feeling nervous, anxious, or on edge: 2 = More than half the days Not being able to stop or control worryin = Nearly every day Worrying too much about different things: 2 = More than half the days Trouble relaxin = More than half the days Being so restless that it is hard to sit still: 1 = Several days Becoming easily annoyed or irritable: 1 = Several days Feeling afraid as if something awful might happen: 1 = Several days Total MARY-7 score (0-4 normal; 5-9 mild; 10-14 moderate; 15-21 severe): 12 Source: Developed by Drs. Baltazar Granados, Estelle Taylor, David Brandt and colleagues, with an educational izabel from [employer]. MARY-7 Assessment Billing MARY-7 Assessment Tool: MARY-7 Assessment 32299 Review of Systems Const Denies headache(s) Eyes Denies loss of vision ENT Denies vertigo, Denies dizziness, Denies headache(s) and Reports sore throat Card Denies chest pain, Denies leg edema and Denies lightheadedness Resp Denies cough, Denies hemoptysis and Denies wheezing GI Denies abdominal pain, Denies melena, Denies constipation, Denies diarrhea and Denies vomiting Denies urinary frequency, Denies dysuria and Denies urinary urgency Musc Denies arthralgias, Denies joint swelling, Denies numbness and Denies tingling Neuro Denies Abnormal speech present, Denies behavioral changes, Denies vertigo, Denies dizziness, Denies headache(s), Denies loss of vision, Denies memory loss, Denies numbness and Denies tingling Psych Denies anxiety, Denies behavioral changes, Denies depression, Denies memory loss and Denies panic attacks Abilio/Lymph Denies easy bleeding and Denies easy bruising Aller/Immun Denies wheezing Physical exam (Primary Care) Vital Signs: Last Vital Signs Pulse 118 H 04/11/24 11:32 BP 92/72 04/11/24 11:32 Pulse Ox 99 04/11/24 11:32 Oxygen Delivery Method Room Air 04/11/24 11:32 BMI result Body Mass Index 17.2 Tobacco/Smoking Status: Tobacco use Status Tobacco use date assessed 08/03/23 04/11/24 11:34 Patient Tobacco Use Status Current everyday Tobacco 04/11/24 11:34 Tobacco use type Smokeless Tobacco 04/11/24 11:34 e-Cigarette/Vaping Use Currently Using 04/11/24 11:34 PHQ-9: PHQ-9 Score PHQ-9: Total score 5 04/11/24 12:02 Depression Screening Interpretation: Positive Depression Screening Follow-up: Existing condition Thrive Assessment: Date of Thrive Assessment Date Thrive assessed 04/11/24 04/11/24 11:34 Currently or been in a relationship where the following occur: I choose not to answer Const General: healthy appearing, no acute distress, alert and awake Nutritional Appearance: well nourished Orientation/consciousness: oriented to person, oriented to place and oriented to time HENMT Ears: TM's normal bilaterally General nose exam: Normal nasal mucous membranes and turbinates present Eyes Conjunctivae: conjunctivae normal Sclerae: sclerae normal Pupils: Equal, round and reactive pupils present Neck Neck: Yes no lymphadenopathy and Yes no JVD Thyroid: Thyroid normal Carotids: no bruits Resp Effort & Inspection: normal respiratory effort and not tachypneic Auscultation: no crackles, no rales, no rhonchi and no wheezes Cardio Rate: regular rate Rhythm: regular rhythm Heart sounds: no murmurs and normal S1 and S2 GI Palpation (GI): Soft to palpation, nontender, no hepatomegaly and no splenomegaly Auscultation: normal bowel sounds Skin General skin exam: no rashes or lesions noted and dry skin Neuro General: oriented to person, oriented to place and oriented to time Cranial nerves: Yes Equal, round and reactive pupils present Speech: No Abnormal speech present Gait exam (Neuro): Normal gait present Motor exam (neuro): no tremor noted Extrem Right upper extremity: full ROM Left upper extremity: full ROM Right lower extremity: full ROM; no edema Left lower extremity: full ROM; no edema Psych Mental Status: mental status grossly normal Speech and movement: Normal speech and movement present Affect: normal affect Attitude: cooperative Thought process: Normal thought process present Assessment and Plan Assessment & Plan (1) DUB (dysfunctional uterine bleeding): Code(s): N93.8 - Other specified abnormal uterine and vaginal bleeding Plan: As per HPI patient reports dysfunctional uterine bleeding as she has had her menstrual period over the last 4 months. She believes this is secondary to her Implanon control and will reach out to her trucking supervisor provider to discuss perhaps having this removed and trying a different control method. Fortunately CBC on most recent labs without any significant anemia. (2) Depression, major, in partial remission: Code(s): F32.4 - Major depressive disorder, single episode, in partial remission Qualifiers: Major depression recurrence: recurrent Qualified Code(s): F33.41 - Major depressive disorder, recurrent, in partial remission Plan: Patient's PHQ-9 score positive for depression which has been existing condition for her. At this time she is speaking with a mental therapist and has a psychiatrist who manages her medication. (3) Low weight: Code(s): R63.6 - Underweight (4) Increased urinary frequency: Code(s): R35.0 - Frequency of micturition Plan: Patient does report some increased urinary frequency, most recent urinalysis without any signs of UTI, and labs without signs of diabetes. Orders: Orders Progesterone Today N93.8 - Other specified abnormal uterine and vaginal bleeding UA CC w/rflx Micro + Cult Today R30.0 - Dysuria, R35.0 - Frequency of micturition HIV Ab/Ag Today R63.6 - Underweight, Z11.3 - Encounter for screening for infections with a predominantly sexual mode of transmission Complete Blood Count Auto Diff Today N93.8 - Other specified abnormal uterine and vaginal bleeding TSH reflex Free T4 Today R63.6 - Underweight Coding Level of Care Code Est Pt Level 4 (67144) Diagnoses DUB (dysfunctional uterine bleeding) N93.8 Recurrent major depressive disorder, in partial remission F33.41 Major depression recurrence: recurrent Low weight R63.6 Increased urinary frequency R35.0 Additional Codes MARY-7 Assessment Billing - MARY-7 Assessment Tool: MARY-7 Assessment [id number] ([id number])
== END 2024-04-11 12:26 | disposition home or self-care (01) ==
PROVIDERS: PCP Physician Assistant; Visit Provider Physician Assistant
DX: N93.8 Other specified abnormal uterine and vaginal bleeding (principal); F33.41 Major depressive disorder, recurrent, in partial remission; R63.6 Underweight; R35.0 Frequency of micturition

== ENCOUNTER → 2024-04-11 11:25 | Outpatient (BNVA) | payer OTHER, SELFPAY | PROVIDERS: PCP Physician Assistant; Visit Provider Physician Assistant | DX: N93.8 Other specified abnormal uterine and vaginal bleeding (principal); F33.41 Major depressive disorder, recurrent, in partial remission; R63.6 Underweight; R35.0 Frequency of micturition | CPT/HCPCS: 96127; 99212 ==

== ENCOUNTER 2024-04-15 13:11 | Outpatient (REF) | payer OTHER, SELFPAY | END 2024-04-15 13:12 | disposition home or self-care (01) | LOC: HO.LNP 13:11 | PROVIDERS: PCP Physician Assistant; Visit Provider Advanced Practice Midwife | DX: N94.89 Other specified conditions associated with female genital organs and menstrual cycle (principal); N92.1 Excessive and frequent menstruation with irregular cycle; Z97.5 Presence of (intrauterine) contraceptive device | CPT/HCPCS: 87086; 99212 ==

== ENCOUNTER 2024-04-15 13:11 | Outpatient (AMB) | payer OTHER, SELFPAY ==
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
[2024-04-15 13:26] VITALS: BMI 17.1
== END 2024-04-15 14:28 | disposition home or self-care (01) ==
PROVIDERS: PCP Physician Assistant; Visit Provider Advanced Practice Midwife
DX: Z62.810 Personal history of physical and sexual abuse in childhood (principal); N92.1 Excessive and frequent menstruation with irregular cycle; Z97.5 Presence of (intrauterine) contraceptive device
CPT/HCPCS: 99213

== ENCOUNTER 2024-04-16 13:48 | Outpatient (REF) | payer OTHER, SELFPAY ==
[2024-04-16 14:10] LABS: MANUAL DIFF FLAG NO
[2024-04-16 15:51] LABS: Basophils Absolute Auto 0.1 X10*3/uL (0.0-0.2); Eosinophils Absolute Auto 0.1 X10*3/uL (0.0-0.4); Eosinophils Percent Auto 0.6 % (0-4); Hematocrit 40.1 % (37.0-47.0); Hemoglobin 13.8 g/dl (12.0-16.0); Imm Gran Abs Auto 0.03 X10*3/uL (0.00-0.03); Imm Gran Pct Auto 0.4 % (0.0-0.4); Lymphocytes Percent Auto 23.5 % (20-40); Mean Corpuscular HGB Conc 34.4 g/dl (31.0-35.0); Mean Corpuscular Hemoglobin 30.1 pg (27.0-33.0); Mean Corpuscular Volume 87.6 fL (80.0-98.0); Mean Platelet Volume 10.2 fL (9.4-12.3); Monocytes Absolute Auto 0.7 X10*3/uL (0.1-1.2); Monocytes Percent Auto 8.1 % (2-11); Neutrophils Absolute Auto 5.6 x10*3/uL (2.0-8.3); Neutrophils Percent Auto 66.4 % (45-73); Platelet Count 288 X10*3/uL (160-400); Red Blood Count 4.58 X10*6/uL (4.20-5.50); White Blood Count 8.4 X10*3/uL (4.8-10.8)
[2024-04-16 16:03] LABS: Appearance Urine Turbid; Color Urine Yellow; Glucose Urine UA Negative (Negative); Leukocyte Esterase Urine Negative (Negative); Nitrite Urine Negative (Negative); PH 8.5 (5.0-9.0); UMIC TRIGGER UACC YES; Urine Blood Moderate (2+) (Negative); Urine Ketones Negative (Negative); Urine Protein Negative (Neg-Trace)
[2024-04-16 16:48] LABS: Bacteria Urine Trace (None Seen); Hyaline Casts Urine 0-2 /LPF (0-2); Other Crystals Urine Present; RBC Urine 0-2 /HPF (0-2); WBC Urine 0-5 /HPF (0-5)
[2024-04-17 08:34] LABS: HIV AB/AG Nonreactive (Nonreactive); HIV Num 1 0.04 S/CO (0.00-0.99)
[2024-04-24 14:58] LABS: Progesterone 0.8 ng/mL
== END 2024-04-16 13:49 | disposition home or self-care (01) ==
LOC: HO.LAB 13:48
PROVIDERS: PCP Physician Assistant; Visit Provider Physician Assistant
DX: N93.8 Other specified abnormal uterine and vaginal bleeding (principal); Z11.3 Encounter for screening for infections with a predominantly sexual mode of transmission; R63.6 Underweight
CPT/HCPCS: 36415; 81001; 81003; 84144; 84443; 85025; 87389

== ENCOUNTER 2024-04-25 10:50 | Outpatient (AMB) | payer OTHER, SELFPAY ==
--- NOTE | 2024-04-25 11:11 | A.OFFVIS_ITS ---
VS Expanded 04/25/24 11:12 Height 5 ft 5 in Weight 105 lb 6.2 oz BMI 17.5 Intake Visit Reasons: Eating disorder/LVM Allergies No Known Allergies Allergy (Verified 04/15/24 13:26) Nutrition Presentation Details: Pt presents for MNT f/u for eating disorder Pt admits to restarting to skip meals Verbalizes fear of gaining too much weight Reports following up with mental health care provider Today will reinforce importance of balancing meals, including pastries as part of meal planning BS Monitoring Most Recent Diabetes Results: Creatinine 0.80 mg/dL (0.5-1.4) 04/09/24 Blood Urea Nitrogen 6 mg/dL (9-16) L 04/09/24 Sodium 141 mmol/L (135-145) 04/09/24 Potassium 4.0 mmol/L (3.3-5.1) 04/09/24 Chloride 108 mmol/L (96-108) 04/09/24 Carbon Dioxide 25 mmol/L (22-29) 04/09/24 Calcium 9.4 mg/dL (8.4-10.2) 04/09/24 AST 16 U/L (5-31) 04/09/24 ALT 12 U/L (0-31) 04/09/24 Total Protein 6.9 g/dL (6.5-8.0) 04/09/24 Albumin 4.6 g/dL (3.5-5.0) 04/09/24 [facility] Medical History Screening for diabetes mellitus (DM) Flat feet, bilateral Annual physical exam Juvenile absence epilepsy Hx of substance abuse Depression, major, in partial remission Family History Mother Lung cancer metastatic to brain Father No problems noted. 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 [employer] Cognitive needs: No Hearing needs: No Vision needs: Yes Female Reproductive History Menstrual Age of Menarche: 13 Assessment & Plan Assessment & Plan (1) Eating disorder: Code(s): F50.9 - Eating disorder, unspecified Category: Medical Plan: Wt: 46.8 Kg ( 12/19/23 at PCP ), 48 kg (03/16), 49.5 (05/16) Est kcal needs as per MSJ: 1500 + gradual increase calories by 1000- 2000 every 3 days to promote healthy weight gain (40% carb, 30% protein/fat) Est fluid needs as per 30 ml/d: 1500 Est prot per day as per 1.2 g/kg bw: min 56g Recommend fiber intake : 8-10 g per day and gradually increase to 25-28 g per day for women and 35-38 g for men or as tolerated Recommend sodium intake per day : 2000 mg Educated patient on: ( R = reviewed V = verbalizes understanding N/R = needs review N/A = not applicable * Balancing meals, increasing nutrients/vitamin via fat/protein/starches * increasing calories to promote weight gain - relationship of increased calories to current body weight * Balancing sugars/protein during the day with increased appetite * importance of hydration : R * role of protein in diet: R Patient Instructions: Breakfast/lunch dinner: including at least 3 of the 5 food groups in each meal 2 starches (ex 2 slice of bread or croissant or bagel or 2 cups of cereal of choice) 2 -3 protein ( 1 egg/1 sausage/1 cheese or protein shake or 1 c cottage cheese full fat) 1 dairy (1 c full fat milk or 1 cup of yogurt full fat ,ok flavored ) 1-2 fats (1 tbsp of 2 tbsp peanut butter or butter or 2 sbacon ) 2 vegetables snacks in between meals 1-2 protein 1-2 starches/fruit 1-2 fat (example crackers with peanut butter and juice/nuggets and smoothie / chips with hummus and hank milk /cereal with nuts and milk Coding Level of Care Code Nutr Indiv Subseq (79054) Diagnoses Eating disorder F50.9 Time Spent (min) 20
[2024-04-25 11:12] VITALS: BMI 17.5
== END 2024-04-25 11:38 | disposition home or self-care (01) ==
PROVIDERS: PCP Physician Assistant; Visit Provider Dietitian, Registered
DX: F50.9 Eating disorder, unspecified (principal)

== ENCOUNTER → 2024-04-25 10:50 | Outpatient (BNVA) | payer OTHER, SELFPAY | PROVIDERS: PCP Physician Assistant; Visit Provider Dietitian, Registered | DX: F50.9 Eating disorder, unspecified (principal); Z71.3 Dietary counseling and surveillance; Z68.1 Body mass index [BMI] 19.9 or less, adult | CPT/HCPCS: 97803 ==

== ENCOUNTER 2024-06-05 09:18 | Outpatient (AMB) | payer OTHER, SELFPAY ==
--- NOTE | 2024-06-05 09:31 | MHC.AMNUTRGE ---
VS Expanded 06/05/24 09:32 Height 5 ft 5 in Weight 108 lb 7.479 oz BMI 18.0 Intake Visit Reasons: underweight Allergies No Known Allergies Allergy (Verified 04/15/24 13:26) Nutrition Presentation Details: Pt presents for MNT f/u Pt reports including nutrient dense foods in her meals c BS Monitoring Most Recent Diabetes Results: Creatinine 0.80 mg/dL (0.5-1.4) 04/09/24 Blood Urea Nitrogen 6 mg/dL (9-16) L 04/09/24 Sodium 141 mmol/L (135-145) 04/09/24 Potassium 4.0 mmol/L (3.3-5.1) 04/09/24 Chloride 108 mmol/L (96-108) 04/09/24 Carbon Dioxide 25 mmol/L (22-29) 04/09/24 Calcium 9.4 mg/dL (8.4-10.2) 04/09/24 AST 16 U/L (5-31) 04/09/24 ALT 12 U/L (0-31) 04/09/24 Total Protein 6.9 g/dL (6.5-8.0) 04/09/24 Albumin 4.6 g/dL (3.5-5.0) 04/09/24 [facility] Medical History Screening for diabetes mellitus (DM) Flat feet, bilateral Annual physical exam Juvenile absence epilepsy Hx of substance abuse Depression, major, in partial remission Family History Mother Lung cancer metastatic to brain Father No problems noted. 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 [employer] Cognitive needs: No Hearing needs: No Vision needs: Yes Female Reproductive History Menstrual Age of Menarche: 13 Assessment & Plan Assessment & Plan (1) Eating disorder: Code(s): F50.9 - Eating disorder, unspecified Category: Medical Plan: Wt: 46.8 Kg ( 12/19/23 at PCP ), 48 kg (03/16), 48 (05/16), 49 (06/16) Est kcal needs as per MSJ: 1500 + gradual increase calories by 1000- 2000 every 3 days to promote healthy weight gain (40% carb, 30% protein/fat) Est fluid needs as per 30 ml/d: 1500 Est prot per day as per 1.2 g/kg bw: min 56g Recommend fiber intake : 8-10 g per day and gradually increase to 25-28 g per day for women and 35-38 g for men or as tolerated Recommend sodium intake per day : 2000 mg Educated patient on: ( R = reviewed V = verbalizes understanding N/R = needs review N/A = not applicable Balancing meals, increasing nutrients/vitamin via fat/protein/starches increasing calories to promote weight gain - relationship of increased calories to current body weight Balancing sugars/protein during the day with increased appetite importance of hydration : R, V role of protein in diet: R Patient Instructions: Continue working on increasing portion of foods currently consumed consider taking a daily multivitamin keep hydrated by having 100% fruit juices, milk, flavored milk , soups Coding Level of Care Code Nutr Indiv Subseq (06063) Diagnoses Eating disorder F50.9 Time Spent (min) 20
[2024-06-05 09:32] VITALS: BMI 18.0
== END 2024-06-05 09:45 | disposition home or self-care (01) ==
PROVIDERS: PCP Physician Assistant; Visit Provider Dietitian, Registered
DX: F50.9 Eating disorder, unspecified (principal)

== ENCOUNTER → 2024-06-05 09:18 | Outpatient (BNVA) | payer OTHER, SELFPAY | PROVIDERS: PCP Physician Assistant; Visit Provider Dietitian, Registered | DX: F50.9 Eating disorder, unspecified (principal); R63.6 Underweight; Z71.3 Dietary counseling and surveillance; Z68.1 Body mass index [BMI] 19.9 or less, adult | CPT/HCPCS: 97803 ==

== ENCOUNTER 2024-06-25 14:45 | Outpatient (AMB) | payer OTHER, SELFPAY ==
[2024-06-25 14:52] VITALS: BP 112/60; PULSE 94; O2SAT 100; BMI 18.7
--- NOTE | 2024-06-25 14:52 | A.OFFPC_ITS ---
Vital Signs 06/25/24 14:52 Height 5 ft 5 in Weight 112 lb 4 oz BMI 18.7 BP 112/60 Blood Pressure Location Lt brachial Position Sitting Pulse 94 Pulse Source Pulse Oximeter Pulse Oximetry (%) 100 Oxygen Delivery Method Room Air Intake Visit Reasons: PE Intake Note: Patient is here today for a physical. Racebook Writer Required: No Accompanied by: Self / Same As Patient Allergies No Known Allergies Allergy (Verified 06/25/24 14:57) Medication List - Last Reconciled 06/25/24 by Yonis Steward PA-C clonidine HCl 0.1 mg PO BID PRN etonogestrel (Nexplanon) subdermal fluoride (sodium) 1.1% (Denta 5000 Plus) appl PO fluticasone propionate 50 mcg/actuation intranasal lisdexamfetamine (Vyvanse) 30 mg PO QAM oxcarbazepine (Trileptal) 600 mg PO BEDTIME quetiapine (Seroquel) 300 mg PO BEDTIME Tobacco use date assessed: 08/03/23 Dental Screening Dental Screen Date: 08/03/23 HPI PE HPI Details Patient is a 24-year-old female here today for an annual physical.. Patient has a past medical history significant for ADHD, major depressive disorder, opiate use disorder. Currently at [employer] going to school full-time. 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 Will need MMR varicella and hepatitis-B titers. .. MDD: does see a psychiatrist and mental health therapist. He does have a history of the opiate use disorder and has been clean and sober from opiates over the last 2 years. She now has her license back in his driving. Emergency Room Specialist: Followed by [facility], recently had her Nexplanon removed and now feeling much better Vaccines: Up-to-date with COVID vaccine . Declines flu vaccine today. She is willing to get tetanus vaccine today. [facility] Medical History (Updated 06/26/24 @ 07:27 by Yonis Steward PA-C) Screening for diabetes mellitus (DM) Flat feet, bilateral Annual physical exam Hx of substance abuse Depression, major, in partial remission Family History Mother Lung cancer metastatic to brain Father No problems noted. 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 Cognitive needs: No Hearing needs: No Vision needs: Yes Female Reproductive History Menstrual Age of Menarche: 13 Questionnaire Thrive Questionnaire Date Thrive assessed: 04/11/24 I am a: Patient What is your living situation today?: I have a steady place to live Within the past 12 months, did the food you bought not last and you didn't have the money to get more?: Never true Within the past 12 months, did you worry whether your food would run out before you got money to buy more?: Never true Do you have trouble paying for medicines?: No Do you have trouble getting transportation to medical appointments?: No Do you have trouble paying your heating and electricity bill?: No Do you have trouble taking care of your child, family member or friend?: No Do you have trouble with day-to-day activities such as bathing, preparing meals, shopping, managing finances, etc.?: No Are you currently unemployed and looking for a job?: I choose not to answer this question Are you interested in more education?: Yes Please select the resources that you would like help with: None Currently or been in a relationship where the following occur: I choose not to answer THRIVE Score: 0 MARY-7 AMB Questionnaire MARY-7 Date MARY - 7 assessed: 04/11/24 Source: Developed by Drs. Baltazar Granados, Estelle Taylor, David Brandt and colleagues, with an educational izabel from [employer]. Review of Systems Const Denies body aches, Denies chills, Denies excessive sweating, Denies fatigue, Denies fever(s) and Denies headache(s) Eyes Denies blurry vision ENT Denies dysphagia, Denies vertigo, Denies dizziness, Denies headache(s), Denies hearing loss and Denies tinnitus Card Denies chest pain, Denies chest pain with activity, Denies syncope, Denies irregular heart rhythm and Denies dyspnea Resp Denies chest congestion, Denies cough, Denies hemoptysis, Denies dyspnea and Denies wheezing GI Denies abdominal pain, Denies melena, Denies hematochezia, Denies coffee ground emesis, Denies dysphagia, Denies diarrhea, Denies nausea and Denies vomiting Denies urinary frequency, Denies dysuria, Denies urinary hesitancy and Denies urinary urgency Musc Denies arthralgias, Denies limited range of motion, Denies muscle cramps and Denies muscle weakness Skin/Breast Denies rash and Denies skin ulcer Neuro Denies Abnormal speech present, Denies confusion, Denies vertigo, Denies dizziness, Denies syncope, Denies headache(s), Denies memory loss and Denies seizure-like activity Psych Denies anxiety, Denies confusion, Denies depression, Denies memory loss, Denies panic attacks and Denies paranoia Endo Denies excessive sweating, Denies fatigue, Denies flushing, Denies polydipsia and Denies polyuria Aller/Immun Denies wheezing Physical exam (Primary Care) Vital Signs: Last Vital Signs Pulse 94 06/25/24 14:52 BP 112/60 06/25/24 14:52 Pulse Ox 100 06/25/24 14:52 Oxygen Delivery Method Room Air 06/25/24 14:52 BMI result Body Mass Index 18.7 Tobacco/Smoking Status: Tobacco use Status Tobacco use date assessed 08/03/23 06/25/24 14:54 Patient Tobacco Use Status Current everyday Tobacco 06/25/24 15:01 Tobacco use type Smokeless Tobacco 06/25/24 15:01 e-Cigarette/Vaping Use Currently Using 06/25/24 15:01 Thrive Assessment: Date of Thrive Assessment Date Thrive assessed 04/11/24 06/25/24 14:54 Currently or been in a relationship where the following occur: I choose not to answer Const General: cooperative, comfortable, no acute distress, alert and awake; No confusion Orientation/consciousness: oriented to person, oriented to place, patient oriented x3 and No confusion HENMT Head: Yes normocephalic Ears: external ears normal and TM's normal bilaterally Face and sinus: No sinus tenderness Mouth: Normal oral and palatal mucosa present and tongue normal Teeth and gingiva: dentition normal and gingiva normal Throat: Yes posterior oropharynx normal, Yes tonsils normal and Yes uvula midline Eyes Conjunctivae: conjunctivae normal Sclerae: sclerae normal Pupils: Equal, round and reactive pupils present EOM: EOMs intact bilaterally Direct Ophthalmoscopy: No no photophobia Neck Neck: Yes no lymphadenopathy, No tender and Yes no JVD Thyroid: Thyroid normal Carotids: no bruits Chest Chest palpation & inspection: no tenderness Resp Effort & Inspection: normal respiratory effort, no audible wheezes, not labored and no stridor Auscultation: no crackles, no rales, no rhonchi and no wheezes Cardio Jugular venous distension: no JVD Rate: regular rate, not bradycardic and not tachycardic Rhythm: regular rhythm Bruits: no carotid bruits Peripheral pulses: Peripheral pulses 2+ throughout GI Inspection: Yes normal to inspection, No abdominal wall ecchymosis and No visible herniation Palpation (GI): Soft to palpation, nontender, no guarding, not rigid and No hepatosplenomegaly present Auscultation: normoactive bowel sounds General: Yes no CVA tenderness Back/Spine/Pelvis Back: no CVA tenderness and No back tenderness Cervical Spine: cervical ROM normal Thoracic/Lumbar Spine: thoracic and lumbar spine normal to inspection, straight leg raise negative bilaterally, No thoraco-lumbar ROM limited and No lumbar spinal tenderness Skin Lesions: no lesions Rashes: no rashes Wounds: no wounds Neuro General: oriented to person, oriented to place, patient oriented x3, CN's II-XI intact bilaterally and No confusion Cranial nerves: Yes Equal, round and reactive pupils present and Yes Normal accommodation reflex present Cognition (Neuro): normal cognition Speech: No Abnormal speech present Gait exam (Neuro): Normal gait present Motor exam (neuro): 5/5 motor strength present throughout Extrem Right upper extremity: full ROM; no cyanosis Left upper extremity: full ROM; no cyanosis Right lower extremity: no edema Left lower extremity: no edema Psych Appearance: grossly normal Mental Status: mental status grossly normal Affect: normal affect Attitude: cooperative Thought process: Normal thought process present Immunizations Boostrix Tdap 2.5 Lf unit-8 mcg-5 Lf/0.5 mL intramuscular syringe Performing Provider: Yonis Steward PA-C Performing Location: [facility] Administered by: CHIDI Rivero on 06/25/24 15:18 Dose Route Admin Location Dispensed Lot Number Expiration Date NDC Bi Technical Lead 0.5 mL IM Left Deltoid 0.5 mL [id number] 04/20/25 [id number] [employer] 2 VIS Given Date VIS Provided VIS Publication Date 06/25/24 Single Vaccine 21 Eligibility Eligibility Date Funding Source Not [facility] Eligible 06/25/24 Private Coding Level of Care Code Est Pt Prev Care [id number]) Diagnoses Annual physical exam Z00.00 Immune to varicella Z78.9 Need for MMR vaccine Z23 Hx of substance abuse F19.11 MDD (major depressive disorder), recurrent episode, moderate F33.1 Assessment & Plan Assessment & Plan (1) Annual physical exam: Code(s): Z00.00 - Encounter for general adult medical examination without abnormal findings Category: Medical Plan: As per HPI (2) Immune to varicella: Code(s): Z78.9 - Other specified health status Category: Medical Plan: As per HPI (3) Need for MMR vaccine: Code(s): Z23 - Encounter for immunization Category: Medical Plan: As per HPI (4) Hx of substance abuse: Code(s): F19.11 - Other psychoactive substance abuse, in remission Category: Medical Plan: As per HPI she has been sober from street drugs over the last 2 years. Now has her license back in his driving. She has a much better life at this point. (5) MDD (major depressive disorder), recurrent episode, moderate: Code(s): F33.1 - Major depressive disorder, recurrent, moderate Category: Medical Plan: Patient reports her mental health has been stable. She does see a mental health therapist and a psychiatrist whom manage her mental health medications. Orders: Orders Hepatitis B Surface Antibody 06/25/24 Z78.9 - Other specified health status TDaP Immunization 06/25/24 Z23 - Encounter for immunization, Z78.9 - Other specified health status MMR IgG Measles Mumps Rubella 06/25/24 Z23 - Encounter for immunization Varicella IgG Antibody 06/25/24 Z78.9 - Other specified health status
--- OUTSIDE RECORDS SUMMARY | 2024-07-02 15:02 | XMS_ITS | Data Portability ---
Author Organization [facility], [address] Address [address] [place] [address] Care Team Providers Care Research Executive Name Role Phone JUNG VALLEJO Primary Care Provider [phone] Assessment No assessment recorded. Plan of Treatment Reminders Order Date Submit Date Provider Last Modified By Organization Details Last Modified Time Details Appointments None recorded. Lab rapid strep group A, throat 2023 024 [place] _[facility], [address] [place], [address], 4 18:15:44 test, urine 2023 024 _[facility], [address] [place] [address], [address], 4 12:48:10 urinalysis, dipstick 2023 024 _[facility], [address] [place] [address], [address], 4 12:48:11 Referral None recorded. Procedures None recorded. Surgeries None recorded. Imaging None recorded. Medication Orders Ciloxan 0.3 % eye drops 2022 023 [id number], [address] [place], [address], 4 17:58:48 fluticasone propionate 50 mcg/actuati on nasal spray,suspe nsion 2023 024 [id number], [address] [facility] [place], [address], 18:14:49 valacyclovi r 1 gram tablet 2023 024 [id number], [address] [facility] [place], [address], 12:33:50 fluticasone propionate 50 mcg/actuati on nasal spray,suspe nsion 2023 024 [facility] #[id number], [address] [facility] [place], [address], 11:39:02 Patient TargetsNo targets recorded. Patient Instructions Encounter Date Encounter Id Patient Instructions Last Modified By Organization Details Last Modified Time 01/26/2023 [id number] subconjunctival hemorrhage: care instructions Not available 01/26/2023 17:43:20 Based on your presentation and exam, you are going diagnosed with a puncture wound and subconjunctival hemorrhage You should be seen again if you develop any of the following symptoms 1. Eye pain or pressure behind the eye. 2. Redness or significant swelling of the eyelid or around the eye 3. Headache 4. Fever > 100.5 5. No improvement in current symptoms in the next 1 week. Thank you for using [facility] today, please feel free to contact us with any questions or concerns. [email or web address] Not available 01/26/2023 17:43:14 02/29/2024 [id number] sore throat: car e instructions Not available 02/29/2024 18:14:47 03/04/2024 [id number] shingles: care instructions Not available 03/04/2024 13:42:54 03/18/2024 [id number] diarrhea: care instructions Not available 03/18/2024 12:48:08 tension headache : care instructions Not available 03/18/2024 12:48:08 06/16/2024 [id number] upper respirator y infection (cold): care instructions Not available 06/16/2024 11:06:07 Reason for Referral None Reported. Results Created Date Observation Date Name Description Value Unit Range Abnormal Flag Note LastModifiedBy Organization Detail LastModifiedTime 02/29/2002/29/2024 rapid strep group A, throa t Unknown Analyte negati ve Not Available joe scott [address] [place] [place], [address], 02/29/2024 18:10:37 02/29/2002/29/2024 rapid strep group A, throa t Unknown Analyte yes Not Available 2099_ robe [address] [place] [place], [address], 02/29/2024 18:10:37 03/18/2003/18/2024 urina lysis , dipst ick Unknown Analyte Yellow Not Available _ [address] [place], [address], 03/18/2024 12:35:04 03/18/2003/18/2024 urina lysis , dipst ick Unknown Analyte Slight ly Cloudy Not Available [facility] [address] [place], [address], 03/18/2024 12:35:04 03/18/2003/18/2024 urina lysis , dipst ick Unknown Analyte Negati ve Not Available [facility] [address] [place], [address], 03/18/2024 12:35:04 03/18/2003/18/2024 urina lysis , dipst ick Unknown Analyte Negati ve Not Available [facility] [address] [place], [address], 03/18/2024 12:35:04 03/18/20 24 03/18/2024 urina lysis , dipst ick Unknown Analyte Negati ve Not Available joe scott [address] [place], [address], 03/18/2024 12:35:04 03/18/20 24 03/18/2024 urina lysis , dipst ick Unknown Analyte 1.030 Not Available robe [address] [place], [address], 03/18/2024 12:35:04 03/18/20 24 03/18/2024 urina lysis , dipst ick Unknown Analyte Trace- intact Not Available joe scott [address] [place], [address], 03/18/2024 12:35:04 03/18/2003/18/2024 urina lysis , dipst ick Unknown Analyte 6.0 Not Available robe [address] [place], [address], 03/18/2024 12:35:04 03/18/2003/18/2024 urina lysis , dipst ick Unknown Analyte 100 mg/dL Not Available joe scott [address] [place], [address], 03/18/2024 12:35:04 03/18/2003/18/2024 urina lysis , dipst ick Unknown Analyte 0.2 E.U./d L Not Available joe scott [address] [place], [address], 03/18/2024 12:35:04 03/18/20 24 03/18/2024 urina lysis , dipst ick Unknown Analyte Negati ve Not Available joe scott [address] [place], [address], 03/18/2024 12:35:04 03/18/20 24 03/18/2024 urina lysis , dipst ick Unknown Analyte Negati ve Not Available [address]faith scott [address] [place], [address], 03/18/2024 12:35:04 03/18/20 24 03/18/2024 pregn basilio test, urine Unknown Analyte negati ve Not Available [address]faith scott [address] [place], [address], 03/18/2024 12:34:58 03/18/20 24 03/18/2024 pregn basilio test, urine Unknown Analyte yes Not Available Tobin nagel [address] [place], [address], 03/18/2024 12:34:58 Result Notes None recorded. Problems Name Problem SNOMED Code Status Onset Date Resolution Date Notes Provider Name and Address Organization Details Recorded Time Bipolar disorder 31159258 Active Milvia King null, [place] - [facility] 3 16:45:44 Posttraumatic stress disorder 14144239 Active Milvia King null, PA - [facility] 3 16:45:54 Attention deficit hyperactivity disorder 109242282 Active Dasha [place] null, PA - [facility] 4 13:33:56 Problem Notes None recorded. Medical Equipment None Reported. Allergies No known drug allergies Medications Name Sig Start Date Stop Date Status Note LastModified by Organization Details LastModified Time clonidine HCl 0.1 mg tablet TAKE 1 TABLET BY MOUTH TWICE A DAY NEEDED active Not Available Not Available No t Available cefuroxime axetil 250 mg tablet TAKE 1 TABLET BY MOUTH TWICE A DAY FOR 7 DAYS 03/04 completed Not Available Not Available Not Available quetiapine 300 mg tablet TAKE 1 TABLET BY MOUTH EVERYDAY AT BEDTIME active Not Available Not Available No t Available clindamycin HCl 300 mg capsule TAKE 1 CAPSULE BY MOUTH EVERY 6 HOURS 03/04 completed Not Available Not Available Not Available ibuprofen 800 mg tablet TAKE 1 TABLET BY MOUTH EVERY 6 HOURS WITH FOOD active Not Available Not Available No t Available valacyclovi r 1 gram tablet TAKE 1 TABLET BY MOUTH THREE TIMES A DAY FOR 7 DAYS 03/18 completed Not Available Not Available Not Available acetaminoph en 500 mg tablet TAKE 1 TABLET BY MOUTH EVERY 4 TO 6 HOURS NEEDED active Not Available Not Available No t Available ciprofloxac in 0.3 % eye drops INSTILL 1 DROP INTO AFFECTED EYE EVERY 6 HOURS FOR 7 DAYS 02/28 completed Not Available Not Available Not Available cephalexin 500 mg capsule TAKE ONE CAPSULE BY MOUTH FOUR TIMES A DAY FOR 7 DAYS 03/04 completed Not Available Not Available Not Available nicotine 21 mg/24 hr daily transdermal patch APPLY 1 PATCH TO SKIN ONCE A DAY REMOVE BEFORE BED active Not Available Not Available No t Available oxcarbazepi ne 600 mg tablet TAKE 1 TABLET BY MOUTH TWICE A DAY active Not Available Not Available No t Available methylpredn isolone 4 mg tablets in a dose pack TAKE 6 TABLETS ON DAY 1 DIRECTED ON PACKAGE AND DECREASE BY 1 TAB EACH DAY FOR A TOTAL OF 6 DAYS 03/04 completed Not Available Not Available Not Available fluticasone propionate 50 mcg/actuati on nasal spray,suspe nsion SPRAY 2 SPRAYS INTO EACH NOSTRIL EVERY DAY FOR 30 DAYS active Not Available Not Available No t Available oxycodone 5 mg tablet TAKE 1 TABLET EVERY 6 HOURS NEEDED FOR BREAKTHRO UGH PAIN. 03/04 completed Not Available Not Available Not Available Denta 5000 Plus 1.1 % cream APPLY TO TOOTHBRUS H AND BRUSH TEETH AT NIGHT WITH TOOTHPAST E active Not Available Not Available No t Available atomoxetine 10 mg capsule TAKE 1 CAPSULE BY MOUTH EVERY DAY IN THE MORNING active Not Available Not Available No t Available atomoxetine 40 mg capsule TAKE 1 CAPSULE BY MOUTH EVERY DAY IN THE MORNING active Not Available Not Available No t Available chlorhexidi ne gluconate 0.12 % mouthwash RINSE MOUTH WITH 15ML (1 CAPFUL) FOR 30 SECONDS IN MORNING AND EVENING AFTER BRUSHING, THEN SPIT 03/04 completed Not Available Not Available Not Available Seroquel active Not Available Not Avai lable Not Available Trileptal active Not Available Not Mariela ilable Not Available Vyvanse 30 mg capsule TAKE 1 CAPSULE BY MOUTH EVERY DAY IN THE MORNING active Not Available Not Available No t Available Nexplanon active Not Available Not Mariela ilable Not Available Vitals Date Recorded Body height Body mass index (BMI) Body weight Respiratory rate Oxygen saturation Oxygen saturation in Arterial blood by Pulse oximetry Heart rate Body temperature Systolic blood pressure Diastolic blood pressure Provider Name and Address Organization Details Last Updated DateTime 3 165.1 cm 17.5 kg/m2 77985.2 g 16 /min 100 % 100 % 57 /min 97.4 [degF] 118 mm[Hg] 63 mm[Hg] Milvia King PA - [facility] 3 16:51:44 Date Recorded Body height Body mass index (BMI) Body weight Body temperature Oxygen saturation Oxygen saturation in Arterial blood by Pulse oximetry Heart rate Respiratory rate Systolic blood pressure Diastolic blood pressure Provider Name and Address Organization Details Last Updated DateTime 4 165.1 cm 17.6 kg/m2 11213.7 9 g 98.9 [degF] 97 % 97 % 100 /min 16 /min 130 mm[Hg] 89 mm[Hg] Kanu Segovia PA - [facility] 4 18:04:57 Date Recorded Body height Body mass index (BMI) Body weight Oxygen saturation Oxygen saturation in Arterial blood by Pulse oximetry Heart rate Body temperature Systolic blood pressure Diastolic blood pressure Provider Name and Address Organization Details Last Updated DateTime 4 165.1 cm 17.6 kg/m2 87182.7 9 g 98 % 98 % 118 /min 98.4 [degF] 117 mm[Hg] 77 mm[Hg] Dasha De Anda PA - [facility] 4 13:38:50 Date Recorded Body height Body mass index (BMI) Body weight Oxygen saturation Oxygen saturation in Arterial blood by Pulse oximetry Heart rate Respiratory rate Body temperature Systolic blood pressure Diastolic blood pressure Provider Name and Address Organization Details Last Updated DateTime 4 165.1 cm 17.6 kg/m2 92663.7 9 g 97 % 97 % 98 /min 18 /min 97.7 [degF] 110 mm[Hg] 75 mm[Hg] Jaci Golden PA - [facility] 4 12:35:15 Date Recorded Body height Body mass index (BMI) Body weight Respiratory rate Body temperature Heart rate Oxygen saturation Oxygen saturation in Arterial blood by Pulse oximetry Systolic blood pressure Diastolic blood pressure Provider Name and Address Organization Details Last Updated DateTime 165.1 cm 18.3 kg/m2 02799.1 6 g 18 /min 97.7 [degF] 95 /min 99 % 99 % 107 mm[Hg] 75 mm[Hg] Jaci Golden PA - [facility] 11:01:27 Social History Question Answer Notes LastModified by Organizat ion Details LastModified Time Tobacco Smoking Status Former Smoker Jaci Golden gudelia, [place] - [facility] 06/16/2024 11:00:05 What Is Your Level Of Alcohol Consumption? Occasional Information not available 01/26/2023 How Many Times Per Week Do You Consume Alcohol? Less Than 1 Time Per Week Information not available 01/26/2023 Do You Or Have You Ever Used E-cigarettes Or Vape? Current User Of Electronic Cigarettes Information not available 01/26/2023 Have You Had A Flu Shot This Season? No Information not available 02/29/2024 Have You Had Direct Contact, Or Contact During Intimacy, With Monkeypox Rash, Scabs, Or Body Fluids From A Person With Monkeypox? No Information not available 01/26/2023 Do You Use Any Illicit Or Recreational Drugs? Yes [place] Information not available 02/29/2024 Have You Recently Traveled Abroad? No Information not available 01/26/2023 Do You Or Have You Ever Used Any Other Forms Of Tobacco Or Nicotine? Yes Information not available 01/26/2023 Sex: Unknown Functional Status None recorded. Mental Status None recorded. Family History Relationship Description Onset Age of this Age Resolved Age Notes LastModified by Organization Details LastModified Time Mother Malignant neoplastic disease nruszala Not available 2022 16:46:30 Paternal Grandfather Malignant neoplastic disease Not available 2023 17:59:58 Paternal Grandmother Heart disease Not available 2023 18:00:06 Medical History No medical history recorded. Gynecological History Statement/Question Response Date of LMP 05/26/2024 Is there any chance of ? No LMP Unknown Obstetrics History GPAL:G 0 P 0 0 0 0 Immunizations Vaccine Type Date Status Provider Name and Address Organization Details Recorded Time meningococcal B, recombinant 06/07/2019 completed Mlivia Eppsla null, PA - [facility] 01/26/2023 16:44:31 MMR 01/19/2017 completed Milvia Ruszala null, PA - [facility] 01/26/2023 16:44:31 Hep B, unspecified formulation 01/19/2017 completed Milvia Ruszala null, PA - [facility] 01/26/2023 16:44:31 HPV, unspecified formulation 03/29/2017 completed Milvia Fredzala null, PA - [facility] 01/26/2023 16:44:31 HPV, quadrivalent 01/09/2015 completed Milvia Rus zala null, PA - [facility] 01/26/2023 16:44:31 Hep A, ped/adol, 2 dose 01/09/2015 completed Milvia Ruszala null, PA - [facility] 01/26/2023 16:44:31 meningococcal MCV4P 06/07/2019 completed Milvia hollidayzala null, PA - [facility] 01/26/2023 16:44:31 Influenza, live, quadrivalent, intranasal 07/09/2015 completed Milvia Ruszala null, PA - [facility] 01/26/2023 16:44:31 Past Encounters Encounter ID Performer Location Encounter Start Date Encounter Closed Date Diagnosis/Indication Diagnosis SNOMED-CT Code Diagnosis ICD10 Code [id number] [address] [place] [address] 02/28/2020 08:41:41 02/28/2020 09:59:52 [id number] [address] [place] [address] 01/01/2020 17:39:33 01/01/2020 18:38:09 [id number] [address] [place] [address] 04/02/2017 10:54:40 04/02/2017 12:09:42 [id number] [facility] [address] [place] [address] 06/25/2017 16:04:32 06/25/2017 17:23:20 [id number] KIMBERLY STRAUSS [address] [facility] [place] [address] 01/26/2023 16:15:06 01/26/2023 17:46:34 Subconjunctival hemorrhage of right eye 3482980654 52253 H11.31 [id number] KIMBERLY Sharp [address] [facility] [place] [address] 02/29/2024 17:53:10 02/29/2024 18:19:31 Acute pharyngitis 122831591 J02.9 [id number] KIMBERLY Sharp [address] [place] [address] 03/04/2024 13:28:31 03/04/2024 13:44:42 Herpes zoster 6755795 B02.9 [id number] KIMBERLY Sharp [address] [place] [address] 03/18/2024 12:29:10 03/18/2024 12:49:40 Diarrhea 83102209 R19.7 Tension-type headache 39 8438408 G44.209 [id number] KIMBERLY Sharp [address] [place] [address] 06/16/2024 10:54:11 06/16/2024 11:07:51 Upper respiratory infection 70549502 J06.9 Health Concerns Section Related Observation LastModified by Organization Detai ls LastModified Time None Recorded Concern Status LastModified by Organization Details LastModified Time None Recorded Advance Directives Directive None Recorded Payers Encounter Date Sequence Insurance Name Policy Number Policy Zamudio Covered Member ID Zamudio Member ID Guarantor Name 01/26/2023 1 [facility] DIRECT CONNECTORCARE TYPE I (HMO) [id number] Paige Stocktonjtczak [id number] Paige Gusman 02/29/2024 1 [facility] - DIRECT [facility] TYPE I (HMO) [id number] Paige Gusman [id number] Paige Bustostcmarilyn 03/04/2024 1 [facility] - DIRECT CONNECTORCARE TYPE I (HMO) [id number] Paige Orozcok [id number] Paige Gusman 03/18/2024 1 [facility] - DIRECT CONNECTORCARE TYPE I (HMO) [id number] Paige Orozcok [id number] Paige Bustostcmarilyn 06/16/2024 1 [facility] - DIRECT CONNECTORCARE TYPE I (HMO) [id number] Paige Gusman [id number] Paige Gusman Notes Date Note Type Note Provider Name and Address Organization Details Recorded Time 3 text/html Eye problemsReported bypatient.source of patient informationInformation obtained from patient; Patient arrived at Urgent Care ambulatory Location:right Eye Symptoms:no sensitivity to light; no discharge of pus from the eyes; no pain in the eyes; no blurred vision;redness Severity:mild Onset/Timindays Context:eye traumaNotes:The patient is here because on January 24 she ran into a cactus. She reports that she had contact in. She doesnt recall if she had pain or runny eye but she thinks that she might have. The patient is here because she has a red area on the right lateral lower portion of the eye. No blurred vision or pain. She feels she is waking up more with some crust on the eye. Has not been wearing contacts. KIMBERLY STRAUSS [address] [place], [address], PA - [facility] 01/26/2023 18:04:51 4 text/html 23 y/o female here with upper chest tightness, no change with breathing, and sore throat. Started 2 days ago, no improvement with OTC meds, though she did not smoke marijuana or her vape today and feels a bit better.No fevers, chills, drinking some herbal tea that's helping her cough up some mucus KIMBERLY Sharp [address] [place], [address], PA - [facility] 02/29/2024 18:17:21 4 text/html 23 y/o female here with rash to the back of her head, painful on the right side, itchy on the left, but pain and itch feels like it's radiating along her head KIMBERLY Sharp [address] [place], [address], [place] PA - [facility] 03/04/2024 13:45:58 4 text/html 23 y/o female here with 2 days of loose stools - 4-5 episodes a day. Also some nausea, and headache, like a sweatband around her head.She was treated for shingles 2 weeks ago, that pain has gotten better, but has not resolved.She is also having menstrual bleeding for nearly 2 months, does ease up, but then starts again. KIMBERLY Sharp [address] [place], [address], PA - [facility] 03/18/2024 12:56:47 4 text/html 23 y/o female here with 3 days of congestion, sore throat, ear pain, no fevers, chills, body aches. KIMBERLY Sharp [place], [address], [place] PA - [facility] 06/16/2024 11:10:35 OBGyn Episode No OBEpisode recorded.
--- OUTSIDE RECORDS SUMMARY | 2024-07-02 15:02 | XMS_ITS | Continuity of Care Document ---
Author Organization [facility] [address] Address [address] [place] [address] Care Team Providers Care Bursar Name Role Phone GENEVIEVEJUNG BLANC Primary Care Provider [phone] Assessment No assessment recorded. Plan of Treatment Reminders Order Date Submit Date Provider Last Modified By Organization Details Last Modified Time Details Appointments None recorded. Lab None recorded. Referral None recorded. Procedures None recorded. Surgeries None recorded. Imaging None recorded. Medication Orders fluticasone propionate 50 mcg/actuati on nasal spray,suspe nsion 2023 024 [id number], [address] [facility] [place], [address], 4 11:39:02 Patient TargetsNo targets recorded. Patient Instructions Encounter Date Encounter Id Patient Instructions Last Modified By Organization Details Last Modified Time 06/16/2024 [id number] upper respirator y infection (cold): care instructions Not available 06/16/2024 11:06:07 Reason for Referral None Reported. Problems Name Problem SNOMED Code Status Onset Date Resolution Date Notes Provider Name and Address Organization Details Recorded Time Bipolar disorder 62033869 Active Milvia Ruszala null, PA - [facility] 3 16:45:44 Posttraumatic stress disorder 84984887 Active Milvia Ruszala null, PA - [facility] 3 16:45:54 Attention deficit hyperactivity disorder 026699551 Active Dasha [place] null, PA - [facility] 4 13:33:56 [...] Last Updated DateTime 165.1 cm 18.3 kg/m2 88619.1 6 g 18 /min 97.7 [degF] 95 /min 99 % 99 % 107 mm[Hg] 75 mm[Hg] Jaci Golden PA [facility] 11:01:27 Social History Question Answer Notes LastModified by ApprenNetat ion Details LastModified Time Tobacco Smoking Status Former Smoker Jaci galeas [place] - [facility] 06/16/2024 11:00:05 What Is Your Level Of [...] Use Any Illicit Or Recreational Drugs? Yes [place] Information not available 02/29/2024 Have You Recently [...] Recorded Time meningococcal B, recombinant 06/07/2019 completed Milvia King null, PA - [facility] 01/26/2023 16:44:31 MMR 01/19/2017 completed Milvia King null, PA - [facility] 01/26/2023 16:44:31 Hep B, unspecified formulation 01/19/2017 completed Milvia King null, PA - [facility] 01/26/2023 16:44:31 HPV, unspecified formulation 03/29/2017 completed Milvia King null, PA - [facility] 01/26/2023 16:44:31 HPV, quadrivalent 01/09/2015 completed Milvia freeman null, PA - [facility] 01/26/2023 16:44:31 Hep A, ped/adol, 2 dose 01/09/2015 completed Milvia King null, PA - [facility] 01/26/2023 16:44:31 meningococcal MCV4P 06/07/2019 completed Milvia ramachandran null, PA - [facility] 01/26/2023 16:44:31 Influenza, live, quadrivalent, intranasal 07/09/2015 completed Milvia galeas, PA - [facility] 01/26/2023 16:44:31 Past Encounters Encounter ID Performer Location Encounter Start Date Encounter Closed Date Diagnosis/Indication Diagnosis SNOMED-CT Code Diagnosis ICD10 Code [id number] [facility]LY [facility] [address] [facility] [address] [place] [address] 06/16/2024 10:54:11 06/16/2024 11:07:51 Upper respiratory infection 44556449 J06.9 Health Concerns Section Related Observation LastModified by Organization Detai ls LastModified Time None Recorded Concern Status LastModified by Organization Details LastModified Time None Recorded Payers Encounter Date Sequence Insurance Name Policy Number Policy Zamudio Covered Member ID Zamudio Member ID Guarantor Name 06/16/2024 1 [facility] TYPE I (O) [id number] Paige Gusman [id number] Paige Gusman Notes Date Note Type Note Provider Name and Address Organization Details Recorded Time 06/16/2024 text/html 23 y/o female here with 3 days of congestion, sore throat, ear pain, no fevers, chills, body aches. KIMBERLY Sharp [address] [place], [address], [place] - [facility] 06/16/2024 11:10:35 OBGyn Episode No OBEpisode recorded.
== END 2024-06-25 15:19 | disposition home or self-care (01) ==
PROVIDERS: PCP Physician Assistant; Visit Provider Physician Assistant
DX: Z00.00 Encounter for general adult medical examination without abnormal findings (principal); F19.11 Other psychoactive substance abuse, in remission; F33.1 Major depressive disorder, recurrent, moderate; Z78.9 Other specified health status

== ENCOUNTER → 2024-06-25 14:45 | Outpatient (BNVA) | payer OTHER, SELFPAY | PROVIDERS: PCP Physician Assistant; Visit Provider Physician Assistant | DX: Z00.00 Encounter for general adult medical examination without abnormal findings (principal); Z23 Encounter for immunization; F19.11 Other psychoactive substance abuse, in remission; F33.1 Major depressive disorder, recurrent, moderate; Z78.9 Other specified health status | CPT/HCPCS: 90471; 90715; 99395 ==

== ENCOUNTER 2024-07-03 09:21 | Outpatient (AMB) | payer OTHER, SELFPAY ==
--- NOTE | 2024-07-03 09:28 | MHC.AMNUTRGE ---
VS Expanded 07/03/24 09:29 Height 5 ft 5 in Weight 107 lb 2.314 oz BMI 17.8 Intake Visit Reasons: monitor weight/Confirmed Allergies No Known Allergies Allergy (Verified 06/25/24 14:57) Nutrition Presentation Details: Pt presents for MNT for ED, to monitor weight Pt reports starting to develop a sore throat and has been having soups (mainly noodles and broth or mashed potato, juices). Has 1 protein shake a day. Reports feeling as if food gets stuck in throat and gags Denies vomiting, denies diarrhea reports omitting chicken/fish due to gaging symptoms BS Monitoring Most Recent Diabetes Results: No Data to Display [facility] Medical History (Updated 06/26/24 @ 07:27 by Yoins Steward PA-C) Screening for diabetes mellitus (DM) Flat feet, bilateral Annual physical exam Hx of substance abuse Depression, major, in partial remission Family History Mother Lung cancer metastatic to brain Father No problems noted. 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 Cognitive needs: No Hearing needs: No Vision needs: Yes Female Reproductive History Menstrual Age of Menarche: 13 Assessment & Plan Assessment & Plan (1) Eating disorder: Code(s): F50.9 - Eating disorder, unspecified Category: Medical Plan: Wt: 46.8 Kg ( 12/19/23 at PCP ), 48 kg (03/16), 48 (05/16), 49 (06/16), 48 kg (07/16) Est kcal needs as per MSJ: 1500 + gradual increase calories by 1000- 2000 every 3 days to promote healthy weight gain (40% carb, 30% protein/fat) Est fluid needs as per 30 ml/d: 1500 Est prot per day as per 1.2 g/kg bw: min 56g Recommend fiber intake : 8-10 g per day and gradually increase to 25-28 g per day for women and 35-38 g for men or as tolerated Recommend sodium intake per day : 2000 mg Educated patient on: ( R = reviewed V = verbalizes understanding N/R = needs review N/A = not applicable Balancing meals, increasing nutrients/vitamin via fat/protein/starches increasing calories to promote weight gain - relationship of increased calories to current body weight Balancing sugars/protein during the day with increased appetite importance of hydration : R, V role of protein in diet: R Patient Instructions: keep hydrated as established, choosing soft foods easy to swallow however add soft protein foods example: scrambled eggs, soft tofu, ground turkey, lentils, beans, tuna in the can , cottage cheese to pancake batter as example Chew food well prior to swallowing Take a chewable multivitamin Coding Level of Care Code Nutr Indiv Subseq (56844) Diagnoses Eating disorder F50.9 Time Spent (min) 20
[2024-07-03 09:29] VITALS: BMI 17.8
--- OUTSIDE RECORDS SUMMARY | 2024-07-03 23:42 | XMS_ITS | Data Portability ---
Author Organization [facility], [address] Address [address] [place] [address] Care Team Providers Care Oven Heater Helper Name Role Phone JUNG VALLEJO Primary Care Provider [phone] Assessment No assessment recorded. Plan of Treatment Reminders Order Date Submit Date Provider Last Modified By Organization Details Last Modified Time Details Appointments None recorded. Lab rapid strep group A, throat 2023 024 [place] [facility], [address] [place], [address], 4 18:15:44 test, urine 2023 024 _[facility], [address] [place] [address], [address], 4 12:48:10 urinalysis, dipstick 2023 024 _[facility], [address] [place] [address], [address], 4 12:48:11 Referral None recorded. Procedures None recorded. Surgeries None recorded. Imaging None recorded. Medication Orders Ciloxan 0.3 % eye drops 2022 023 [id number], [address] [place], [address], 4 17:58:48 fluticasone propionate 50 mcg/actuati on nasal spray,suspe nsion 2023 024 [id number], [address] [facility] [place], [address], 18:14:49 valacyclovi r 1 gram tablet 2023 024 [id number], [address] [facility] [place], [address], 12:33:50 fluticasone propionate 50 mcg/actuati on nasal spray,suspe nsion 2023 024 [id number], [address] [facility] [place], [address], 11:39:02 Patient TargetsNo targets recorded. Patient Instructions Encounter Date Encounter Id Patient Instructions Last Modified By Organization Details Last Modified Time 01/26/2023 [id number] subconjunctival hemorrhage: care instructions [email or web address] Not available 01/26/2023 17:43:20 Based on your [...] next 1 week. Thank you for using [facility] today, please feel free to contact us with any questions or concerns. Not available 01/26/2023 17:43:14 02/29/2024 [id number] sore throat: car e instructions Not available 02/29/2024 18:14:47 03/04/2024 [id number] shingles: care instructions Not available 03/04/2024 13:42:54 03/18/2024 [id number] diarrhea: care instructions Not available 03/18/2024 12:48:08 tension headache : care instructions Not available 03/18/2024 12:48:08 06/16/2024 [id number] upper respirator y infection (cold): care instructions Not available 06/16/2024 11:06:07 Reason for Referral None Reported. Results Created Date Observation Date Name Description Value Unit Range Abnormal Flag Note LastModifiedBy Organization Detail LastModifiedTime 02/29/2002/29/2024 rapid strep group A, throa t Unknown Analyte negati ve Not Available joe scott [address] [place] [place], [address], 02/29/2024 18:10:37 02/29/2002/29/2024 rapid strep group A, throa t Unknown Analyte yes Not Available 2099_ robe [address] [place] [place], [address], 02/29/2024 18:10:37 03/18/2003/18/2024 urina lysis , dipst ick Unknown Analyte Yellow Not Available _ [address] [place], [address], 03/18/2024 12:35:04 03/18/2003/18/2024 urina lysis , dipst ick Unknown Analyte Slight ly Cloudy Not Available [facility] [address] [place], [address], 03/18/2024 12:35:04 03/18/2003/18/2024 urina lysis , dipst ick Unknown Analyte Negati ve Not Available [facility] [address] [place], [address], 03/18/2024 12:35:04 03/18/2003/18/2024 urina lysis , dipst ick Unknown Analyte Negati ve Not Available [facility] [address] [place], [address], 03/18/2024 12:35:04 03/18/20 24 03/18/2024 urina lysis , dipst ick Unknown Analyte Negati ve Not Available joe scott [address] [place], [address], 03/18/2024 12:35:04 03/18/20 24 03/18/2024 urina lysis , dipst ick Unknown Analyte 1.030 Not Available robe [address], [address], 03/18/2024 12:35:04 03/18/20 24 03/18/2024 urina lysis , dipst ick Unknown Analyte Trace- intact Not Available joe scott [address], [address], 03/18/2024 12:35:04 03/18/2003/18/2024 urina lysis , dipst ick Unknown Analyte 6.0 Not Available robe [address] [place], [address], 03/18/2024 12:35:04 03/18/2003/18/2024 urina lysis , dipst ick Unknown Analyte 100 mg/dL Not Available joe scott [address] [place], [address], 03/18/2024 12:35:04 03/18/2003/18/2024 urina lysis , dipst ick Unknown Analyte 0.2 E.U./d L Not Available joe scott [address] [place], [address], 03/18/2024 12:35:04 03/18/20 24 03/18/2024 urina lysis , dipst ick Unknown Analyte Negati ve Not Available joe scott [address] [place], [address], 03/18/2024 12:35:04 03/18/20 24 03/18/2024 urina lysis , dipst ick Unknown Analyte Negati ve Not Available [address]faith scott [address] [place], [address], 03/18/2024 12:35:04 03/18/20 24 03/18/2024 pregn basilio test, urine Unknown Analyte negati ve Not Available [address]faith [address] [place], [address], 03/18/2024 12:34:58 03/18/20 24 03/18/2024 pregn basilio test, urine Unknown Analyte yes Not Available Tobin nagel [address] [place], [address], 03/18/2024 12:34:58 Result Notes None recorded. Problems Name Problem SNOMED Code Status Onset Date Resolution Date Notes Provider Name and Address Organization Details Recorded Time Bipolar disorder 54613998 Active Milvia King null, [place] - [facility] 3 16:45:44 Posttraumatic stress disorder 41508910 Active Milvia King null, [place] - [facility] 3 16:45:54 Attention deficit hyperactivity disorder 383097006 Active Dasha [place] null, [place] - [facility] 4 13:33:56 [...] Updated DateTime 3 165.1 cm 17.5 kg/m2 13141.2 g 16 /min 100 % 100 % [...] Updated DateTime 4 165.1 cm 17.6 kg/m2 87179.7 9 g 98.9 [degF] 97 % 97 [...] Updated DateTime 4 165.1 cm 17.6 kg/m2 52968.7 9 g 98 % 98 % 118 [...] Updated DateTime 4 165.1 cm 17.6 kg/m2 40032.7 9 g 97 % 97 % 98 [...] Last Updated DateTime 165.1 cm 18.3 kg/m2 20269.1 6 g 18 /min 97.7 [degF] 95 [...] Use Any Illicit Or Recreational Drugs? Yes [place] Information not available 02/29/2024 Have You Recently [...] 0 0 Immunizations Vaccine Type Date Status Note Provider Nam e and Address Organization Details Recorded Time meningococcal B, recombinant 9 completed Milvia Ruszala null, PA - [facility] 01/26/2023 16:44:31 MMR 7 completed Milvia Ruszala null, PA - [facility] 01/26/2023 16:44:31 Hep B, unspecified formulation 7 completed Milvia Ruszala null, PA - [facility] 01/26/2023 16:44:31 HPV, unspecified formulation 7 completed Milvia Ruszala null, PA - [facility] 01/26/2023 16:44:31 HPV, quadrivalent 5 completed Milvia Ruszala null, PA - [facility] 01/26/2023 16:44:31 Hep A, ped/adol, 2 dose 5 completed Milvia Ruszala null, PA - [facility] 01/26/2023 16:44:31 meningococcal MCV4P 9 completed Milvia Ruszala null, PA - [facility] 01/26/2023 16:44:31 Influenza, live, quadrivalent, intranasal 5 completed Milvia Ruszala null, PA - [facility] 01/26/2023 16:44:31 Past Encounters Encounter ID Performer Location Encounter Start Date Encounter Closed Date Diagnosis/Indication Diagnosis SNOMED-CT Code Diagnosis ICD10 Code [id number] [address] [place] [address] 02/28/2020 08:41:41 02/28/2020 09:59:52 [id number] [address] [place] [address] 01/01/2020 17:39:33 01/01/2020 18:38:09 [id number] [address] [place] [address] 04/02/2017 10:54:40 04/02/2017 12:09:42 [id number] [address] [place] [address] 06/25/2017 16:04:32 06/25/2017 17:23:20 [id number] KIMBERLY STRAUSS [address] [facility] [place] [address] 01/26/2023 16:15:06 01/26/2023 17:46:34 Subconjunctival hemorrhage of right eye 3552025204 88132 H11.31 [id number] KIMBERLY Sharp [address] [place] [address] 02/29/2024 17:53:10 02/29/2024 18:19:31 Acute pharyngitis 346995812 J02.9 [id number] KIMBERLY Sharp [address] [place] [address] 03/04/2024 13:28:31 03/04/2024 13:44:42 Herpes zoster 1073337 B02.9 [id number] KIMBERLY Sharp [address] [place] [address] 03/18/2024 12:29:10 03/18/2024 12:49:40 Diarrhea 39781449 R19.7 Tension-type headache 39 2779868 G44.209 [id number] KIMBERLY Sharp [address] [place] [address] 06/16/2024 10:54:11 06/16/2024 11:07:51 Upper respiratory infection 07449202 J06.9 Health Concerns Section Related Observation LastModified by Organization Detai ls LastModified Time None Recorded Concern Status LastModified by Organization Details LastModified Time None Recorded Advance Directives Directive None Recorded Payers Encounter Date Sequence Insurance Name Policy Number Policy Zamudio Covered Member ID Zamudio Member ID Guarantor Name 01/26/2023 1 [facility] [employer] TYPE I (HMO) [id number] Paige Wojtczak [id number] Paige Gusman 02/29/2024 1 [facility] [employer] TYPE I (HMO) [id number] Paige Gusman [id number] Paige Gusman 03/04/2024 1 [facility] TYPE I (HMO) [id number] Paige Gusman [id number] Paige Gusman 03/18/2024 1 [facility] TYPE I (HMO) [id number] Paige Gusman [id number] Paige Gusman 06/16/2024 1 [facility] [employer] TYPE I (HMO) [id number] Paige Gusman [id number] Paige Gusman Notes Date Note Type [...] not been wearing contacts. KIMBERLY STRAUSS [address], [place], [address], [place] - [facility] 01/26/2023 18:04:51 4 text/html 23 y/o female here with upper chest tightness, no change with breathing, and sore throat. Started 2 days ago, no improvement with OTC meds, though she did not smoke marijuana or her vape today and feels a bit better.No fevers, chills, drinking some herbal tea that's helping her cough up some mucus KIMBERLY Sharp [address], [place], [address], [place] PA - [facility] 02/29/2024 18:17:21 4 text/html 23 y/o female here with rash to the back of her head, painful on the right side, itchy on the left, but pain and itch feels like it's radiating along her head KIMBERLY Sharp [place], [address], [place] - [facility] 03/04/2024 13:45:58 [...] but then starts again. KIMBERLY Sharp [address], [place], [address], [place] - [facility] 03/18/2024 12:56:47 4 text/html 23 y/o female here with 3 days of congestion, sore throat, ear pain, no fevers, chills, body aches. KIMBERLY Sharp [place], [address], [place] - [facility] 06/16/2024 11:10:35 OBGyn Episode No OBEpisode recorded.
--- OUTSIDE RECORDS SUMMARY | 2024-07-03 23:42 | XMS_ITS | Continuity of Care Document ---
Author Organization [facility] [address] Address [address] [place] [address] Care Team Providers Care Seed Yeast Operator Name Role Phone GENEVIEVEJUNG BLANC Primary Care Provider Assessment No assessment recorded. Plan of Treatment Reminders Order Date Submit Date Provider Last Modified By Organization Details Last Modified Time Details Appointments None recorded. Lab None recorded. Referral None recorded. Procedures None recorded. Surgeries None recorded. Imaging None recorded. Medication Orders fluticasone propionate 50 mcg/actuati on nasal spray,suspe nsion 2023 024 [id number], [address] [facility] [place], [address], 4 11:39:02 Patient TargetsNo targets recorded. Patient Instructions Encounter Date Encounter Id Patient Instructions Last Modified By Organization Details Last Modified Time 06/16/2024 [id number] upper respirator y infection (cold): care instructions Not available 06/16/2024 11:06:07 Reason for Referral None Reported. Problems Name Problem SNOMED Code Status Onset Date Resolution Date Notes Provider Name and Address Organization Details Recorded Time Bipolar disorder 17164893 Active Milvia Ruszala null, PA - [facility] 3 16:45:44 Posttraumatic stress disorder 23069183 Active Milvia Ruszala null, PA - [facility] 3 16:45:54 Attention deficit hyperactivity disorder 058127665 Active Dasha [place] null, PA - [facility] 4 13:33:56 [...] Last Updated DateTime 165.1 cm 18.3 kg/m2 00842.1 6 g 18 /min 97.7 [degF] 95 /min 99 % 99 % 107 mm[Hg] 75 mm[Hg] Jaci Golden PA [facility]. 11:01:27 Social History Question Answer Notes LastModified by Relayat ion Details LastModified Time Tobacco Smoking Status Former Smoker Jaci galeas [place] - [facility] 06/16/2024 11:00:05 What Is Your Level Of [...] Use Any Illicit Or Recreational Drugs? Yes [place] Information not available 02/29/2024 Have You Recently [...] Diagnosis/Indication Diagnosis SNOMED-CT Code Diagnosis ICD10 Code [id number] KIMBERLY Sharp [address] [place] [address] 06/16/2024 10:54:11 06/16/2024 11:07:51 Upper respiratory infection 31882542 J06.9 Health Concerns Section Related Observation LastModified by Organization Detai ls LastModified Time None Recorded Concern Status LastModified by Organization Details LastModified Time None Recorded Payers Encounter Date Sequence Insurance Name Policy Number Policy Zamudio Covered Member ID Zamudio Member ID Guarantor Name 06/16/2024 1 [facility] TYPE I (O) [id number] Paige Uzma [id number] Paige Gusman Notes Date Note Type Note Provider Name and Address Organization Details Recorded Time 06/16/2024 text/html 23 y/o female here with 3 days of congestion, sore throat, ear pain, no fevers, chills, body aches. KIMBERLY Sharp [facility] [place], [address], [place] - [facility] 06/16/2024 11:10:35 OBGyn Episode No OBEpisode recorded.
== END 2024-07-03 09:44 | disposition home or self-care (01) ==
PROVIDERS: PCP Physician Assistant; Visit Provider Dietitian, Registered
DX: F50.9 Eating disorder, unspecified (principal)

== ENCOUNTER 2024-07-03 09:21 | Outpatient (REF) | payer OTHER, SELFPAY ==
[2024-07-03 11:41] LABS: HBS Num1 0.11 mIU/mL (0-7.99); ~Hepatitis B Surface Antibody NONREACTIVE (Nonreactive)
[2024-07-04 14:52] LABS: Mumps Virus IgG Antibody <9.00 AU/mL; Rubella IgG Antibody <0.90 Index; Varicella IgG Antibody <1.00 S/CO
== END 2024-07-03 09:22 | disposition home or self-care (01) ==
LOC: HO.LAB 09:21
PROVIDERS: Absent Provider Physician Assistant; PCP Physician Assistant; Visit Provider Dietitian, Registered
DX: Z78.9 Other specified health status (principal); Z01.84 Encounter for antibody response examination; Z71.3 Dietary counseling and surveillance; F50.9 Eating disorder, unspecified
CPT/HCPCS: 36415; 86706; 86735; 86762; 86765; 86787; 97803

== ENCOUNTER 2024-07-11 09:50 | Outpatient (AMB) | payer OTHER, SELFPAY ==
--- NOTE | 2024-07-11 10:04 | AM.OFFVISNUR ---
Intake Visit Reasons: MMR vaccine Allergies No Known Allergies Allergy (Verified 06/25/24 14:57) Immunizations M-M-R II (PF) 1,000-12,500 TCID50/0.5 mL subcutaneous solution Performing Provider: Yonis Steward PA-C [facility] Administered by: Keerthi Kang LPN on 07/11/24 10:04 Dose Route Admin Location Dispensed Lot Number Expiration Date [facility] Automatic Bow Maker Machine Tender 0.5 mL subcut Left Arm 0.5 mL [id number] 05/29/25 7563-2092-50 [employer] & D VIS Given Date VIS Provided VIS Publication Date 07/11/24 Single Vaccine 21 Eligibility Eligibility Date Funding Source Not [facility] Eligible 07/11/24 Private Assessment & Plan Assessment & Plan Orders: Orders MMR Immunization Today Z23 - Encounter for immunization Medications: New M-M-R II (PF) (measles,mumps,rubella vacc(PF)) 0.5 mL subcut ONCE 1 ea 0RF NS Z23 - Encounter for immunization
== END 2024-07-11 10:05 | disposition home or self-care (01) ==
PROVIDERS: PCP Physician Assistant; Visit Provider Physician Assistant
DX: Z23 Encounter for immunization (principal)

== ENCOUNTER → 2024-07-11 09:50 | Outpatient (BNVA) | payer OTHER, SELFPAY | PROVIDERS: PCP Physician Assistant; Visit Provider Physician Assistant | DX: Z23 Encounter for immunization (principal) | CPT/HCPCS: 90471; 90707 ==

== ENCOUNTER 2024-07-15 15:38 | Outpatient (AMB) | payer OTHER, SELFPAY ==
--- NOTE | 2024-07-15 15:50 | A.OFFPC_ITS ---
Vital Signs 07/15/24 16:03 Height 5 ft 5 in Weight 109 lb BMI 18.1 BP 104/68 Blood Pressure Location Lt brachial Position Sitting Pulse 72 Pulse Source Pulse Oximeter Pulse Oximetry (%) 100 Oxygen Delivery Method Room Air Intake Visit Reasons: Sore throat Physician Practice Manager Required: No Accompanied by: Self / Same As Patient Allergies No Known Allergies Allergy (Verified 07/15/24 16:13) Medication List - Last Reconciled 07/15/24 by Yonis Steward PA-C clonidine HCl 0.1 mg PO BID PRN etonogestrel (Nexplanon) subdermal fluoride (sodium) 1.1% (Denta 5000 Plus) appl PO fluticasone propionate 50 mcg/actuation intranasal lisdexamfetamine (Vyvanse) 30 mg PO QAM oxcarbazepine (Trileptal) 600 mg PO BEDTIME quetiapine (Seroquel) 300 mg PO BEDTIME Tobacco use date assessed: 08/03/23 Dental Screening Dental Screen Date: 08/03/23 HPI Sore throat HPI Details The patient is a 24-year-old female presenting with a sore throat. The symptoms began just before with a sore and itchy throat. Initially, the patient consulted a physician at [facility], where she was prescribed Fluticasone nasal spray (Flonase). Following two weeks of treatment, the itching subsided, but the sore throat persisted. The patient reports that the sensation of something being stuck in her throat at the beginning of May has resolved. Physical discomfort is limited to the sides of the throat, particularly noticeable when tilting her head upwards. There have been no associated fevers, chills, or changes in voice. Prior examination revealed fluid presence in ears, although the patient denies any current ear discomfort. Additionally, the patient reports the presence of palpable nodes on both sides of her neck. She has attempted nicotine patches as an alternative to vaping, but ceased use due to believed allergic reactions. The patient recently acquired a nicotine gum prescription to assist in smoking cessation. [facility] Medical History Screening for diabetes mellitus (DM) Flat feet, bilateral Annual physical exam Hx of substance abuse Depression, major, in partial remission Family History Mother Lung cancer metastatic to brain Father No problems noted. 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 [employer] Cognitive needs: No Hearing needs: No Vision needs: Yes Female Reproductive History Menstrual Age of Menarche: 13 Questionnaire Thrive Questionnaire Date Thrive assessed: 04/11/24 I am a: Patient What is your living situation today?: I have a steady place to live Within the past 12 months, did the food you bought not last and you didn't have the money to get more?: Never true Within the past 12 months, did you worry whether your food would run out before you got money to buy more?: Never true Do you have trouble paying for medicines?: No Do you have trouble getting transportation to medical appointments?: No Do you have trouble paying your heating and electricity bill?: No Do you have trouble taking care of your child, family member or friend?: No Do you have trouble with day-to-day activities such as bathing, preparing meals, shopping, managing finances, etc.?: No Are you currently unemployed and looking for a job?: I choose not to answer this question Are you interested in more education?: Yes Please select the resources that you would like help with: None Currently or been in a relationship where the following occur: I choose not to answer THRIVE Score: 0 MARY-7 AMB Questionnaire MARY-7 Date MARY - 7 assessed: 04/11/24 Source: Developed by Drs. Baltazar Granados, Estelle Taylor, David Brandt and colleagues, with an educational izabel from [employer]. Review of Systems Const Denies headache(s) Eyes Denies loss of vision ENT Denies vertigo, Denies dizziness, Denies headache(s) and Denies sore throat Card Denies chest pain, Denies leg edema and Denies lightheadedness Resp Denies cough, Denies hemoptysis and Denies wheezing GI Denies abdominal pain, Denies melena, Denies constipation, Denies diarrhea and Denies vomiting Denies urinary frequency, Denies dysuria and Denies urinary urgency Musc Denies arthralgias, Denies joint swelling, Denies numbness and Denies tingling Neuro Denies Abnormal speech present, Denies behavioral changes, Denies vertigo, Denies dizziness, Denies headache(s), Denies loss of vision, Denies memory loss, Denies numbness and Denies tingling Psych Denies anxiety, Denies behavioral changes, Denies depression, Denies memory loss and Denies panic attacks Abilio/Lymph Denies easy bleeding and Denies easy bruising Aller/Immun Denies wheezing Physical exam (Primary Care) Vital Signs: Last Vital Signs Pulse 72 07/15/24 16:03 BP 104/68 07/15/24 16:03 Pulse Ox 100 07/15/24 16:03 Oxygen Delivery Method Room Air 07/15/24 16:03 BMI result Body Mass Index 18.1 Tobacco/Smoking Status: Tobacco use Status Tobacco use date assessed 08/03/23 07/15/24 15:50 Patient Tobacco Use Status Current everyday Tobacco 07/15/24 15:50 Tobacco use type Smokeless Tobacco 07/15/24 15:50 e-Cigarette/Vaping Use Currently Using 07/15/24 15:50 Thrive Assessment: Date of Thrive Assessment Date Thrive assessed 04/11/24 07/15/24 15:50 Currently or been in a relationship where the following occur: I choose not to answer Const General: healthy appearing, no acute distress, alert and awake Nutritional Appearance: well nourished Orientation/consciousness: oriented to person, oriented to place and oriented to time [facility] Ears: TM's normal bilaterally General nose exam: Normal nasal mucous membranes and turbinates present Eyes Conjunctivae: conjunctivae normal Sclerae: sclerae normal Pupils: Equal, round and reactive pupils present Neck Other: NOTED PALPABLE ANTERIOR MILD LYMPHADENOPATHY. Neck: Yes no JVD Thyroid: Thyroid normal Carotids: no bruits Resp Effort & Inspection: normal respiratory effort and not tachypneic Auscultation: no crackles, no rales, no rhonchi and no wheezes Cardio Rate: regular rate Rhythm: regular rhythm Heart sounds: no murmurs and normal S1 and S2 GI Palpation (GI): Soft to palpation, nontender, no hepatomegaly and no splenomegaly Auscultation: normal bowel sounds Skin General skin exam: no rashes or lesions noted and dry skin Neuro General: oriented to person, oriented to place and oriented to time Cranial nerves: Yes Equal, round and reactive pupils present Speech: No Abnormal speech present Gait exam (Neuro): Normal gait present Motor exam (neuro): no tremor noted Extrem Right upper extremity: full ROM Left upper extremity: full ROM Right lower extremity: full ROM; no edema Left lower extremity: full ROM; no edema Psych Mental Status: mental status grossly normal Speech and movement: Normal speech and movement present Affect: normal affect Attitude: cooperative Thought process: Normal thought process present Coding Level of Care Code Est Pt Level 3 (02353) Diagnoses Pharyngitis, unspecified etiology J02.9 Pharyngitis/tonsillitis etiology: unspecified etiology Assessment & Plan Assessment & Plan (1) Pharyngitis: Code(s): J02.9 - Acute pharyngitis, unspecified Category: Medical Qualifiers: Pharyngitis/tonsillitis etiology: unspecified etiology Qualified Code(s): J02.9 - Acute pharyngitis, unspecified Plan: Patient does not appear ill or have any signs of apparent infection. Advised to reduce her V breasts cigarette use which is likely the cause of her throat discomfort. Prescribe an antibiotic to cover possible bacterial throat infection despite the absence of visual infection indicators. - Advise using nicotine gum as discussed with the patient's psychiatrist. - Recommend changing the toothbrush as a precautionary measure if bacterial infection was present previously. Medications: New amoxicillin 500 mg PO Q8H 21 tabs 0RF 7 days J02.9 - Acute pharyngitis, unspecified
[2024-07-15 16:03] VITALS: BP 104/68; PULSE 72; O2SAT 100; BMI 18.1
== END 2024-07-15 16:23 | disposition home or self-care (01) ==
PROVIDERS: PCP Physician Assistant; Visit Provider Physician Assistant
DX: J02.9 Acute pharyngitis, unspecified (principal)

== ENCOUNTER → 2024-07-15 15:38 | Outpatient (BNVA) | payer OTHER, SELFPAY | PROVIDERS: PCP Physician Assistant; Visit Provider Physician Assistant | DX: J02.9 Acute pharyngitis, unspecified (principal); F17.290 Nicotine dependence, other tobacco product, uncomplicated | CPT/HCPCS: 99212 ==

== ENCOUNTER 2024-08-07 12:54 | Outpatient (REF) | payer OTHER, SELFPAY ==
--- NOTE | ~2024-08-07 | US_ITS ---
EXAMINATION: US SOFT TISSUE HEAD AND OR NECK. CLINICAL INFORMATION: Localized enlarged lymph nodes. Patient states tender palpable lymph node in left neck level II. COMPARISON: None available. TECHNIQUE: Linear transducer portillo-scale and color Doppler examination of the bilateral neck FINDINGS: NODES: -No pathologic lymphadenopathy present within the neck. -Reactive appearing normal morphology lymph nodes present bilaterally, with largest in the left neck level II measuring 2.5 x 0.8 x 1.8 cm. This demonstrates normal fatty hilum, preserved reniform appearance, with no suspicious features. -Subcentimeter normal appearing right level 2 lymph nodes present with normal normal morphology. -No abnormal soft tissue fluid collection identified. US/US soft tiss head and/or neck IMPRESSION: 1. Mildly enlarged left level II lymph node measuring 2.5 x 0.8 x 1.8 cm. This likely represents the palpable and tender lymph node. Findings are consistent with a reactive lymph node. If there is high clinical suspicion, or symptoms persist, CT of the neck would be recommended. 2. Otherwise, normal reactive appearing lymph nodes in the bilateral cervical chains. No abnormal fluid collections. Electronically signed by: Shine Miguel MD 08/08/2024 08:[address] [facility]
--- OUTSIDE RECORDS SUMMARY | 2024-08-07 15:25 | XMS_ITS | Continuity of Care Document ---
Author Organization [place] - [facility] [address] Address [address] [place] [address] Care Team Providers Care Meter Reader Inspector Name Role Phone JUNG VALLEJO Primary Care Provider [phone] Assessment No assessment recorded. Plan of Treatment Reminders Order Date Submit Date Provider Last Modified By Organization Details Last Modified Time Details Appointments None recorded. Lab None recorded. Referral None recorded. Procedures None recorded. Surgeries None recorded. Imaging None recorded. Medication Orders fluticasone propionate 50 mcg/actuati on nasal spray,suspe nsion 2023 024 [id number], [address] [facility] [place], [address], 4 11:39:02 Patient TargetsNo targets recorded. Patient Instructions Encounter Date Encounter Id Patient Instructions Last Modified By Organization Details Last Modified Time 06/16/2024 [id number] upper respirator y infection (cold): care instructions Not available 06/16/2024 11:06:07 Reason for Referral None Reported. Problems Name Problem SNOMED Code Status Onset Date Resolution Date Notes Provider Name and Address Organization Details Recorded Time Bipolar disorder 64031330 Active Milvia Ruszala null, [place] - [facility] 3 16:45:44 Posttraumatic stress disorder 00468342 Active Milvia Ruszala null, [place] - [facility] 3 16:45:54 Attention deficit hyperactivity disorder 468146517 Active Dasha Upham null, [place] - [facility] 4 13:33:56 [...] Last Updated DateTime 165.1 cm 18.3 kg/m2 23869.1 6 g 18 /min 97.7 [degF] 95 /min 99 % 99 % 107 mm[Hg] 75 mm[Hg] Jaci Golden PA [facility] 11:01:27 Social History Question Answer Notes LastModified by [employer] Details LastModified Time Tobacco Smoking Status Former Smoker Jaci galeas [place] - [facility] 06/16/2024 11:00:05 What Is Your Level [...] Use Any Illicit Or Recreational Drugs? Yes [place] Information not available 02/29/2024 Have You Recently [...] Diagnosis/Indication Diagnosis SNOMED-CT Code Diagnosis ICD10 Code Diagnosis Note [id number] KIMBERLY Sharp [address] [place] [address] 06/16/2024 10:54:11 06/16/2024 11:07:51 Upper respiratory infection 52513631 J06.9 Patient presented with symptoms of upper respirator y infection. Advised to drink plenty of fluids, run a cool-mist humidifier in room at night, gargle salt water for sore throat, and get plenty of rest. Patient should avoid over-exert ion and reduce exposure to irritants such as smoke, cold, dry air, and dust.Treat ment currently involves symptomati c relief. Nasal sprays like nasonex and flonase (or generic) as well as neti pot to help clear sinuses Patient may take acetaminop hen or ibuprofen as directed to reduce fever and body aches.Anti histamine and decongesta nt usage was discussed and recommenda tions made.Gypsy nt understood these instructio ns and will follow up in the office in 10 days to 2 weeks if symptoms not improving. ER if any shortness of breath/chad st pain or worsening. Thank you for using [facility] today, please feel free to contact our office if you have any questions or concerns. Health Concerns Section Related Observation LastModified by Organization Detai ls LastModified Time None Recorded Concern Status LastModified by Organization Details LastModified Time None Recorded Payers Encounter Date Sequence Insurance Name Policy Number Policy Zamudio Covered Member ID Zamudio Member ID Guarantor Name 06/16/2024 1 [facility] PUBLIC PLANS [facility] TYPE I (HMO) [id number] Paige Mahinjtczak [id number] Paige Gusman Notes Date Note Type Note Provider Name and Address Organization Details Recorded Time 06/16/2024 text/html 23 y/o female here with 3 days of congestion, sore throat, ear pain, no fevers, chills, body aches. KIMBERLY Sharp [facility]ly [facility], [facility] [place], [address], [place] - [facility] 06/16/2024 11:10:35 OBGyn Episode No OBEpisode recorded.
== END 2024-08-07 12:55 | disposition home or self-care (01) ==
LOC: HO.HMGCX 12:54
PROVIDERS: PCP Physician Assistant; Visit Provider Physician Assistant
DX: R59.0 Localized enlarged lymph nodes (principal)
CPT/HCPCS: 76536

== ENCOUNTER → 2024-08-07 12:55 | Outpatient (BNV) | payer OTHER, SELFPAY | PROVIDERS: PCP Physician Assistant; Visit Provider Radiology Diagnostic Radiology | DX: R59.0 Localized enlarged lymph nodes (principal) | CPT/HCPCS: 76536 ==

== ENCOUNTER 2024-10-16 15:43 | Outpatient (REF) | payer OTHER, SELFPAY ==
--- NOTE | ~2024-10-16 | CT_ITS ---
CLINICAL HISTORY: R59.0 - Localized enlarged lymph nodes CT soft tissue neck with contrast Comparison: None Findings: The visualized intracranial contents are unremarkable. No prevertebral fluid. Epiglottis is within normal limits. Pharyngeal mucosal space and parapharyngeal fat are normal. Salivary glands are within normal limits. No sialoliths. Thyroid gland is unremarkable. Visualized lung apices are clear. No acute fractures. IMPRESSION: No acute findings. This document has been electronically signed by: Juan Flores MD on 10/17/2024 18:13:43
[2024-10-16] MEDS: iohexoL 350 MG/ML 100 ML INFUS..BTL IV (16:28)
--- OUTSIDE RECORDS SUMMARY | 2024-10-16 18:43 | XMS_ITS | Encounter Summary ---
Author Organization [employer] [facility] Address [address] [place] [address] Care Team Providers Care [employer] Field Supervisor Name Role Phone Unavailable Primary Care Provider Unavailabl e Encounter Details Date Type Department Care Team (Late st Contact Info) Description 10/04/2024 Population Health Risk Score [facility] (C3) Department [address] [id number] Provider, Population Health Generic Social History Tobacco Use Types Packs/Day Years Used Date Smoking Tobacco: Never Assessed Comments Unknown Sex and Gender Information Value Date Recorded Sex Assigned at Not on file Legal Sex Female 1:47 PM EST Gender Identity Not on file Sexual Orientation Not on file documented as of this encounter Plan of Treatment Not on file documented as of this encounter Visit Diagnoses Not on filedocumented in this encounter
--- OUTSIDE RECORDS SUMMARY | 2024-10-16 18:43 | XMS_ITS | Data Portability ---
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 Plan of Treatment Reminders Order Date Submit Date Provider Last Modified By Organization Details Last Modified Time Details Appointments None recorded. Lab test, urine 2023 024 [facility], [address] [place], [address], 4 12:48:10 urinalysis, dipstick 2023 024 [facility], [address] [place], [address], 4 12:48:11 rapid strep group A, throat 2023 024 JAX _[facility], [address] [place], [address], 4 18:15:44 Referral None recorded. Procedures None recorded. Surgeries None recorded. Imaging None recorded. Medication Orders fluticasone propionate 50 mcg/actuati on nasal spray,suspe nsion 2023 024 [facility]acy #[id number], [address] [place], [address], 11:39:02 valacyclovi r 1 gram tablet 2023 024 [id number] [address] [facility] [place], [address], 12:33:50 fluticasone propionate 50 mcg/actuati on nasal spray,suspe nsion 2023 024 [id number] [address] [facility] [place], [address], 18:14:49 Ciloxan 0.3 % eye drops 2022 023 [facility]/Pharmacy #[id number], [address] [facility] [place], [address], 17:58:48 Patient TargetsNo targets recorded. Patient Instructions Encounter Date Encounter Id Patient Instructions Last Modified By Organization Details Last Modified Time 01/26/2023 [id number] subconjunctival hemorrhage: care instructions [email or web address] Not available 01/26/2023 17:43:20 Based on your [...] next 1 week. Thank you for using [facility] today, please feel free to contact us with any questions or concerns. [email or web address] Not available 01/26/2023 17:43:14 02/29/2024 [id number] sore throat: car e instructions Not available 02/29/2024 18:14:47 03/04/2024 [id number] shingles: care instructions Not available 03/04/2024 13:42:54 03/18/2024 [id number] diarrhea: care instructions Not available 03/18/2024 12:48:08 tension headache : care instructions Not available 03/18/2024 12:48:08 06/16/2024 [id number] upper respirator y infection (cold): care instructions Not available 06/16/2024 11:06:07 Reason for Referral None Reported. Results Created Date Observation Date Name Description Value Unit Range Abnormal Flag Note LastModifiedBy Organization Detail LastModifiedTime 02/29/2002/29/2024 rapid strep group A, throa t Unknown Analyte negati ve Not Available joe scott [address] [place] [address], 02/29/2024 18:10:37 02/29/2002/29/2024 rapid strep group A, throa t Unknown Analyte yes Not Available [address] [place], [address], 02/29/2024 18:10:37 03/18/2003/18/2024 urina lysis , dipst ick Unknown Analyte Yellow Not Available [address] [place], [address], 03/18/2024 12:35:04 03/18/2003/18/2024 urina lysis , dipst ick Unknown Analyte Slight ly Cloudy Not Available [facility] [address] [place], [address], 03/18/2024 12:35:04 03/18/2003/18/2024 urina lysis , dipst ick Unknown Analyte Negati ve Not Available [facility] [address] [place], [address], 03/18/2024 12:35:04 03/18/2003/18/2024 urina lysis , dipst ick Unknown Analyte Negati ve Not Available [facility] [address], [address], 03/18/2024 12:35:04 03/18/20 24 03/18/2024 urina lysis , dipst ick Unknown Analyte Negati ve Not Available joe scott [address] [place], [address], 03/18/2024 12:35:04 03/18/20 24 03/18/2024 urina lysis , dipst ick Unknown Analyte 1.030 Not Available robe [address] [place], [address], 03/18/2024 12:35:04 03/18/2003/18/2024 urina lysis , dipst ick Unknown Analyte Trace- intact Not Available joe scott [address] [place], [address], 03/18/2024 12:35:04 03/18/2003/18/2024 urina lysis , dipst ick Unknown Analyte 6.0 Not Available robe [address] [place], [address], 03/18/2024 12:35:04 03/18/2003/18/2024 urina lysis , dipst ick Unknown Analyte 100 mg/dL Not Available joe scott [address] [place], [address], 03/18/2024 12:35:04 03/18/2003/18/2024 urina lysis , dipst ick Unknown Analyte 0.2 E.U./d L Not Available [facility] [address] [place], [address], 03/18/2024 12:35:04 03/18/20 24 03/18/2024 urina lysis , dipst ick Unknown Analyte Negati ve Not Available joe scott [address] [place], [address], 03/18/2024 12:35:04 03/18/20 24 03/18/2024 urina lysis , dipst ick Unknown Analyte Negati ve Not Available 2099faith scott [address], [address], 03/18/2024 12:35:04 03/18/20 24 03/18/2024 pregn basilio test, urine Unknown Analyte negati ve Not Available 2099faith scott [address], [address], 03/18/2024 12:34:58 03/18/20 24 03/18/2024 pregn basilio test, urine Unknown Analyte yes Not Available 2099Aparna nagel [address], [address], 03/18/2024 12:34:58 Result Notes None recorded. Problems Name Problem SNOMED Code Status Onset Date Resolution Date Notes Provider Name and Address Organization Details Recorded Time Bipolar disorder 26395505 Active Milvia King null, [place] - [facility] 3 16:45:44 Posttraumatic stress disorder 37362002 Active Milvia King null, PA - [facility] 3 16:45:54 Attention deficit hyperactivity disorder 540627016 Active Dasha Magazine null, PA - [facility] 4 13:33:56 [...] mass index (BMI) Body weight Respiratory rate Pain severity - 0-10 verbal numeric rating [Score] - Reported Oxygen saturation Oxygen saturation in Arterial blood by Pulse oximetry Heart rate Body temperature Systolic blood pressure Diastolic blood pressure Provider Name and Address Organization Details Last Updated DateTime 3 165.1 cm 17.5 kg/m2 49014.2 g 16 /min 4 100 % 100 % 57 /min 97.4 [degF] 118 mm[Hg] 63 mm[Hg] Milvia King PA - [facility] 3 16:51:44 Date Recorded Body height Body mass index (BMI) Body weight Body temperature Oxygen saturation Oxygen saturation in Arterial blood by Pulse oximetry Heart rate Pain severity - 0-10 verbal numeric rating [Score] - Reported Respiratory rate Systolic blood pressure Diastolic blood pressure Provider Name and Address Organization Details Last Updated DateTime 4 165.1 cm 17.6 kg/m2 33614.7 9 g 98.9 [degF] 97 % 97 % 100 /min 5 16 /min 130 mm[Hg] 89 mm[Hg] Kanu Segovia PA - [facility] 4 18:04:57 Date Recorded Body height Body mass index (BMI) Body weight Pain severity - 0-10 verbal numeric rating [Score] - Reported Oxygen saturation Oxygen saturation in Arterial blood by Pulse oximetry Heart rate Body temperature Systolic blood pressure Diastolic blood pressure Provider Name and Address Organization Details Last Updated DateTime 4 165.1 cm 17.6 kg/m2 76395.7 9 g 5 98 % 98 % 118 /min 98.4 [...] Updated DateTime 4 165.1 cm 17.6 kg/m2 01606.7 9 g 97 % 97 % 98 /min 18 /min 97.7 [degF] 110 mm[Hg] 75 mm[Hg] Jaci Golden PA - [facility] 4 12:35:15 Date Recorded Body height Body mass index (BMI) Body weight Respiratory rate Body temperature Heart rate Pain severity - 0-10 verbal numeric rating [Score] - Reported Oxygen saturation Oxygen saturation in Arterial blood by Pulse oximetry Systolic blood pressure Diastolic blood pressure Provider Name and Address Organization Details Last Updated DateTime 4 165.1 cm 18.3 kg/m2 20852.1 6 g 18 /min 97.7 [degF] 95 /min 0 99 % 99 % 107 mm[Hg] 75 mm[Hg] Jaci Golden PA [facility] 4 11:01:27 Social History Question Answer Notes LastModified by Organizat ion Details LastModified Time Tobacco Smoking Status Former Smoker Jaci galeas PA [place] [facility] 06/16/2024 11:00:05 What Is Your [...] Use Any Illicit Or Recreational Drugs? Yes [place] Information not available 02/29/2024 Have You Recently [...] SNOMED-CT Code Diagnosis ICD10 Code Diagnosis Note [id number] [address] [address] 02/28/2020 08:41:41 02/28/2020 09:59:[id number] [address] 01/01/2020 17:39:33 01/01/2020 18:38:09 [id number] [address] [place] [address] 04/02/2017 10:54:40 04/02/2017 12:09:42 [id number] [address] [place] [address] 06/25/2017 16:04:32 06/25/2017 17:23:20 [id number] KIMBERLY STRAUSS [address] [place] [address] 01/26/2023 16:15:06 01/26/2023 17:46:34 Subconjunctival hemorrhage of right eye [id number] 89312 H11.31 No FB or retained [place] Spine in the eye. On fluoroscei n staining there is no scratches. I am going to put you on an antibiotic s to be precaution s. No contacts for 5 more days. This area is going to turn a dark brown color and then it will slowly resolve. [id number] KIMBERLY Sharp [address] [place] [address] 02/29/2024 17:53:10 02/29/2024 18:19:31 Acute pharyngitis [id number] J02.9 Based on your Presentati on, Exam, and Lab Testing you are being diagnosed with Pharyngiti s. Your Rapid Strep Test was Negative. Most likely your sore throat is being caused by a virus, post nasal drip, or silent acid reflux. The following are my other recommenda tions to help with symptoms and is important for this diagnosis: 1. Take Ibuprofen or Tylenol if you do not have any allergies to these medication s. If you take a blood thinner you should not take NSAIDS like Ibuprofen. These medication will help with the inflammati on in your respirator y tract which should help the cough. (I would alternate between Tylenol 650 mg and your Ibuprofen 600 mg every 4 hours)2. Steroid nasal sprays like Flonase or Nasonex (or generic) can help with postnasal drainage2. Do not take any Cold Medication s that have a Decongesta nt in it - this will dry out your throat and make the sore throat worse.3. Drinking Hot Tea with honey can help coat and soothe your throat. I would be seen again if you develop any of the following symptoms.1 . Fever > 101.02. Stiff neck - where you can't turn your neck3. Trouble swallowing your saliva - drooling4. Swelling of a lymph node in your throat that is painful to touch5. Difficulty breathing6 . Severe Headache Thank you for using [facility] today, please feel free to contact our office if you have any questions or concerns. [id number] KIMBERLY Sharp [address] [facility] [address] [place] [address] 03/04/2024 13:28:31 03/04/2024 13:44:42 Herpes zoster [id number] B02.9 You have been diagnosed with herpes zoster (shingles) . Recommend taking tylenol or ibuprofen as needed for pain, please take as directed on the package labeling.? ??Shingles is a painful rash that is usually shaped like a band. It can affect people of all ages, but it is most common in those older than 50. It is also more common in people whose immune system (the body's infection- fighting system) is weaker than normal. Another name for shingles is herpes zoster. ?Shingl es is caused by a virus called varicella- zoster virus. This is the same virus that causes chickenpox . After someone has chickenpox , the virus sometimes hides out, asleep in the body. Years later, it can wake up and cause shingles. The first time a person is infected with that virus, they get chickenpox , not shingles.? ??It is not possible to catch shingles from someone who has the rash. But if you have never had chickenpox or gotten the chickenpox vaccine, it is possible to catch the virus and then get sick with chickenpox . Shingles and chickenpox are caused by the same virus.It is not possible to catch shingles from someone who has the rash. But if you have never had chickenpox or gotten the chickenpox vaccine, it is possible to catch the virus and then get sick with chickenpox . Shingles and chickenpox are caused by the same virus.???S ome people have a higher risk than others for getting very sick or having other problems because of chickenpox . People at highest risk include:?People who are ? people can pass the chickenpox virus to their growing baby. ???Prematu re babies?People whose immune system (the body's infection- fighting system) is weaker than normal--> recommend avoiding those individual s listed above.???P eople can reduce their chances of getting shingles by getting the shingles vaccine. The vaccine might also make the symptoms of shingles milder if they do occur. Vaccinatio n is typically recommende d for adults over 50 years. In some cases, it might also be recommende d for younger adults, if their immune system is weaker than normal. Your doctor can tell you if you should get a shingles vaccine.?If you do get shingles, you can prevent spreading it to other people by:? Keeping your rash covered? Washing your hands often until your rash has scabbed over??? Thank you for using [facility] today, please feel free to contact our office if you have any questions or concerns. [id number] KIMBERLY Sharp [address] [place] [address] 03/18/2024 12:29:10 03/18/2024 12:49:40 Diarrhea [id number] R19.7 Based on your presentati on and exam you are being diagnosed with Diarrhea. Diarrhea can be caused by multiple things - virus, bacterial, exposure to food that is not tolerated. Diarrhea caused by infections usually results from eating or drinking contaminat ed food or water. Signs and symptoms of infection usually begin 12 hours to four days after exposure and resolve within three to seven days. Most cases of acute diarrhea are due to infections and are self-limit ed.Acute ? 14 days or fewer in duration Persistent diarrhea ? more than 14 but fewer than 30 days in duration Chronic ? more than 30 days in duration Diarrhea not related to an infection can occur as a side effect of antibiotic s or other drugs, food allergies, gastrointe stinal diseases such as inflammato ry bowel disease, and other diseases. The following are my recommenda tions to help with your symptoms:1 . Drink adequate fluids ? If you have mild to moderate diarrhea, you can usually be treated at home by drinking extra fluids. The fluids should contain water, salt, and sugar. Avoid Gatorade however, but Pedialyte is ok.2. Diet ? There is no particular food or group of foods that is best while you have diarrhea. However, adequate nutrition is important during an episode of acute diarrhea. If you do not have an appetite, you can drink only liquids for a short period of time. Boiled starches and cereals (eg, potatoes, noodles, rice, wheat, and oats) with salt are recommende d if you have watery diarrhea; crackers, bananas, soup, and boiled vegetables may also be eaten.3. Preventing spread ? Adults with diarrhea should be cautious to avoid spreading infection to family, friends, and co-workers . You are considered infectious for as long as diarrhea continues. Microorgan isms causing diarrhea are spread from hand to mouth.4. Frequent Hand Washing Antibiotic s are not needed in most cases of acute diarrhea, and they can cause further complicati ons if used inappropri ately. Antibiotic s may be recommende d in certain situations . If diarrhea continues - Stool Culture would be indicated. You need to be seen again if you develop any of the following and the ER may be needed for IV fluids.1. More than eight loose stools per day lasting longer than 5 days.2. Fever3. Bloody stool4. Dehydratio n5. Symptoms that continue for more than one week6. A weakened immune system7. You require hospitaliz ation Thank you for using [facility] today, Please feel free to contact our office if you have any questions or concerns. Tension-type headache 39 9037073 G44.377 Headaches are extremely common - most people have a headache at some time in their life. Most headaches disappear on their own (with a little time) or with the help of mild pain relievers. Although most headaches are mild and temporary annoyances , some people have headaches that are so severe they need to consult a doctor for pain relief.Alt damari headaches can be painful and debilitati ng, they are usually not due to dangerous conditions . However, headaches can occasional ly be a sign of something more serious. It's critical that you seek emergency medical care if you experience a headache that: 1. Gets worse over days or weeks2. Is accompanie d by impaired neurologic al function (e.g., loss of balance, weakness, numbness, or speech disturbanc e) and double vision (could signal a stroke)3. Is accompanie d by persistent nausea and vomiting4. Is accompanie d by seizures, mental disturbanc es, and loss of consciousn ess5. Is associated with a fever or stiff neck (could signal meningitis )6. Is different than the usual pattern of headaches you have experience d7. Strikes suddenly with great intensity8 . Wakes you from sleep or is worse when you lie down Thank you for using [facility] today, please feel free to contact our office if you have any questions or concerns. [id number] KIMBERLY Sharp [address] [facility] [address] [place] [address] 06/16/2024 10:54:11 06/16/2024 11:07:51 Upper respiratory infection 73472702 J06.9 Patient presented with symptoms of upper [...] Zamudio Member ID Guarantor Name 01/26/2023 1 [facility]MERLY [facility] - DIRECT CONNECTORCARE TYPE I (HMO) [id number] Paige Gusman [id number] Paige Bustostcmarilyn 02/29/2024 1 FOR[facility]LY [facility] - DIRECT CONNECTORCARE TYPE I (HMO) [id number] Paige Orozcok [id number] 02 Paige Gusman 03/04/2024 1 FOR[facility] - DIRECT CONNECTORCARE TYPE I (HMO) [id number] Paige Gusman [id number] 02 Paige Gusman 03/18/2024 1 [facility] - DIRECT CONNECTORCARE TYPE I (HMO) [id number] Paige Gusman [id number] 02 Paige Gusman 06/16/2024 1 [facility] - DIRECT CONNECTORCARE TYPE I (HMO) [id number] Paige Gusman [id number] 02 Paige Gusman Notes Date Note Type [...] on January 24 she ran into a [employer]. She reports that she had contact in. [...] not been wearing contacts. KIMBERLY STRAUSS [address] [place], [address], [place] - [facility] 01/26/2023 18:04:51 4 text/html 23 y/o female here with upper chest tightness, no change with breathing, and sore throat. Started 2 days ago, no improvement with OTC meds, though she did not smoke marijuana or her vape today and feels a bit better.No fevers, chills, drinking some herbal tea that's helping her cough up some mucus KIMBERLY Sharp, [place], [address], [place] - [facility] 02/29/2024 18:17:21 4 text/html 23 y/o female here with rash to the back of her head, painful on the right side, itchy on the left, but pain and itch feels like it's radiating along her head [place], [address], PA - [facility] 03/04/2024 13:45:58 4 [...] ease up, but then starts again. KIMBERLY Sharp, [place], [address], [place] - [facility] 03/18/2024 12:56:47 4 text/html 23 y/o female here with 3 days of congestion, sore throat, ear pain, no fevers, chills, body aches. [place], [address], [place] - [facility] 06/16/2024 11:10:35 OBGyn Episode No OBEpisode recorded.
--- OUTSIDE RECORDS SUMMARY | 2024-10-16 18:43 | XMS_ITS | Clinical Summary ---
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 Phone Unavailable Primary Care Provider Unavailabl e Encounters Date Type Department Care Team Description 10/04/2024 Population Health Risk Score [facility] (C3) Department [address] [address] Provider, Population Health Generic from Last 3 Months Social History Tobacco Use Types Packs/Day Years Used Date Smoking Tobacco: Never Assessed Comments Unknown Sex and Gender Information Value Date Recorded Sex Assigned at Not on file Legal Sex Female 1:47 PM EST Gender Identity Not on file Sexual Orientation Not on file Plan of Treatment Health Maintenance Due Date Last Done Comments Depression Screening 2000 HIV Screening 2000 SDOH Screening 2000 Alcohol/Substance Use Screening 2012 Tobacco Screening 2012 Family Planning (PISQ) 2015 HPV Vaccines (1 - 3-dose series) 2015 Hepatitis C Screening 2018 DTaP/Tdap/Td Vaccines (1 - Tdap) 2019 Hepatitis B Vaccines (1 of 3 - 19+ 3-dose series) 2019 Pap Smear 2021 COVID-19 Vaccine (1 - 2023-2 5 season) 2024 Influenza Vaccine (#1) 2024 Zoster Vaccines (1 of 2) 2050 RSV Patients and Pa tients Aged 60 years or older (1 - 1-dose 75+ series) 2075 HIB Vaccines Aged Out No longer eligi ble based on patient's age to complete this topic Hepatitis A Vaccines Aged Out No long er eligible based on patient's age to complete this topic IPV Vaccines Aged Out No longer eligi ble based on patient's age to complete this topic Meningococcal Vaccine Aged Out No brady aroldo eligible based on patient's age to complete this topic Pneumococcal Vaccine: Pediat rics (0 to 5 Years) and At-Risk Patients (6 to 49) Years) Aged Out No longer eligible b ased on patient's age to complete this topic RSV under 20 months Aged Out No longe r eligible based on patient's age to complete this topic Rotavirus Vaccines Aged Out No longer eligible based on patient's age to complete this topic
== END 2024-10-16 15:44 | disposition home or self-care (01) ==
LOC: HO.CT 15:43
PROVIDERS: PCP Physician Assistant; Visit Provider Physician Assistant
DX: R59.0 Localized enlarged lymph nodes (principal)
CPT/HCPCS: 70491; Q9967

== ENCOUNTER → 2024-10-16 15:45 | Outpatient (BNV) | payer OTHER, SELFPAY | PROVIDERS: PCP Physician Assistant; Visit Provider Specialist | DX: R59.0 Localized enlarged lymph nodes (principal) | CPT/HCPCS: 70491 ==

== ENCOUNTER 2024-11-08 09:21 | Outpatient (REF) | payer OTHER, SELFPAY ==
--- OUTSIDE RECORDS SUMMARY | 2024-11-08 09:50 | XMS_ITS | Clinical Summary ---
Author Organization [employer] Address [address] [facility] [address] [place] [address] Care Team Providers Care Orthodontist Name Role Phone Unavailable Primary Care Provider Unavailabl e Encounters Date Type Department Care Team Description 10/04/2024 Population Health Risk Score [facility] (C3) Department [address] [address] Provider, Population Health Generic from [...]
--- OUTSIDE RECORDS SUMMARY | 2024-11-08 09:51 | XMS_ITS | Data Portability ---
Author Organization KIMBERLY Corrales [facility], [address] Address [address] [place] [address] Care Team Providers Care Line Controller Name Role Phone JUNG VALLEJO Primary Care Provider [phone] Assessment No assessment recorded. Plan of Treatment Reminders Order Date Submit Date Provider Last Modified By Organization Details Last Modified Time Details Appointments None recorded. Lab test, urine 2023 024 _[facility], [address] [place], [address], 4 12:48:10 urinalysis, dipstick 2023 024 _[facility], [address] [place], [address], 4 12:48:11 rapid strep group A, throat 2023 024 JAX _[facility], [address] [place], [address], 4 18:15:44 Referral None recorded. Procedures None recorded. Surgeries None recorded. Imaging None recorded. Medication Orders fluticasone propionate 50 mcg/actuati on nasal spray,suspe nsion 2023 024 [facility] #[id number], [address] [place], [address], 11:39:02 valacyclovi r 1 gram tablet 2023 024 [id number], [address] [facility], [address], 12:33:50 fluticasone propionate 50 mcg/actuati on nasal spray,suspe nsion 2023 024 [id number], [address] [facility], [address], 18:14:49 Ciloxan 0.3 % eye drops 2022 023 [facility] #[id number], [address] [facility], [address], 17:58:48 Patient TargetsNo targets recorded. Patient Instructions Encounter Date Encounter Id Patient Instructions Last Modified By Organization Details Last Modified Time 01/26/2023 [id number] subconjunctival hemorrhage: care instructions Not available 01/26/2023 [...] next 1 week. Thank you for using [employer] today, please feel free to contact us with any questions or concerns. [email or web address] Not available 01/26/2023 17:43:14 02/29/2024 [id number] sore throat: car e instructions Not available 02/29/2024 18:14:47 03/04/2024 [id number] shingles: care instructions Not available 03/04/2024 13:42:54 03/18/2024 [id number] diarrhea: care instructions Not available 03/18/2024 12:48:08 tension headache : care instructions Not available 03/18/2024 12:48:08 06/16/2024 [id number] upper respirator y infection (cold): care instructions Not available 06/16/2024 11:06:07 Reason for Referral None Reported. Results Created Date Observation Date Name Description Value Unit Range Abnormal Flag Note LastModifiedBy Organization Detail LastModifiedTime 02/29/2002/29/2024 rapid strep group A, throa t Unknown Analyte negati ve Not Available joe scott [address] [place], [address], 02/29/2024 18:10:37 02/29/2002/29/2024 rapid strep group A, throa t Unknown Analyte yes Not Available [address] [place], [address], 02/29/2024 18:10:37 03/18/2003/18/2024 urina lysis , dipst ick Unknown Analyte Yellow Not Available [address] [place] [place], [address], 03/18/2024 12:35:04 03/18/2003/18/2024 urina lysis , dipst ick Unknown Analyte Slight ly Cloudy Not Available [facility] [address] [place], [address], 03/18/2024 12:35:04 03/18/2003/18/2024 urina lysis , dipst ick Unknown Analyte Negati ve Not Available [facility] [address] [place], [address], 03/18/2024 12:35:04 03/18/2003/18/2024 urina lysis , dipst ick Unknown Analyte Negati ve Not Available [facility] [address], [address], 03/18/2024 12:35:04 03/18/20 24 03/18/2024 urina lysis , dipst ick Unknown Analyte Negati ve Not Available joe scott [address] [place], [address], 03/18/2024 12:35:04 03/18/20 24 03/18/2024 urina lysis , dipst ick Unknown Analyte 1.030 Not Available robe [address] [place], [address], 03/18/2024 12:35:04 03/18/2003/18/2024 urina lysis , dipst ick Unknown Analyte Trace- intact Not Available joe scott [address] [place], [address], 03/18/2024 12:35:04 03/18/2003/18/2024 urina lysis , dipst ick Unknown Analyte 6.0 Not Available robe [address] [place], [address], 03/18/2024 12:35:04 03/18/2003/18/2024 urina lysis , dipst ick Unknown Analyte 100 mg/dL Not Available joe scott [address] [place], [address], 03/18/2024 12:35:04 03/18/2003/18/2024 urina lysis , dipst ick Unknown Analyte 0.2 E.U./d L Not Available [facility] [address] [place], [address], 03/18/2024 12:35:04 03/18/20 24 03/18/2024 urina lysis , dipst ick Unknown Analyte Negati ve Not Available joe scott [address] [place], [address], 03/18/2024 12:35:04 03/18/20 24 03/18/2024 urina lysis , dipst ick Unknown Analyte Negati ve Not Available 2099faith scott [address], [address], 03/18/2024 12:35:04 03/18/20 24 03/18/2024 pregn absilio test, urine Unknown Analyte negati ve Not Available 2099faith scott [address], [address], 03/18/2024 12:34:58 03/18/20 24 03/18/2024 pregn basilio test, urine Unknown Analyte yes Not Available 2099Aparna nagel [address], [address], 03/18/2024 12:34:58 Result Notes None recorded. Problems Name Problem SNOMED Code Status Onset Date Resolution Date Notes Provider Name and Address Organization Details Recorded Time Bipolar disorder 83712426 Active Milvia King null, [place] - [facility] 3 16:45:44 Posttraumatic stress disorder 01562083 Active Milvia King null, PA - [facility] 3 16:45:54 Attention deficit hyperactivity disorder 508865629 Active Dasha Renick null, PA - [facility] 4 13:33:56 [...] Updated DateTime 3 165.1 cm 17.5 kg/m2 81998.2 g 16 /min 4 100 % 100 [...] Updated DateTime 4 165.1 cm 17.6 kg/m2 95396.7 9 g 98.9 [degF] 97 % 97 [...] Updated DateTime 4 165.1 cm 17.6 kg/m2 14102.7 9 g 5 98 % 98 % [...] Updated DateTime 4 165.1 cm 17.6 kg/m2 06644.7 9 g 97 % 97 % 98 [...] Updated DateTime 4 165.1 cm 18.3 kg/m2 34485.1 6 g 18 /min 97.7 [degF] 95 [...] Use Any Illicit Or Recreational Drugs? Yes Carey Information not available 02/29/2024 Have You Recently [...] SNOMED-CT Code Diagnosis ICD10 Code Diagnosis Note [id number] [address] [address] 02/28/2020 08:41:41 02/28/2020 09:59:52 [id number] [address] [address] 01/01/2020 17:39:33 01/01/2020 18:38:09 [id number] [address] [place] [address] 04/02/2017 10:54:40 04/02/2017 12:09:42 [id number] [address] [facility] [place] [address] 06/25/2017 16:04:32 06/25/2017 17:23:20 [id number] KIMBERLY STRAUSS [address] [place] [address] 01/26/2023 16:15:06 01/26/2023 17:46:34 Subconjunctival hemorrhage of right eye [id number] 03464 H11.31 No FB or retained [place] [facility] in the eye. On fluoroscei n staining there is no scratches. I am going to put you on an antibiotic s to be precaution s. No contacts for 5 more days. This area is going to turn a dark brown color and then it will slowly resolve. [id number] KIMBERLY Sharp [address] [place] [address] 02/29/2024 17:53:10 02/29/2024 18:19:31 Acute pharyngitis 827106479 J02.9 Based on your Presentati on, Exam, [...] . Severe Headache Thank you for using [employer] today, please feel free to contact our office if you have any questions or concerns. [id number] KIMBERLY Sharp [address] [facility] [address] [place] [address] 03/04/2024 13:28:31 03/04/2024 13:44:42 Herpes zoster [id number] B02.9 You have been diagnosed with herpes [...] has scabbed over??? Thank you for using [employer] today, please feel free to contact our office if you have any questions or concerns. [id number] KIMBERLY Sharp [address] [place] [address] 03/18/2024 12:29:10 03/18/2024 12:49:40 Diarrhea 52262278 R19.7 Based on your presentati on and [...] require hospitaliz ation Thank you for using [employer] today, Please feel free to contact our office if you have any questions or concerns. Tension-type headache 39 2728332 G44.417 Headaches are extremely common - most people [...] if you have any questions or concerns. [id number] KIMBERLY Sharp [address] [facility] [address] [place] [address] 06/16/2024 10:54:11 06/16/2024 11:07:51 Upper respiratory infection 74786707 J06.9 Patient presented with symptoms of upper [...] Zamudio Member ID Guarantor Name 01/26/2023 1 [facility] - DIRECT CONNECTORCARE TYPE I (HMO) [id number] Paige Gusman [id number] Paige Bustostcmarilyn 02/29/2024 1 [facility] [employer] TYPE I (HMO) [id number] Paige Orozcok [id number] Paige Gusman 03/04/2024 1 [facility] [employer] TYPE I (HMO) [id number] Paige Gusman [id number] Paige Gusman 03/18/2024 1 [facility] TYPE I (HMO) [id number] Paige Gusman [id number] 02 Paige Gusman 06/16/2024 1 [facility] [employer] TYPE I (HMO) [id number] Paige Gusman [id number] 02 Paige Gusman Notes Date Note Type [...] on January 24 she ran into a [place]. She reports that she had contact in. [...] wearing contacts. KIMBERLY STRAUSS [address] [place], [address], PA - [facility] 01/26/2023 18:04:51 4 [...] up some mucus KIMBERLY Sharp, [place], [address], [place] - [facility] 02/29/2024 18:17:21 4 text/html 23 y/o female here with rash to the back of her head, painful on the right side, itchy on the left, but pain and itch feels like it's radiating along her head [place], [address], [place] - [facility] 03/04/2024 13:45:58 4 [...] then starts again. KIMBERLY Sharp, [place], [address], [place] - [facility] 03/18/2024 12:56:47 4 text/html 23 y/o female here with 3 days of congestion, sore throat, ear pain, no fevers, chills, body aches[place], [address], [place] - [facility] 06/16/2024 11:10:35 OBGyn Episode No OBEpisode recorded.
--- OUTSIDE RECORDS SUMMARY | 2024-11-08 09:51 | XMS_ITS ---
[facility] Name [facility] Organization Unknown Encounters Encounter Type Encounter Reason Primary Diagnosis Location Date Ambulatory [facility]. ([facility] 03/18/2024
[2024-11-08 10:27] LABS: HCG Quantitative < 2 mIU/mL
== END 2024-11-08 09:22 | disposition home or self-care (01) ==
LOC: HO.LAB 09:21
PROVIDERS: PCP Physician Assistant; Visit Provider Physician Assistant
DX: N91.2 Amenorrhea, unspecified (principal)
CPT/HCPCS: 36415; 84702

== ENCOUNTER 2024-12-12 14:06 | Outpatient (AMB) | payer OTHER, SELFPAY ==
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
--- OUTSIDE RECORDS SUMMARY | 2024-12-12 14:13 | XMS_ITS | Encounter Summary ---
Author Organization [facility] Address [address] [place] [address] Care Team Providers Care Mental Health Tech Name Role Phone Suellen Varela Primary Care Provider Brooklyna Yonis Hay Primary Care Provider Unavailab cerda Reason for Visit * Reason Comments E-prescribe Rx Request araceli Encounter Details Date Type Department Care Team Description 12/22/2016 Refill OBGYN - [place] [address] [place] [id number] Eleanor Charles CNM E-prescribe Rx Request (araceli) Social History Tobacco Use Types Packs/Day Years Used Date Smoking Tobacco: Never Smokeless Tobacco: Never Alcohol Use Standard Drinks/Week Comments No 0 (1 standard drink = 0.6 oz pur e alcohol) Sex Assigned at Date Recorded Not on file documented as of this encounter Miscellaneous Notes * Telephone Encounter - Sindy Bradford R.N. - 12/22/2016 9:25 AM EDT Pt needs appointment for BC follow up. Pt no showed recent appt. * Telephone Encounter - Shyla Levy - 12/22/2016 8:30 AM EDT WHEN WAS THE PATIENTS LAST ANNUAL METAL FINISHER EXAM? Pt Had a problem visit iris charles 09/06/16--do Not see a prev ag for pt Does patient have an upcoming appointment? No (THE MEDICATION REQUESTED IS ON THE MED LIST ABOVE) Did you check the Pharmacy information above?: YES Indicate how soon the patient needs the script: BY THE END OF THE DAY Patient would like script to be: E-PRESCRIBED/FAXED TO PHARMACY Is the doctor here today?: YES Can the message wait until the doctor returns?: NO Has the patient been told that the prescription will not be filled until the end of the day? YES Payor: [facility] MEDICAID / Plan: [place] MEDICAID HMO $0 DOS RIOS / Product Type: HMO Mye-bed-Hyahzql documented in this encounter Plan of Treatment Not on file documented as of this encounter Visit Diagnoses Not on filedocumented in this encounter Care Teams Mental Health Tech Relationship Specialty Start Date End Date Suellen Varela PCP - General Pediatrics 05/22/15 07/04/23 Yonis Steward PCP - General Internal Medicine 07/05/23 documented as of this encounter
[2024-12-12 14:17] VITALS: BP 110/66; BMI 20.6
== END 2024-12-13 08:58 | disposition home or self-care (01) ==
LOC: HO.HWSM 14:06
PROVIDERS: PCP Physician Assistant; Visit Provider Advanced Practice Midwife
DX: Z01.419 Encounter for gynecological examination (general) (routine) without abnormal findings (principal); N91.2 Amenorrhea, unspecified; Z62.810 Personal history of physical and sexual abuse in childhood
CPT/HCPCS: 99395; 99459

== ENCOUNTER 2024-12-12 14:06 | Outpatient (REF) | payer OTHER, SELFPAY ==
[2024-12-13 04:04] LABS: CT PCR NOT DETECTED (Not Detect.); NG PCR NOT DETECTED (Not Detect.)
[2024-12-13 11:29] LABS: Bacterial Vaginosis PCR NEGATIVE (Negative); Candida Group PCR DETECTED (Not Detect); Candida glab krusei PCR NOT DETECTED (Not Detect); Trichomonas vaginalis PCR NOT DETECTED (Not Detect)
== END 2024-12-12 14:07 | disposition home or self-care (01) ==
LOC: HO.LNP 14:06
PROVIDERS: PCP Physician Assistant; Visit Provider Advanced Practice Midwife
DX: Z01.419 Encounter for gynecological examination (general) (routine) without abnormal findings (principal); N91.2 Amenorrhea, unspecified; Z62.810 Personal history of physical and sexual abuse in childhood
CPT/HCPCS: 81515; 87491; 87591; 99395; 99459

== ENCOUNTER 2024-12-12 14:54 | Outpatient (REF) | payer OTHER, SELFPAY ==
[2024-12-12 16:30] LABS: Anion Gap 11 (12-20); Blood Urea Nitrogen 8 mg/dL (9-16); Calcium 8.8 mg/dL (8.4-10.2); Carbon Dioxide 27 mmol/L (22-29); Chloride 106 mmol/L (96-108); Estimated Glomerular Filt Rate > 60; Glucose Random 79 mg/dL (60-115); Potassium 3.8 mmol/L (3.3-5.1); Sodium 140 mmol/L (135-145)
== END 2024-12-12 14:55 | disposition home or self-care (01) ==
LOC: HO.HHCL 14:54
PROVIDERS: Visit Provider Physician Assistant
DX: R59.0 Localized enlarged lymph nodes (principal)
CPT/HCPCS: 36415; 80048

== ENCOUNTER 2025-01-03 12:39 | Outpatient (AMB) | payer OTHER, SELFPAY ==
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
[2025-01-03 13:07] VITALS: BP 126/82; PULSE 99; TEMP 36.9; O2SAT 99
--- OUTSIDE RECORDS SUMMARY | 2025-01-03 13:09 | XMS_ITS | Clinical Summary ---
Author Organization [employer] Address [address] [place] [address] Care Team Providers Care Personal Insurance Advisor Name Role Phone Unavailable Primary Care Provider Unavailabl e Encounters Date Type Department Care Team Description 10/04/2024 Population Health Risk Score [facility] (C3) Department [address] [id number] Provider, Population Health Generic from [...] 2000 HIV Screening 2000 SDOH Screening 2000 Disability Screening 2000 Alcohol/Substance Use Screening 2012 Tobacco Screening 2012 Family Planning (PISQ) 2015 HPV Vaccines (1 - 3-dose series) 2015 Hepatitis C Screening 2018 DTaP/Tdap/Td Vaccines (1 - Tdap) 2019 Hepatitis B Vaccines (1 of 3 - 19+ 3-dose series) 2019 Pap Smear 2021 COVID-19 Vaccine (1 - 2023-2 5 season) 2024 Influenza Vaccine (Season Ended) 2025 Zoster Vaccines (1 of 2) 2050 RSV [...] patient's age to complete this topic Meningococcal B Vaccine Aged Out No l onger eligible based on patient's age to complete [...]
== END 2025-01-03 14:05 | disposition home or self-care (01) ==
PROVIDERS: PCP Physician Assistant; Visit Provider Physician Assistant
DX: K13.79 Other lesions of oral mucosa (principal)

== ENCOUNTER → 2025-01-03 12:39 | Outpatient (BNVA) | payer OTHER, SELFPAY | PROVIDERS: PCP Physician Assistant; Visit Provider Physician Assistant | DX: K13.79 Other lesions of oral mucosa (principal) | CPT/HCPCS: 99212 ==

== ENCOUNTER 2025-06-30 08:56 | Outpatient (AMB) | payer OTHER, SELFPAY ==
[2025-06-30 09:02] VITALS: BP 120/70; PULSE 89; TEMP 36.2; O2SAT 99; BMI 19.6
--- NOTE | 2025-06-30 09:02 | A.OFFPC_ITS ---
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 Required: No Accompanied by: Self / Same As Patient Allergies No Known Allergies Allergy (Verified 06/30/25 09:39) Medication List - Last Reconciled 06/30/25 by Yonis Steward PA-C fluoride (sodium) 1.1% (Denta 5000 Plus) appl PO norethindrone ac-eth estradiol 1.5-30 mg-mcg (Junel) 1 tab PO DAILY oxcarbazepine (Trileptal) 600 mg PO BEDTIME quetiapine (Seroquel) 300 mg PO BEDTIME Tobacco use date assessed: 06/30/25 Dental Screening Dental Screen Date: 06/30/25 Did you have a dental visit in the last 12 months?: Yes Did you have a dental problem in the last 6 months where you did not have access to dental care?: No HPI PE HPI Details Patient is a 25-year-old female here today for an annual physical.. Patient has a past medical history significant for ADHD, major depressive disorder, opiate use disorder. Currently at [employer] going to school full-time. She is now working . .. Concern--> Her primary concern is chronic diarrhea that began over the summer and lasted for about six months. At its worst, she experienced diarrhea four to five times a day, but symptoms have improved over the last one to two months. She denies seeing any blood in her stool. 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 .. MDD: does see a psychiatrist and mental health therapist. He does have a history of the opiate use disorder and has been clean for a few years now. She now has her license back in his driving. 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 Declines flu vaccine today. . [facility] Medical History (Updated 06/30/25 @ 09:54 by Yonis Bin, PA-C) Screening for diabetes mellitus (DM) Flat feet, bilateral Annual physical exam Hx of substance abuse Family History Mother Lung cancer metastatic to brain Father No problems noted. 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 1. Little interest or pleasure in doing things: several days 2. Feeling down, depressed, or hopeless: several days 3. Trouble falling or staying asleep, or sleeping too much: several days 4. Feeling tired or having little energy: several days 5. Poor appetite or overeating: several days 6. Feeling bad about yourself - or that you are a failure or have let yourself or your family down: several days 7. Trouble concentrating on things, such as reading the newspaper or watching television: several days 8. Moving or speaking so slowly that other people could have noticed. Or the opposite - being so fidgety or restless that you have been moving around a lot more than usual: several days 9. Thoughts that you would be better off or of hurting yourself in some way: not at all Total score: 8 Depression Screening Interpretation: Positive Depression Screening Follow-up: Existing condition and In treatment Depression Screening Done: Yes 88438 - PHQ-9 Billing: Yes Source: Developed by Drs. Baltazar Granados, Estelle Taylor, David Brandt and colleagues, with an educational izabel from [employer]. Thrive Questionnaire Date Thrive assessed: 06/30/25 I am a: Patient What is your living situation today?: I have a steady place to live Within the past 12 months, did the food you bought not last and you didn't have the money to get more?: Never true Within the past 12 months, did you worry whether your food would run out before you got money to buy more?: Never true Do you have trouble paying for medicines?: No Do you have trouble getting transportation to medical appointments?: No Do you have trouble paying your heating and electricity bill?: No Do you have trouble taking care of your child, family member or friend?: No Do you have trouble with day-to-day activities such as bathing, preparing meals, shopping, managing finances, etc.?: No Are you currently unemployed and looking for a job?: I choose not to answer this question Are you interested in more education?: No Please select the resources that you would like help with: None Currently or been in a relationship where the following occur: I choose not to answer THRIVE Score: 0 AUDIT C Alcohol Use Questionnaire (AUDIT-C) 1. How often do you have a drink containing alcohol?: 2-4 times a month 2. How many drinks containing alcohol do you have on a typical day when you are drinking?: 3 or 4 3. How often do you have six or more drinks on one occasion?: Never Total Score: 3 MARY-7 AMB Questionnaire MARY-7 Date MARY - 7 assessed: 06/30/25 Feeling nervous, anxious, or on edge: 1 = Several days Not being able to stop or control worryin = Several days Worrying too much about different things: 1 = Several days Trouble relaxin = Several days Being so restless that it is hard to sit still: 1 = Several days Becoming easily annoyed or irritable: 1 = Several days Feeling afraid as if something awful might happen: 0 = Not at all Total MARY-7 score (0-4 normal; 5-9 mild; 10-14 moderate; 15-21 severe): 6 Source: Developed by Drs. Baltazar Granados, Estelle Taylor, David Brandt and colleagues, with an educational izabel from [employer]. MARY-7 Assessment Billing MARY-7 Assessment Tool: MARY-7 Assessment 59847 Review of Systems Const Denies body aches, Denies chills, Denies excessive sweating, Denies fatigue, Denies fever(s) and Denies headache(s) Eyes Denies blurry vision ENT Denies dysphagia, Denies vertigo, Denies dizziness, Denies headache(s), Denies hearing loss and Denies tinnitus Card Denies chest pain, Denies chest pain with activity, Denies syncope, Denies irregular heart rhythm and Denies dyspnea Resp Denies chest congestion, Denies cough, Denies hemoptysis, Denies dyspnea and Denies wheezing GI Denies abdominal pain, Denies melena, Denies hematochezia, Denies coffee ground emesis, Denies dysphagia, Reports diarrhea, Denies nausea and Denies vomiting Denies urinary frequency, Denies dysuria, Denies urinary hesitancy and Denies urinary urgency Musc Denies arthralgias, Denies limited range of motion, Denies muscle cramps and Denies muscle weakness Skin/Breast Denies rash and Denies skin ulcer Neuro Denies Abnormal speech present, Denies confusion, Denies vertigo, Denies dizziness, Denies syncope, Denies headache(s), Denies memory loss and Denies seizure-like activity Psych Denies anxiety, Denies confusion, Denies depression, Denies memory loss, Denies panic attacks and Denies paranoia Endo Denies excessive sweating, Denies fatigue, Denies flushing, Denies polydipsia and Denies polyuria Aller/Immun Denies wheezing Physical exam (Primary Care) Vital Signs: Last Vital Signs Temp 97.1 F 06/30/25 09:02 Pulse 89 06/30/25 09:02 BP 120/70 06/30/25 09:02 Pulse Ox 99 06/30/25 09:02 Oxygen Delivery Method Room Air 06/30/25 09:02 BMI result Body Mass Index 19.6 Tobacco/Smoking Status: Tobacco use Status Tobacco use date assessed 06/30/25 06/30/25 09:05 Patient Tobacco Use Status Current everyday Tobacco 06/30/25 09:05 Tobacco use type Smokeless Tobacco 06/30/25 09:05 e-Cigarette/Vaping Use Currently Using 06/30/25 09:05 PHQ-9: PHQ-9 Score PHQ-9: Total score 8 06/30/25 09:05 Depression Screening Interpretation: Positive Depression Screening Follow-up: Ex isting condition and In treatment Thrive Assessment: Date of Thrive Assessment Date Thrive assessed 06/30/25 06/30/25 09:05 Currently or been in a relationship where the following occur: I choose not to answer Const General: cooperative, comfortable, no acute distress, alert and awake; No confusion Orientation/consciousness: oriented to person, oriented to place, patient oriented x3 and No confusion HENMT Head: Yes normocephalic Ears: external ears normal and TM's normal bilaterally Face and sinus: No sinus tenderness Mouth: Normal oral and palatal mucosa present and tongue normal Teeth and gingiva: dentition normal and gingiva normal Throat: Yes posterior oropharynx normal, Yes tonsils normal and Yes uvula midline Eyes Conjunctivae: conjunctivae normal Sclerae: sclerae normal Pupils: Equal, round and reactive pupils present EOM: EOMs intact bilaterally Direct Ophthalmoscopy: No no photophobia Neck Neck: Yes no lymphadenopathy, No tender and Yes no JVD Thyroid: Thyroid normal Carotids: no bruits Chest Chest palpation & inspection: no tenderness Resp Effort & Inspection: normal respiratory effort, no audible wheezes, not labored and no stridor Auscultation: no crackles, no rales, no rhonchi and no wheezes Cardio Jugular venous distension: no JVD Rate: regular rate, not bradycardic and not tachycardic Rhythm: regular rhythm Bruits: no carotid bruits Peripheral pulses: Peripheral pulses 2+ throughout GI Inspection: Yes normal to inspection, No abdominal wall ecchymosis and No visible herniation Palpation (GI): Soft to palpation, nontender, no guarding, not rigid and No hepatosplenomegaly present Auscultation: normoactive bowel sounds General: Yes no CVA tenderness Back/Spine/Pelvis Back: no CVA tenderness and No back tenderness Cervical Spine: cervical ROM normal Thoracic/Lumbar Spine: thoracic and lumbar spine normal to inspection, straight leg raise negative bilaterally, No thoraco-lumbar ROM limited and No lumbar spinal tenderness Skin Lesions: no lesions Rashes: no rashes Wounds: no wounds Neuro General: oriented to person, oriented to place, patient oriented x3, CN's II-XI intact bilaterally and No confusion Cranial nerves: Yes Equal, round and reactive pupils present and Yes Normal accommodation reflex present Cognition (Neuro): normal cognition Speech: No Abnormal speech present Gait exam (Neuro): Normal gait present Motor exam (neuro): 5/5 motor strength present throughout Extrem Right upper extremity: full ROM; no cyanosis Left upper extremity: full ROM; no cyanosis Right lower extremity: no edema Left lower extremity: no edema Psych Appearance: grossly normal Mental Status: mental status grossly normal Affect: normal affect Attitude: cooperative Thought process: Normal thought process present Coding Level of Care Code Est Pt Prev Care 18-39y(51547) Diagnoses Annual physical exam Z00.00 MDD (major depressive disorder), recurrent episode, moderate F33.1 Bipolar disorder, in full remission, most recent episode hypomanic F31.72 Active/Remission status: in full remission Most recent bipolar episode type: hypomanic Irritable bowel syndrome with diarrhea K58.0 Irritable bowel syndrome type: with diarrhea Hx of substance abuse F19.11 MARY (generalized anxiety disorder) F41.1 Additional Codes PHQ-9 - 97626 - PHQ-9 Billing: Yes ([id number]) MARY-7 Assessment Billing - MARY-7 Assessment Tool: MARY-7 Assessment [id number] ([id number]) Assessment & Plan Assessment & Plan (1) Annual physical exam: Code(s): Z00.00 - Encounter for general adult medical examination without abnormal findings Category: Medical Plan: As per HPI (2) MDD (major depressive disorder), recurrent episode, moderate: Code(s): F33.1 - Major depressive disorder, recurrent, moderate Category: Medical Plan: Patient's PHQ-9 score positive for depression which has been existing condition for her. Patient continues to follow mental therapist in his psychiatrist who manages her mental health medications. She has been a bit more anxious as of late and has been manifesting with IBS D. She feels stable for mental health point of view. (3) Bipolar disorder: Code(s): F31.9 - Bipolar disorder, unspecified Category: Medical Qualifiers: Active/Remission status: in full remission Most recent bipolar episode type: hypomanic Qualified Code(s): F31.72 - Bipolar disorder, in full remission, most recent episode hypomanic Plan: As above (4) IBS (irritable bowel syndrome): Code(s): K58.9 - Irritable bowel syndrome, unspecified Category: Medical Qualifiers: Irritable bowel syndrome type: with diarrhea Qualified Code(s): K58.0 - Irritable bowel syndrome with diarrhea Plan: For the patient's chronic diarrhea, believed to be irritable bowel syndrome with diarrhea (IBS-D) exacerbated by anxiety, several [id number] options were discussed to manage symptoms. These include using an anti-diarrheal like Imodium (loperamide) to slow down bowel movements, a fiber supplement powder like Metamucil to bulk the stool, and probiotics, which can be found in yogurt or as an [id number] supplement. A stool study could be considered to rule out an infectious etiology, but given the strong correlation with stress, this is less likely. (5) Hx of substance abuse: Code(s): F19.11 - Other psychoactive substance abuse, in remission Category: Medical Plan: Patient has been sober from opiates for a few years now. 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 (6) MARY (generalized anxiety disorder): Code(s): F41.1 - Generalized anxiety disorder Category: Medical Plan: Patient's MARY-7 score positive for anxiety which has been existing condition for her. She does report having a bit more stress as of late resulting in apparently these GI issues. She continues to speak with a mental health therapist and her mental health med provider. Orders: Orders Comprehensive [place]. Panel Fast Today Z13.1 - Encounter for screening for diabetes mellitus Complete Blood Count no Diff Today Z13.1 - Encounter for screening for diabetes mellitus
== END 2025-06-30 09:53 | disposition home or self-care (01) ==
PROVIDERS: PCP Physician Assistant; Visit Provider Physician Assistant
DX: Z00.00 Encounter for general adult medical examination without abnormal findings (principal); F33.1 Major depressive disorder, recurrent, moderate; F31.72 Bipolar disorder, in full remission, most recent episode hypomanic; K58.0 Irritable bowel syndrome with diarrhea; F19.11 Other psychoactive substance abuse, in remission; F41.1 Generalized anxiety disorder

== ENCOUNTER → 2025-06-30 08:56 | Outpatient (BNVA) | payer OTHER, SELFPAY | PROVIDERS: PCP Physician Assistant; Visit Provider Physician Assistant | DX: Z00.00 Encounter for general adult medical examination without abnormal findings (principal); F90.9 Attention-deficit hyperactivity disorder, unspecified type; F31.72 Bipolar disorder, in full remission, most recent episode hypomanic; K58.0 Irritable bowel syndrome with diarrhea; F19.11 Other psychoactive substance abuse, in remission; F41.1 Generalized anxiety disorder | CPT/HCPCS: 96127; 99395 ==